=== PATIENT | male | born 1940 | race Caucasian/White ===

== ENCOUNTER 2017-09-08 17:19 | Inpatient (IN) ==
--- NOTE | 2017-09-08 17:39 | Emergency Department Note ---
Disposition Clinical Impression: Colitis, Pancytopenia Disposition: Admitted As Inpatient Condition: Good [facility]: [facility]Primary Care Provider[facility] - Forms: ED Satisfaction Letter, Work/School Release Nausea/Vomiting/Diarrhea HPI - General Chief complaint: ED Abdominal Pain Stated complaint: DIARRHEA/WEAKNESS Time Seen by Provider: 09/08/17 17:22 Source: patient Mode of arrival: EMS Limitations: no limitations Nursing Notes Reviewed: Yes Vital Signs Reviewed: Yes - History of Present Illness HPI Narrative: 76-year-old male history of myelodysplastic syndrome, prior C. difficile colitis who presents to the ER due to colitis and diarrhea. Patient reports he has had diarrhea for 3 days. He is going several times a day and describes his diarrhea as mucus. Reports this feels similar to when he had C. difficile back in May. Reports at that time he had been on antibiotics but denies any recent antibiotics or hospitalizations. He was seen in July at which time he was having a GI bleed and was sent to [place] for evaluation. He is chronically anemic secondary to myelodysplastic syndrome. He reports he has been nauseated with a few episodes of vomiting this morning. He was seen at the [facility] earlier today where they did a CT scan showing colitis from the hepatic flexure as well as severe splenomegaly. Patient was sent here for evaluation. Some shortness of breath as well as weakness. Pt Subjective Complaint: nausea, vomiting, diarrhea, abdominal pain Onset (ago): day(s) Description of Diarrhea: mucous Associated Abdominal Pain: Yes If pain, Location of pain: LLQ, RLQ Improves with: nothing Worsens with: nonthing Associated symptoms: Reports: nausea/vomiting - Related Data Allergies Allergy/AdvReac Type Severity Reaction Status Date / Time metformin AdvReac See Verified 07/14/17 11:04 Comments niacin AdvReac Fl[place] Verified 07/14/17 11:04 nitroglycerin AdvReac See Verified 07/14/17 11:04 Comments All systems ED: reviewed and negative except as stated. Constitutional: Denies: fever Cardiovascular: Denies: chest pain Respiratory: Reports: dyspnea Gastrointestinal: Reports: abdominal pain, nausea, vomiting, diarrhea Genitourinary: Denies: dysuria, hematuria Past Medical History - Past Medical History Attestation: Yes The following information was validated with the patient. Source: patient Medical history: Reports: CHF, diabetes, renal disease Psychiatric history: Reports: no psych history - Social History Smoking Status: Former smoker Smokeless Tobacco Status: No Alcohol use: Reports: none Drug use: Reports: none Physical Exam - General Limitations: no limitations General appearance: alert, in no apparent distress - Head Head exam: atraumatic, normocephalic - Eye Eye exam: Present: normal appearance - ENT ENT exam: normal exam - Neck Neck exam: Present: normal inspection, full ROM - Chest Chest inspection: Present: normal inspection, symmetric chest wall rise - Respiratory Respiratory exam: Present: normal lung sounds bilaterally - Cardiovascular Cardiovascular exam: Present: normal rhythm, tachycardia, normal heart sounds - Abdominal Exam Abdominal exam: Present: soft, tenderness (Mild lower abdominal tenderness). Absent: guarding, rigidity - Extremities Exam Extremities exam: Present: normal inspection, full ROM - Expanded Upper Extremity Exam Shoulder exam: Present: normal inspection, full ROM Arm exam: Present: normal inspection, full ROM Elbow exam: Present: normal inspection, full ROM Forearm/Wrist exam: Present: normal inspection, full ROM Hand exam: Present: normal inspection, full ROM - Expanded Lower Extremity Exam Hip/Pelvis exam: Present: normal inspection, full ROM Upper leg exam: Present: normal inspection, full ROM Knee exam: Present: normal inspection, full ROM Lower leg exam: Present: normal inspection, full ROM Ankle exam: Present: normal inspection, full ROM Foot/toe exam: Present: normal inspection, full ROM - Psychiatric Psychiatric exam: Present: normal affect - Skin Skin exam: Present: warm, dry, intact Course Course Narrative: Patient seen and examined. Vital signs reviewed. We will obtain repeat abdominal labs as well as C. difficile toxin and urinalysis. Labs from [place] reviewed showing pancytopenia with a WBC of 2.8, hemoglobin 7.8, platelets 34 as well as a BUN 52 and a creatinine of 2.34. - Reevaluation(s) Reevaluation #1: Discussed results of lab work with the patient and family. He again denies that he is having any GI bleeding and reports this is nothing like when he was here the previous time and sent to [place]. He is noted to be anemic at 6.8. He was about 7 at the [facility] likely delusional from receiving IV fluids there. He denies any bleeding from any source at this time. He is not on any antiplatelet or anticoagulation medications. Patient typed and screened and 1 unit of blood ordered for transfusion. We will also treat with Cipro and Flagyl as well as oral vancomycin. Vital Signs Pulse Rate 111 09/08/17 17:39 Respiratory Rate 18 09/08/17 17:39 Blood Pressure 127/65 09/08/17 17:39 O2 Sat by Pulse Oximetry 95 09/08/17 17:39 Temperature 98.6 F 09/08/17 18:30 Pulse Rate 111 09/08/17 18:30 Respiratory Rate 18 09/08/17 18:30 Blood Pressure 127/65 09/08/17 18:30 O2 Sat by Pulse Oximetry 95 09/08/17 18:30 Oxygen Delivery Oxygen Delivery Room Air Nausea/Vomiting/Diarrhea - MDM Narrative Medical decision making narrative: 76-year-old male presents to the ER due to diarrhea for 3 days. He has had numerous episodes of mucousy diarrhea at home. He has had C. difficile colitis once in the past in May treated inpatient. Denies any recent antibiotic use. He was seen at the [facility] where he had a CT scan showing colitis of the hepatic flexure as well as splenomegaly. He is noted to be pancytopenic here with a history of myelodysplastic syndrome. He has an acute kidney injury with a creatinine of 2.3 here. C. difficile toxin assay obtained. He is started empirically on oral vancomycin as well as Cipro and Flagyl and admitted to the hospitalist service.. - Lab Data Lab results reviewed: Yes I reviewed the patient's lab results. Result diagrams: 09/08/17 18:10 09/08/17 18:10 Lab Results 09/08/17 09/08/17 09/08/17 Range/Units 17:57 18:10 18:10 WBC 2.1 L (4.3-11.1) K/mcL RBC 2.08 L (4.19-5.50) M/mcL Hgb 6.8 L (12.9-16.9) g/dL Hct 23.4 L (37.5-50.1) % MCV 112.5 H (83.0-100.0) fL MCH 32.7 (28.0-33.3) pg MCHC 29.1 L (31.6-35.5) g/dL RDW 29.6 H (11.5-14.5) % Plt Count 30 L* (140-400) K/mcL Seg Neutrophils % 56.0 % Band Neutrophils % 4.0 (0-4) % Lymphocytes % 22.0 % Monocytes % 18.0 % Neutrophils # 1.3 L (1.6-8.9) K/mcL Lymphocytes # 0.5 L (0.6-4.6) K/mcL Monocytes # 0.4 (0.0-1.3) K/mcL Platelet Estimate Decreased L (Normal) Polychromasia 1+ A (Not Present) Poikilocytosis 2+ A (Not Present) Anisocytosis 2+ A (Not Present) PT 14.4 H (9.4-12.1) Seconds INR 1.3 Sodium (136-145) mEq/L Potassium (3.5-5.1) mEq/L Chloride (98-107) mEq/L Carbon Dioxide (23-29) mEq/L BUN (8-23) mg/dL Creatinine (0.70-1.30) mg/dL Est GFR ( Amer) (> 60) Est GFR (Non-Af Amer) (> 60) BUN/Creatinine Ratio (6-26) Glucose (70-105) mg/dL Calculated Osmolality (280-300) Calcium (8.6-10.3) mg/dL Total Bilirubin (0.3-1.0) mg/dL Direct Bilirubin (0.0-0.2) mg/dL Indirect Bilirubin (0.0-1.2) mg/dL AST (13-39) Units/L ALT (7-52) Units/L Alkaline Phosphatase (34-104) Units/L B-Natriuretic Peptide (Less than 100) pg/mL Serum Total Protein (6.4-8.9) g/dL Albumin (3.5-5.7) g/dL Globulin (2.4-3.5) g/dL Albumin/Globulin Ratio (1.1-2.2) Lipase (11-82) Units/L Stl C. diff Tox B Gene Negative (Negative) 09/08/17 09/08/17 Range/Units 18:10 18:10 WBC (4.3-11.1) K/mcL RBC (4.19-5.50) M/mcL Hgb (12.9-16.9) g/dL Hct (37.5-50.1) % MCV (83.0-100.0) fL MCH (28.0-33.3) pg MCHC (31.6-35.5) g/dL RDW (11.5-14.5) % Plt Count (140-400) K/mcL Seg Neutrophils % % Band Neutrophils % (0-4) % Lymphocytes % % Monocytes % % Neutrophils # (1.6-8.9) K/mcL Lymphocytes # (0.6-4.6) K/mcL Monocytes # (0.0-1.3) K/mcL Platelet Estimate (Normal) Polychromasia (Not Present) Poikilocytosis (Not Present) Anisocytosis (Not Present) PT (9.4-12.1) Seconds INR Sodium 136 (136-145) mEq/L Potassium 5.1 (3.5-5.1) mEq/L Chloride 108 H (98-107) mEq/L Carbon Dioxide 19 L (23-29) mEq/L BUN 57 H (8-23) mg/dL Creatinine 2.28 H (0.70-1.30) mg/dL Est GFR ( Amer) 34 L (> 60) Est GFR (Non-Af Amer) 28 L (> 60) BUN/Creatinine Ratio 25 (6-26) Glucose 196 H (70-105) mg/dL Calculated Osmolality 303 H (280-300) Calcium 8.2 L (8.6-10.3) mg/dL Total Bilirubin 2.0 H (0.3-1.0) mg/dL Direct Bilirubin 0.9 H (0.0-0.2) mg/dL Indirect Bilirubin 1.1 (0.0-1.2) mg/dL AST 20 (13-39) Units/L ALT 15 (7-52) Units/L Alkaline Phosphatase 362 H (34-104) Units/L B-Natriuretic Peptide 358 H (Less than 100) pg/mL Serum Total Protein 5.7 L (6.4-8.9) g/dL Albumin 2.7 L (3.5-5.7) g/dL Globulin 3.0 (2.4-3.5) g/dL Albumin/Globulin Ratio 0.9 L (1.1-2.2) Lipase 16 (11-82) Units/L Stl C. diff Tox B Gene (Negative) - Radiology Data Radiology results reviewed: Yes I reviewed the patient's radiology results. Randall - Randall Situation: Demographics, MOA Background: Presenting Complaint, Relevant PMH, Meds, & Allergies Assessment: Course and respsone to treatment, Exam Concerns, Patient/Family Expectation, Pertinant Lab Results Recommendation: Barrier(s) to disposition, Recommendation based on pending studies, treatments, or consults Randall Report Given to: Dr. Dulce Pereira Repor Time: 19:18
--- NOTE | 2017-09-08 17:49 | Emergency Department Note ---
START Narrative - START START: I examined this patient and my medical decision-making was reviewed with the Resident Physician. I agree with the documented findings, disposition and treatment plan as described except to the extent set forth below. 76-year-old male sent from the OR for concerns for infectious colitis and possible C. difficile colitis. Patient had a history of C. difficile in the past. He is complaining of some abdominal cramping. They did a CT abdomen and pelvis at the [facility] which showed colitis throughout the transverse colon and hepatic flexure region. Patient has been having intermittent bloody jelly- type stools. We will start him on Levaquin, Flagyl, oral vancomycin. We will admit the patient here at our facility.
[2017-09-08] MEDS ORDERED: 0.9 % Sodium Chloride 1,000 ML IVC ONE (18:09)
[2017-09-08 18:25] LABS: INR 1.3; Prothrombin Time 14.4 Seconds (9.4-12.1)
[2017-09-08] MEDS ORDERED: 0.9 % Sodium Chloride 1,000 ML IVC SCH (18:30)
[2017-09-08 18:35] LABS: Albumin 2.7 g/dL (3.5-5.7); Albumin/Globulin Ratio 0.9 (1.1-2.2); Bilirubin,Direct 0.9 mg/dL (0.0-0.2); Bilirubin,Indirect 1.1 mg/dL (0.0-1.2); Calcium 8.2 mg/dL (8.6-10.3); Potassium 5.1 mEq/L (3.5-5.1); Total Protein 5.7 g/dL (6.4-8.9)
[2017-09-08 18:38] LABS: Hematocrit 23.4 % (37.5-50.1); Hemoglobin 6.8 g/dL (12.9-16.9); Mean Corpuscular HGB Conc 29.1 g/dL (31.6-35.5); Mean Corpuscular Hemoglobin 32.7 pg (28.0-33.3); Mean Corpuscular Volume 112.5 fL (83.0-100.0); Red Blood Count 2.08 M/mcL (4.19-5.50); Red Cell Distribution Width 29.6 % (11.5-14.5)
[2017-09-08 18:39] LABS: Platelet Count 30 K/mcL (140-400)
[2017-09-08 18:41] LABS: Anisocytosis 2+ (Not Present); Lymphocytes # 0.5 K/mcL (0.6-4.6); Monocytes # 0.4 K/mcL (0.0-1.3); Neutrophils # 1.3 K/mcL (1.6-8.9); Platelet Estimate Decreased (Normal); Poikilocytosis 2+ (Not Present); Polychromasia 1+ (Not Present)
[2017-09-08] MEDS ORDERED: MetroNIDAZOLE 500 MG/100 ML 500 MG/100 ML BAG IVPB ONE (18:54)
[2017-09-08] MEDS ORDERED: Levofloxacin 750 MG/150 ML 750 MG/150 ML BAG IVPB ONE (18:54)
[2017-09-08] MEDS ORDERED: Vancomycin Oral Soln 250 MG/5 ML UDC PO ONE (19:14)
[2017-09-08] MEDS ORDERED: *HR* Morphine 2 MG/ML SYRINGE IVP PRN (19:43)
[2017-09-08] MEDS ORDERED: Ipratropium/Albuterol Neb 3 ML IH PRN (19:43)
[2017-09-08] MEDS ORDERED: *HR* Dextrose 50 % in Water (Syg) 50 ML SYRINGE IVP PRN (20:04)
[2017-09-08] MEDS ORDERED: Dextrose Gel 15 GM/37.5 ML TUBE PO PRN ×2 (20:04)
[2017-09-08] MEDS ORDERED: D5% in Water 1,000 ML IVC PRN (20:04)
[2017-09-08] MEDS ORDERED: Ondansetron 4 MG/2 ML VIAL IVP PRN (20:05)
[2017-09-08] MEDS ORDERED: Naloxone 0.4 MG/ML INJ IVP PRN (20:05)
--- NOTE | 2017-09-08 20:13 | Internal Med History&Physical ---
Date of Encounter: 09/08/17 Time of Encounter: 20:10 Assessment and Plan (1) Sepsis Current visit: Yes Status: Acute Sepsis secondary to acute colitis Continue ciprofloxacin and Flagyl Send panel Hold hydration as the patient is receiving 1 unit of blood, has history of diastolic CHF and currently has pedal edema Protonix for GI prophylaxis and sequential compression devices for DVT prophylaxis. The patient will be admitted as inpatient, expected to stay more than 2 midnights, DNR CC arrest DNI. Time spent on this admission 40 minutes Qualifiers: Sepsis type: sepsis due to unspecified organism Qualified Code(s): A41.9 - Sepsis, unspecified organism (2) Myelodysplastic syndrome Current visit: Yes Status: Acute Consider platelet transfusion (3) Chronic anemia Current visit: Yes Status: Acute Receive 1 unit of blood, monitor and consider further transfusions (4) Chronic kidney disease, stage IV (severe) Current visit: Yes Status: Acute (5) Diabetes Current visit: Yes Status: Acute Continue insulin Qualifiers: Diabetes mellitus type: type 2 Diabetes mellitus complication status: without complication Diabetes mellitus skilled nursing insulin use: with senior project accountant use Qualified Code(s): E11.9 - Type 2 diabetes mellitus without complications ; Z79.4 - jail (current) use of insulin; Z79.4 - jail (current) use of insulin; Z79.4 - division supervisor (current) use of insulin; Z79.4 - jail ( current) use of insulin (6) Colitis Current visit: Yes Status: Acute (7) Pancytopenia Current visit: Yes Status: Acute Internal Medicine - H&P: HPI Chief complaint: diarrhea and abdominal pain Admitted From: Emergency Dept History of present illness: Mr. James is a 76 year old male with a PMHx of C diff in the past, myelodysplastic syndrome, chronic kidney disease stage IV, GI bleed in July , pancytopenia, systolic CHF, diabetes type 2 insulin-dependent, MRSA. Patient came complaining of 3 days of mucus diarrhea, very watery. [place] the [place] initially and a CT scan showed acute colitis in the hepatic flexure, also splenomegaly. White blood cell count is 2.1 hemoglobin 6.8 with no signs of acute bleeding, platelets are 30 which she has a history of bicytopenia before, creatinine is 2.28 glucose 196, bilirubin total 2, alkaline phosphatase 362 BNP is 358 and a proBNP was 6324, patient has some bilateral lower extremity swelling. C. difficile test was negative here in the emergency room. He received oral vancomycin IV Flagyl and ciprofloxacin. Heart rate was 112, the patient was complaining of nausea and vomiting without any blood. Abdominal pain has improved slightly Past Med Surg Social Fam HX - Past Medical History Medical history: CHF (Diastolic CHF with an ejection fraction of 45-50%), diabetes (Insulin-dependent), renal disease (Chronic kidney disease of stage IV) , other (Cirrhosis, hypothyroidism, gout, prostate cancer, GI bleeding July , pancytopenia secondary to myelodysplastic syndrome, diabetes type 2 insulin- dependent, MRSA colonization, spinal stenosis, peripheral/diabetic neuropathy, hypertriglyceridemia, hyperlipidemia, diaphragmatic hernia, hypertension, gastric ulcers, PUD, esophagitis, GERD, osteoarthritis, tobacco use in the past) Psychiatric history: no psych history - Past Surgical History Surgical History: other (Left upper chest port, prostate seed, sciatic nerve for surgery) - Social History Smoking Status: Former smoker Smokeless Tobacco Status: No Alcohol use: none Drug use: none - Additional Family History Additional family history: Mother with diabetes Internal Medicine - H&P: Meds 3 Allergy/AdvReac Type Severity Reaction Status Date / Time metformin AdvReac See Verified 07/14/17 11:04 Comments niacin AdvReac Flushing Verified 07/14/17 11:04 nitroglycerin AdvReac See Verified 07/14/17 11:04 Comments All Systems PM: A 10-system review of systems was performed and is negative for pertinent findings except as documented above in the HPI. Review of systems: No chest pain, shortness of breath, other systems out of the 10 reviewed were negative. Extremely weak - Constitutional Vitals: Temp Pulse Resp BP Pulse Ox 98.6 F 111 18 124/64 95 09/08/17 18:30 09/08/17 18:30 09/08/17 20:01 09/08/17 20:01 09/08/17 18:30 General appearance: Present: A&O X 3 - Head Head exam: Present: atraumatic, normocephalic - Eye Eye exam: Present: PERRL, conjuntiva pink, sclera anicteric Pupils: Present: PERRL - Neck Neck exam general surgery: Present: supple, trachea midline. Absent: lymphadenopathy - Respiratory Respiratory exam: Present: CTAB. Absent: accessory muscle use, rales, rhonchi, wheezes - Cardiovascular Cardiovascular exam: Present: RRR, +S1, +S2, tachycardia. Absent: diastolic murmur, gallop, rubs, systolic murmur - GI/Abdominal GI/Abdominal exam: Present: normal bowel sounds, soft, no peritoneal signs. Absent: distended, tenderness - Extremities Exam Extremities exam: Present: pedal edema (+1 pitting edema in both lower extremities), warm, radial pulses palpable and symmetrical. Absent: calf tenderness, cyanotic - Neurological Exam Neurological exam: Present: CN II-XII intact, oriented X3, no focal deficits. Absent: pronater drift, facial droop, speech deficit - Skin Skin exam: Present: dry, intact Internal Med - H&P Results - Labs CBC & Chem 7: 09/08/17 18:10 09/08/17 18:10
[2017-09-08 21:14] LABS: Adenovirus F 40/41 PCR Not detected (Not detect); Astrovirus PCR Not detected (Not detect); C.difficile Toxin A/B by PCR Not detected (Not detect); Campylobacter by PCR Not detected (Not detect); Cryptosporidium by PCR Not detected (Not detect); Cyclospora cayetanensis PCR Not detected (Not detect); E. coli O157 by PCR Not detected (Not detect); Entamoeba histolytica PCR Not detected (Not detect); Enteroaggregative E.coli(EAEC) Not detected (Not detect); Enteropathogenic E.coli(EPEC) Not detected (Not detect); Enterotoxigenic E.coli (ETEC) Not detected (Not detect); Giardia lamblia PCR Not detected (Not detect); Norovirus GI/GII PCR ***DETECTED*** (Not detect); Plesiomonas shigelloides PCR Not detected (Not detect); Rotavirus A PCR Not detected (Not detect); Salmonella PCR Not detected (Not detect); Sapovirus PCR Not detected (Not detect); Shig/EnteroinvasiveE coli EIEC Not detected (Not detect); Shigalike tox-prod E coli STEC Not detected (Not detect); Vibrio PCR Not detected (Not detect); Vibrio cholerae PCR Not detected (Not detect); Yersinia enterocolitica PCR Not detected (Not detect)
[2017-09-08] MEDS: Pantoprazole 40 MG VIAL IVP SCH (22:11)
[2017-09-08] MEDS: *HR* Morphine 2 MG/ML SYRINGE IVP PRN (22:11)
[2017-09-08] MEDS: Gabapentin 100 MG CAPSULE PO SCH (22:11)
[2017-09-09] MEDS ORDERED: 0.9 % Sodium Chloride 250 ML ONE ×3 (00:45→22:03)
[2017-09-09] MEDS: Acetaminophen 325 MG TABLET PO PRN ×2 (01:37→20:55)
[2017-09-09 05:42] LABS: Basophils % 0.7 %; Eosinophils % 0.7 %; Hematocrit 22.5 % (37.5-50.1)
[2017-09-09 05:43] LABS: Hemoglobin 6.8 g/dL (12.9-16.9); Immature Granulocytes % 3.3 % (0-4); Lymphocytes # 0.4 K/mcL (0.6-4.6); Lymphocytes % 25.2 %; Mean Corpuscular HGB Conc 30.2 g/dL (31.6-35.5); Mean Corpuscular Hemoglobin 32.7 pg (28.0-33.3); Mean Corpuscular Volume 108.2 fL (83.0-100.0); Monocytes # 0.3 K/mcL (0.0-1.3); Monocytes % 19.2 %; Neutrophils # 0.8 K/mcL (1.6-8.9); Red Blood Count 2.08 M/mcL (4.19-5.50); Red Cell Distribution Width 28.2 % (11.5-14.5); Segmented Neutrophils % 50.9 %
[2017-09-09 05:45] LABS: Calcium 7.9 mg/dL (8.6-10.3); Potassium 4.9 mEq/L (3.5-5.1)
[2017-09-09 06:11] LABS: Platelet Count 22 K/mcL (140-400)
[2017-09-09 06:16] LABS: Anisocytosis 1+ (Not Present); Poikilocytosis 1+ (Not Present); Polychromasia 2+ (Not Present)
[2017-09-09 06:17] LABS: Platelet Estimate Decreased (Normal)
[2017-09-09] MEDS: Insulin LISPRO 300 UNITS/3 ML VIAL SQ SCH ×4 (08:24→21:01)
[2017-09-09] MEDS: Pantoprazole 40 MG VIAL IVP SCH (08:24)
[2017-09-09] MEDS: Gabapentin 100 MG CAPSULE PO SCH ×2 (08:24→20:55)
[2017-09-09] MEDS ORDERED: Isosorbide MONOnitrate (24 HR) 30 MG TAB.ER.24H PO SCH (09:00)
[2017-09-09 09:34] LABS: Hematocrit 23.7 % (37.5-50.1)
[2017-09-09 16:48] LABS: Hematocrit 21.2 % (37.5-50.1); Hemoglobin 6.5 g/dL (12.9-16.9)
--- NOTE | 2017-09-09 17:30 | Internal Med Progress Note ---
Date of Encounter: 09/09/17 Time of Encounter: 17:26 - Constitutional Vitals: Temp Pulse Resp BP Pulse Ox 97.5 F L 82 18 117/63 96 09/09/17 15:44 09/09/17 15:44 09/09/17 15:44 09/09/17 15:44 09/09/17 15:44 General appearance: Present: A&O X 3 Exam: - Head Head exam: Present: atraumatic, normocephalic - Eye Eye exam: Present: PERRL, conjuntiva pink, sclera anicteric Pupils: Present: PERRL - Neck Neck exam general surgery: Present: supple, trachea midline. Absent: lymphadenopathy - Respiratory Respiratory exam: Present: CTAB. Absent: accessory muscle use, rales, rhonchi, wheezes - Cardiovascular Cardiovascular exam: Present: RRR, +S1, +S2, tachycardia. Absent: diastolic murmur, gallop, rubs, systolic murmur - GI/Abdominal GI/Abdominal exam: Present: normal bowel sounds, soft, no peritoneal signs. Absent: distended, tenderness - Extremities Exam Extremities exam: Present: pedal edema (+1 pitting edema in both lower extremities), warm, radial pulses palpable and symmetrical. Absent: calf tenderness, cyanotic - Neurological Exam Neurological exam: Present: CN II-XII intact, oriented X3, no focal deficits. Absent: pronater drift, facial droop, speech deficit - Skin Skin exam: Present: dry, intact Internal Medicine: Result - Labs CBC & Chem 7: 09/09/17 15:00 09/09/17 05:19 Labs: Short CBC 09/09/17 09/09/17 09/09/17 Range/Units 05:19 09:13 15:00 WBC 1.5 L (4.3-11.1) K/mcL Hgb 6.8 L 7.0 L 6.5 L (12.9-16.9) g/dL Hct 22.5 L 23.7 L 21.2 L (37.5-50.1) % Plt Count 22 L* (140-400) K/mcL Neutrophils # 0.8 L (1.6-8.9) K/mcL BMP 09/09/17 05:19 Sodium 133 L Potassium 4.9 Chloride 107 Carbon Dioxide 20 L BUN 58 H Creatinine 2.39 H Glucose 142 H Calcium 7.9 L - ABG Interpretation ABG results: PT/INR, D-dimer PT 14.4 Seconds (9.4-12.1) H 09/08/17 18:10 Consult Discharge Plan - Plan [facility]errals: [facility] [Primary Care Provider] -
[2017-09-09] MEDS ORDERED: Furosemide 40 MG/4 ML VIAL IVP ONE (17:38)
[2017-09-09] MEDS: MetroNIDAZOLE 500 MG/100 ML 500 MG/100 ML BAG IVPB SCH (22:35)
[2017-09-10 03:14] LABS: Hemoglobin 8.1 g/dL (12.9-16.9)
[2017-09-10] MEDS: MetroNIDAZOLE 500 MG/100 ML 500 MG/100 ML BAG IVPB SCH ×3 (05:59→21:37)
[2017-09-10] MEDS: Gabapentin 100 MG CAPSULE PO SCH ×2 (09:11→21:37)
[2017-09-10] MEDS: Isosorbide MONOnitrate (24 HR) 30 MG TAB.ER.24H PO SCH (09:11)
[2017-09-10] MEDS: Pantoprazole 40 MG VIAL IVP SCH ×2 (09:12→09:13)
[2017-09-10] MEDS: Insulin LISPRO 300 UNITS/3 ML VIAL SQ SCH ×4 (09:13→21:11)
[2017-09-10 18:18] LABS: Eosinophils % 0.3 %
[2017-09-10 18:20] LABS: Basophils % 0.5 %; Hematocrit 28.6 % (37.5-50.1); Hemoglobin 8.8 g/dL (12.9-16.9); Immature Granulocytes % 2.3 % (0-4); Immature Platelets 9.3 % (1.1-6.1); Lymphocytes # 0.6 K/mcL (0.6-4.6); Lymphocytes % 13.9 %; Mean Corpuscular HGB Conc 30.8 g/dL (31.6-35.5); Mean Corpuscular Hemoglobin 31.4 pg (28.0-33.3); Mean Corpuscular Volume 102.1 fL (83.0-100.0); Mean Platelet Volume 10.8 fL (9.4-12.4); Monocytes # 0.5 K/mcL (0.0-1.3); Monocytes % 12.6 %; Neutrophils # 2.8 K/mcL (1.6-8.9); Segmented Neutrophils % 70.4 %
[2017-09-10 18:24] LABS: Platelet Count 22 K/mcL (140-400)
[2017-09-10 18:49] LABS: Anisocytosis 3+ (Not Present)
[2017-09-10 18:54] LABS: Hypochromasia Present (Not Present); Polychromasia 1+ (Not Present)
[2017-09-10 18:55] LABS: Basophilic Stippling 1+ (Not Present); Platelet Estimate Marked Decrease (Normal); Poikilocytosis 1+ (Not Present); Tear Drop Cells 1+ (Not Present)
--- NOTE | 2017-09-10 19:24 | Internal Med Progress Note ---
Date of Encounter: 09/10/17 Time of Encounter: 19:22 (Patient seen earlier today) - Assessment and plan (1) Sepsis Current Visit: Yes Status: Acute Assessment and plan: Positive sepsis criteria associated with colitis. C.diff PCR negative but PCR for rotovirus positive. Qualifiers: Sepsis type: sepsis due to unspecified organism Qualified Code(s): A41.9 - Sepsis, unspecified organism (2) Colitis Current Visit: Yes Status: Acute Assessment and plan: CT-Abd[facility]elvis from [facility] reportedly showed colitis at hepatic flexure and transverse colon. Continue empiric Cipro and Flagyl. GI consult to be ordered (3) Myelodysplastic syndrome Current Visit: Yes Status: Acute Assessment and plan: Neupogen and Procrit restarted. Given 2 units of PRBCs overnight. continue to monitor Neurophil count. (4) Diabetes Current Visit: Yes Status: Acute Assessment and plan: Continue current mgt. Qualifiers: Diabetes mellitus type: type 2 Diabetes mellitus complication status: without complication Diabetes mellitus fci insulin use: with rat exterminator use Qualified Code(s): E11.9 - Type 2 diabetes mellitus without complications ; Z79.4 - director long term care (current) use of insulin; Z79.4 - director long term care (current) use of insulin; Z79.4 - care home (current) use of insulin; Z79.4 - care home ( current) use of insulin - Subjective Interval history: Worsening anemia s/p transfusion of 2 Units PRBC overnight. Abdominal pain and generalized weakness. Lower extremity edema worseing. - Constitutional Vitals: Temp Pulse Resp BP Pulse Ox 97.7 F 83 14 119/53 98 09/10/17 19:10 09/10/17 19:10 09/10/17 19:10 09/10/17 19:10 09/10/17 19:10 General appearance: Present: A&O X 3 - Head Head exam: Present: atraumatic, normocephalic - Eye Eye exam: Present: EOMI, PERRL - Neck Neck exam general surgery: Present: supple, trachea midline - Respiratory Respiratory exam: Present: CTAB - Cardiovascular Additional comments: RRR w/o M,R or G - GI/Abdominal Additional comments: Soft without distention but mildl generalized tenderness. BS all 4 quads. No RBT - Skin Additional comments: Warm and dry without rashes Internal Medicine: Result - Labs CBC & Chem 7: 09/10/17 18:00 09/09/17 05:19 Labs: Short CBC 09/10/17 09/10/17 Range/Units 02:59 18:00 WBC 4.0 L D (4.3-11.1) K/mcL Hgb 8.1 L D 8.8 L (12.9-16.9) g/dL Hct 26.0 L 28.6 L (37.5-50.1) % Plt Count 22 L* (140-400) K/mcL Neutrophils # 2.8 (1.6-8.9) K/mcL - ABG Interpretation ABG results: PT/INR, D-dimer PT 14.4 Seconds (9.4-12.1) H 09/08/17 18:10 Consult Discharge Plan - Plan [facility]errals: [facility] [Primary Care Provider] -
[2017-09-10] MEDS: Acetaminophen 325 MG TABLET PO PRN (19:26)
[2017-09-11] MEDS: MetroNIDAZOLE 500 MG/100 ML 500 MG/100 ML BAG IVPB SCH ×3 (05:57→20:09)
[2017-09-11] MEDS: Insulin LISPRO 300 UNITS/3 ML VIAL SQ SCH ×4 (08:45→20:10)
[2017-09-11] MEDS: Isosorbide MONOnitrate (24 HR) 30 MG TAB.ER.24H PO SCH (09:01)
[2017-09-11] MEDS: Gabapentin 100 MG CAPSULE PO SCH ×2 (09:02→20:10)
[2017-09-11 16:50] LABS: Hemoglobin 8.5 g/dL (12.9-16.9); Mean Corpuscular Hemoglobin 31.7 pg (28.0-33.3); Red Blood Count 2.68 M/mcL (4.19-5.50)
[2017-09-11 16:52] LABS: Hematocrit 27.6 % (37.5-50.1); Immature Platelets 12.1 % (1.1-6.1); Mean Corpuscular HGB Conc 30.8 g/dL (31.6-35.5); Nucleated Red Blood Cells 2.8 /100 WBC (0); Red Cell Distribution Width 27.3 % (11.5-14.5)
[2017-09-11 17:01] LABS: Platelet Count 21 K/mcL (140-400)
[2017-09-11 17:18] LABS: Anisocytosis 3+ (Not Present); Lymphocytes # 0.5 K/mcL (0.6-4.6); Monocytes # 0.4 K/mcL (0.0-1.3); Polychromasia 1+ (Not Present)
[2017-09-11 17:19] LABS: Platelet Estimate Marked Decrease (Normal); Toxic Granulation Present (Not Present)
--- NOTE | 2017-09-11 19:44 | Internal Med Progress Note ---
Date of Encounter: 09/11/17 Time of Encounter: 19:41 (Seen in late afternoon) - Assessment and plan (1) Sepsis Current Visit: Yes Status: Resolved Qualifiers: Sepsis type: sepsis due to unspecified organism Qualified Code(s): A41.9 - Sepsis, unspecified organism (2) Colitis Current Visit: Yes Status: Acute Assessment and plan: GI consult to be ordered in am. With his severe thrombocytopenia he wouldnt be a good candidate for a colonoscopy. Continue Cipro and Flagyl. If he becomes neutropenic expand abx coverage (3) Myelodysplastic syndrome Current Visit: Yes Status: Acute Assessment and plan: Neupogen and Procrit restarted. Given 2 units of PRBCs overnight. continue to monitor Neurophil count. (4) Diabetes Current Visit: Yes Status: Acute Qualifiers: Diabetes mellitus type: type 2 Diabetes mellitus complication status: without complication Diabetes mellitus halfway insulin use: with parts counterman use Qualified Code(s): E11.9 - Type 2 diabetes mellitus without complications ; Z79.4 - terminal manager (current) use of insulin; Z79.4 - senior care (current) use of insulin; Z79.4 - senior care (current) use of insulin; Z79.4 - terminal manager ( current) use of insulin - Subjective Interval history: Leukopenia improved and no longer neutropenic after starting Neupogen. Anemai also improved after Transfusion 2 nights ago. He still c/o weakness. He reamians afebrile. His thrombocytopenia is slightly worse but no bleeding. His abdominal pain is essentially resolved. - Constitutional Vitals: Temp Pulse Resp BP Pulse Ox 97.5 F L 85 14 132/64 98 09/11/17 19:38 09/11/17 19:38 09/11/17 19:38 09/11/17 19:38 09/11/17 19:38 General appearance: Present: A&O X 3 - Head Head exam: Present: atraumatic, normal inspection, normocephalic - Eye Eye exam: Present: EOMI, PERRL, conjuntiva pink, sclera anicteric. Absent: conjunctival injection, scleral icterus Pupils: Present: PERRL - Neck Neck exam general surgery: Present: supple, trachea midline. Absent: lymphadenopathy - Respiratory Respiratory exam: Present: CTAB. Absent: accessory muscle use, rales, rhonchi, wheezes - Cardiovascular Cardiovascular exam: Present: RRR, +S1, +S2. Absent: diastolic murmur, gallop, rubs, systolic murmur - GI/Abdominal GI/Abdominal exam: Present: normal bowel sounds, soft, no peritoneal signs. Absent: distended, guarding, tenderness - Extremities Exam Extremities exam: Present: warm, radial pulses palpable and symmetrical. Absent : calf tenderness, cyanotic, pedal edema - Neurological Exam Neurological exam: Present: CN II-XII intact, oriented X3, no focal deficits. Absent: pronater drift, facial droop, speech deficit - Skin Skin exam: Present: dry, intact Internal Medicine: Result - Labs CBC & Chem 7: 09/11/17 16:33 09/09/17 05:19 Labs: Short CBC 09/11/17 Range/Units 16:33 WBC 6.4 D (4.3-11.1) K/mcL Hgb 8.5 L (12.9-16.9) g/dL Hct 27.6 L (37.5-50.1) % Plt Count 21 L* (140-400) K/mcL Neutrophils # 5.0 (1.6-8.9) K/mcL - ABG Interpretation ABG results: PT/INR, D-dimer PT 14.4 Seconds (9.4-12.1) H 09/08/17 18:10 Consult Discharge Plan - Plan [facility]errals: [facility] [Primary Care Provider] -
[2017-09-11] MEDS ORDERED: *HR* LORazepam 2 MG/ML VIAL IVP PRN (19:45)
[2017-09-11] MEDS: Acetaminophen 325 MG TABLET PO PRN (20:17)
[2017-09-12] MEDS: MetroNIDAZOLE 500 MG/100 ML 500 MG/100 ML BAG IVPB SCH ×3 (06:17→21:40)
[2017-09-12] MEDS: Insulin LISPRO 300 UNITS/3 ML VIAL SQ SCH ×4 (09:12→21:38)
[2017-09-12] MEDS: Gabapentin 100 MG CAPSULE PO SCH ×2 (09:14→21:37)
[2017-09-12] MEDS: HydrOXYzine SYP 10 MG/5 ML UDC PO SCH ×2 (09:14→21:37)
[2017-09-12] MEDS: Isosorbide MONOnitrate (24 HR) 30 MG TAB.ER.24H PO SCH (09:14)
[2017-09-12 09:46] LABS: Hematocrit 28.8 % (37.5-50.1); Hemoglobin 8.7 g/dL (12.9-16.9); Mean Corpuscular HGB Conc 30.2 g/dL (31.6-35.5)
[2017-09-12 09:47] LABS: Immature Platelets 9.5 % (1.1-6.1); Mean Corpuscular Hemoglobin 31.4 pg (28.0-33.3); Monocytes # 0.4 K/mcL (0.0-1.3); Nucleated Red Blood Cells 4.7 /100 WBC (0); Red Blood Count 2.77 M/mcL (4.19-5.50); Red Cell Distribution Width 27.6 % (11.5-14.5)
[2017-09-12 10:01] LABS: Platelet Count 24 K/mcL (140-400)
[2017-09-12 10:04] LABS: Calcium 7.9 mg/dL (8.6-10.3); Magnesium 1.6 mg/dL (1.6-2.6); Potassium 4.2 mEq/L (3.5-5.1)
[2017-09-12 10:22] LABS: Eosinophils # 0.1 K/mcL (0.0-0.6); Lymphocytes # 0.7 K/mcL (0.6-4.6); Neutrophils # 3.1 K/mcL (1.6-8.9); Platelet Estimate Decreased (Normal); Polychromasia 2+ (Not Present)
[2017-09-12] MEDS: Acetaminophen 325 MG TABLET PO PRN (16:42)
--- NOTE | 2017-09-12 20:50 | Internal Med Progress Note ---
Date of Encounter: 09/12/17 Time of Encounter: 20:47 (Seen earlier this afternoon) - Assessment and plan (1) Sepsis Current Visit: Yes Status: Resolved Assessment and plan: Positive sepsis criteria associated with colitis. C.diff PCR negative but PCR for rotovirus positive. I spoke with GI and he feels his colitis is likely ischemic colitis and current therapy should be continued. Continue Cipro plus Flagyl. Continue fluid and electrolyte replacemant as needed given ongoing diarrhea. Consider cholestyramine. Continue contact precautions. Qualifiers: Sepsis type: sepsis due to unspecified organism Qualified Code(s): A41.9 - Sepsis, unspecified organism (2) Colitis Current Visit: Yes Status: Acute (3) Myelodysplastic syndrome Current Visit: Yes Status: Acute Assessment and plan: Neupogen and Procrit restarted. Given 2 units of PRBCs initially. Continue to monitor Neurophil count. If he develops neuropenic fever or decline in PMNs consider ID consult and escalations of empiric ABx coverage. If platelets drop further or any signs of bleeding consult Heme and consider platelet transfusion. (4) Diabetes Current Visit: Yes Status: Acute Qualifiers: Diabetes mellitus type: type 2 Diabetes mellitus complication status: without complication Diabetes mellitus predatory animal exterminator insulin use: with halfway use Qualified Code(s): E11.9 - Type 2 diabetes mellitus without complications ; Z79.4 - intermediate (current) use of insulin; Z79.4 - termite control service representative (current) use of insulin; Z79.4 - termite control service representative (current) use of insulin; Z79.4 - intermediate ( current) use of insulin - Subjective Interval history: Still c/o generalized weakness and having multiple bouts of nonbloody diarrhea per day. His WBC had improved yesterday but started trending downward again. No fever and PMNs improved. - Constitutional Vitals: Temp Pulse Resp BP Pulse Ox 97.2 F L 86 15 121/60 94 09/12/17 17:00 09/12/17 17:00 09/12/17 17:00 09/12/17 17:00 09/12/17 17:00 General appearance: Present: A&O X 3 - Head Head exam: Present: atraumatic, normocephalic - Eye Eye exam: Present: EOMI, PERRL, conjuntiva pink, sclera anicteric Pupils: Present: PERRL - Neck Neck exam general surgery: Present: supple, trachea midline. Absent: lymphadenopathy - Respiratory Respiratory exam: Present: CTAB. Absent: accessory muscle use, rales, rhonchi, wheezes - Cardiovascular Cardiovascular exam: Present: RRR, +S1, +S2. Absent: diastolic murmur, gallop, rubs, systolic murmur - GI/Abdominal GI/Abdominal exam: Present: normal bowel sounds, soft, no peritoneal signs. Absent: distended, firm, guarding, tenderness - Extremities Exam Extremities exam: Present: warm, radial pulses palpable and symmetrical. Absent : calf tenderness, cyanotic, pedal edema - Neurological Exam Neurological exam: Present: CN II-XII intact, oriented X3, no focal deficits. Absent: pronater drift, facial droop, speech deficit - Skin Skin exam: Present: dry, intact Internal Medicine: Result - Labs CBC & Chem 7: 09/12/17 09:10 09/12/17 09:10 Labs: Short CBC 09/12/17 Range/Units 09:10 WBC 4.3 (4.3-11.1) K/mcL Hgb 8.7 L (12.9-16.9) g/dL Hct 28.8 L (37.5-50.1) % Plt Count 24 L* (140-400) K/mcL Neutrophils # 3.1 (1.6-8.9) K/mcL BMP 09/12/17 09:10 Sodium 136 Potassium 4.2 Chloride 114 H Carbon Dioxide 16 L BUN 56 H Creatinine 2.48 H Glucose 201 H Calcium 7.9 L - ABG Interpretation ABG results: PT/INR, D-dimer PT 14.4 Seconds (9.4-12.1) H 09/08/17 18:10 Consult Discharge Plan - Plan Referrals: [facility] [Outside]
[2017-09-13] MEDS: MetroNIDAZOLE 500 MG/100 ML 500 MG/100 ML BAG IVPB SCH ×3 (06:06→22:07)
[2017-09-13] MEDS ORDERED: Cholestyramine 4 GM POWD.PACK PO SCH (07:30)
[2017-09-13] MEDS: Insulin LISPRO 300 UNITS/3 ML VIAL SQ SCH ×4 (09:25→22:08)
[2017-09-13] MEDS: HydrOXYzine SYP 10 MG/5 ML UDC PO SCH ×2 (09:26→22:05)
[2017-09-13] MEDS: Isosorbide MONOnitrate (24 HR) 30 MG TAB.ER.24H PO SCH (09:26)
[2017-09-13] MEDS: Gabapentin 100 MG CAPSULE PO SCH ×2 (09:26→22:06)
[2017-09-13] MEDS: Cholestyramine 4 GM POWD.PACK PO SCH ×2 (11:09→22:07)
--- NOTE | 2017-09-13 14:16 | Internal Med Progress Note ---
Date of Encounter: 09/13/17 Time of Encounter: 14:16 - Assessment and plan (1) Sepsis Current Visit: Yes Status: Resolved Assessment and plan: Positive sepsis criteria associated with colitis. C.diff PCR negative but PCR for rotovirus positive. I spoke with GI and he feels his colitis is likely ischemic colitis and current therapy should be continued. Continue Cipro plus Flagyl. Continue fluid and electrolyte replacemant as needed given ongoing diarrhea. Cholestyramine started . Continue contact precautions. Qualifiers: Sepsis type: sepsis due to unspecified organism Qualified Code(s): A41.9 - Sepsis, unspecified organism (2) Colitis Current Visit: Yes Status: Acute Assessment and plan: GI consult to be ordered in am. With his severe thrombocytopenia he wouldnt be a good candidate for a colonoscopy. Continue Cipro and Flagyl. If he becomes neutropenic expand abx coverage (3) Myelodysplastic syndrome Current Visit: Yes Status: Acute (4) Diabetes Current Visit: Yes Status: Acute Qualifiers: Diabetes mellitus type: type 2 Diabetes mellitus complication status: without complication Diabetes mellitus intermediate card tender insulin use: with intermediate card tender use Qualified Code(s): E11.9 - Type 2 diabetes mellitus without complications ; Z79.4 - termite control service representative (current) use of insulin; Z79.4 - termite control service representative (current) use of insulin; Z79.4 - termite control service representative (current) use of insulin; Z79.4 - termite control service representative ( current) use of insulin - Subjective Interval history: Still c/o generalized weakness and having multiple bouts of nonbloody diarrhea per day but frequency decreased today. Overall he feels marginally better. No new complaints. - Constitutional Vitals: Temp Pulse Resp BP Pulse Ox 97.7 F 82 20 120/64 99 09/13/17 11:11 09/13/17 11:11 09/13/17 11:11 09/13/17 11:11 09/13/17 11:11 General appearance: Present: cooperative, A&O X 3, no acute distress, answers questions appropriately - Head Head exam: Present: atraumatic, normocephalic - Eye Eye exam: Present: EOMI, PERRL, conjuntiva pink, sclera anicteric Pupils: Present: PERRL - Neck Neck exam general surgery: Present: supple, trachea midline. Absent: lymphadenopathy - Respiratory Respiratory exam: Present: CTAB. Absent: accessory muscle use, rales, rhonchi, wheezes - Cardiovascular Cardiovascular exam: Present: RRR, +S1, +S2. Absent: diastolic murmur, gallop, rubs, systolic murmur - GI/Abdominal GI/Abdominal exam: Present: hyperactive bowel sounds, normal bowel sounds, soft , no peritoneal signs. Absent: distended, guarding, rebound, rigid, tenderness - Extremities Exam Extremities exam: Present: warm, radial pulses palpable and symmetrical. Absent : calf tenderness, cyanotic, pedal edema - Neurological Exam Neurological exam: Present: CN II-XII intact, oriented X3, no focal deficits. Absent: pronater drift, facial droop, speech deficit - Skin Skin exam: Present: dry, intact Internal Medicine: Result - Labs CBC & Chem 7: 09/12/17 09:10 09/12/17 09:10 - ABG Interpretation ABG results: PT/INR, D-dimer PT 14.4 Seconds (9.4-12.1) H 09/08/17 18:10 Consult Discharge Plan - Plan Referrals: [facility] [Outside]
[2017-09-13] MEDS ORDERED: Furosemide 20 MG TABLET PO PRN (14:18)
[2017-09-13] MEDS: Acetaminophen 325 MG TABLET PO PRN (16:13)
[2017-09-13] MEDS: Insulin DETEMIR 100 UNIT/ML X5UNITS SQ SCH (22:06)
[2017-09-14] MEDS: MetroNIDAZOLE 500 MG/100 ML 500 MG/100 ML BAG IVPB SCH ×3 (06:47→21:46)
[2017-09-14 08:25] LABS: Hemoglobin 9.2 g/dL (12.9-16.9)
[2017-09-14 08:27] LABS: Hematocrit 30.3 % (37.5-50.1); Immature Platelets 7.3 % (1.1-6.1); Mean Corpuscular HGB Conc 30.4 g/dL (31.6-35.5); Mean Corpuscular Hemoglobin 31.8 pg (28.0-33.3); Mean Corpuscular Volume 104.8 fL (83.0-100.0); Nucleated Red Blood Cells 9.5 /100 WBC (0); Red Blood Count 2.89 M/mcL (4.19-5.50); Red Cell Distribution Width 28.3 % (11.5-14.5)
[2017-09-14] MEDS: HydrOXYzine SYP 10 MG/5 ML UDC PO SCH ×2 (08:47→21:46)
[2017-09-14] MEDS: Gabapentin 100 MG CAPSULE PO SCH ×2 (08:47→21:47)
[2017-09-14] MEDS: Isosorbide MONOnitrate (24 HR) 30 MG TAB.ER.24H PO SCH (08:47)
[2017-09-14] MEDS: Insulin LISPRO 300 UNITS/3 ML VIAL SQ SCH ×4 (08:50→22:07)
[2017-09-14 08:51] LABS: Calcium 8.3 mg/dL (8.6-10.3); Potassium 4.6 mEq/L (3.5-5.1)
[2017-09-14 09:01] LABS: Platelet Count 23 K/mcL (140-400)
[2017-09-14 09:23] LABS: Monocytes # 0.3 K/mcL (0.0-1.3)
[2017-09-14 09:25] LABS: Lymphocytes # 0.6 K/mcL (0.6-4.6); Neutrophils # 1.3 K/mcL (1.6-8.9)
[2017-09-14 09:26] LABS: Platelet Estimate Marked Decrease (Normal)
[2017-09-14] MEDS: Cholestyramine 4 GM POWD.PACK PO SCH ×2 (12:54→19:45)
--- NOTE | 2017-09-14 16:04 | Internal Med Progress Note ---
Date of Encounter: 09/14/17 Time of Encounter: 16:03 - Assessment and plan (1) Sepsis Current Visit: Yes Status: Resolved Qualifiers: Sepsis type: sepsis due to unspecified organism Qualified Code(s): A41.9 - Sepsis, unspecified organism (2) Colitis Current Visit: Yes Status: Acute (3) Myelodysplastic syndrome Current Visit: Yes Status: Acute (4) Diabetes Current Visit: Yes Status: Acute Qualifiers: Diabetes mellitus type: type 2 Diabetes mellitus complication status: without complication Diabetes mellitus superintendent marine oil terminal insulin use: with shelter use Qualified Code(s): E11.9 - Type 2 diabetes mellitus without complications ; Z79.4 - [facility] (current) use of insulin; Z79.4 - [facility] (current) use of insulin; Z79.4 - [facility] (current) use of insulin; Z79.4 - [facility] ( current) use of insulin - Subjective Interval history: Still c/o generalized weakness but no diarrhea since yesterday evening - Constitutional Vitals: Temp Pulse Resp BP Pulse Ox 98.3 F 84 16 115/64 98 09/14/17 05:56 09/14/17 05:56 09/14/17 05:56 09/14/17 05:56 09/14/17 05:56 General appearance: Present: cooperative, A&O X 3, no acute distress, answers questions appropriately Internal Medicine: Result - Labs CBC & Chem 7: 09/14/17 08:02 09/14/17 08:02 Labs: Short CBC 09/14/17 Range/Units 08:02 WBC 2.2 L (4.3-11.1) K/mcL Hgb 9.2 L (12.9-16.9) g/dL Hct 30.3 L (37.5-50.1) % Plt Count 23 L* (140-400) K/mcL Neutrophils # 1.3 L (1.6-8.9) K/mcL BMP 09/14/17 08:02 Sodium 138 Potassium 4.6 Chloride 117 H Carbon Dioxide 17 L BUN 47 H Creatinine 2.20 H Glucose 155 H Calcium 8.3 L - ABG Interpretation ABG results: PT/INR, D-dimer PT 14.4 Seconds (9.4-12.1) H 09/08/17 18:10 Consult Discharge Plan - Plan Referrals: [facility] [Outside]
[2017-09-14] MEDS: Acetaminophen 325 MG TABLET PO PRN (17:47)
[2017-09-14] MEDS: Insulin DETEMIR 100 UNIT/ML X5UNITS SQ SCH (22:00)
[2017-09-15] MEDS: *HR* Morphine 2 MG/ML SYRINGE IVP PRN (01:31)
[2017-09-15] MEDS: MetroNIDAZOLE 500 MG/100 ML 500 MG/100 ML BAG IVPB SCH ×3 (05:33→20:54)
[2017-09-15] MEDS: HydrOXYzine SYP 10 MG/5 ML UDC PO SCH ×2 (08:11→20:54)
[2017-09-15] MEDS: Gabapentin 100 MG CAPSULE PO SCH ×2 (08:11→20:54)
[2017-09-15] MEDS: Isosorbide MONOnitrate (24 HR) 30 MG TAB.ER.24H PO SCH (08:11)
[2017-09-15] MEDS: Insulin LISPRO 300 UNITS/3 ML VIAL SQ SCH ×4 (08:11→20:55)
[2017-09-15] MEDS: Cholestyramine 4 GM POWD.PACK PO SCH ×2 (12:29→17:13)
[2017-09-15 17:14] LABS: Hemoglobin 8.9 g/dL (12.9-16.9); Mean Corpuscular Hemoglobin 31.6 pg (28.0-33.3); Red Blood Count 2.82 M/mcL (4.19-5.50)
[2017-09-15 17:15] LABS: Basophils % 1.8 %; Eosinophils % 0.6 %; Hematocrit 29.7 % (37.5-50.1); Immature Granulocytes % 8.8 % (0-4); Lymphocytes # 0.7 K/mcL (0.6-4.6); Lymphocytes % 39.2 %; Mean Corpuscular Volume 105.3 fL (83.0-100.0); Mean Platelet Volume 12.6 fL (9.4-12.4); Monocytes # 0.2 K/mcL (0.0-1.3); Monocytes % 12.3 %; Neutrophils # 0.6 K/mcL (1.6-8.9); Nucleated Red Blood Cells 9.9 /100 WBC (0); Red Cell Distribution Width 27.9 % (11.5-14.5); Segmented Neutrophils % 37.3 %
[2017-09-15 17:21] LABS: Platelet Count 22 K/mcL (140-400)
[2017-09-15 17:38] LABS: Albumin 2.9 g/dL (3.5-5.7); Albumin/Globulin Ratio 1.1 (1.1-2.2); Calcium 8.1 mg/dL (8.6-10.3); Globulin 2.7 g/dL (2.4-3.5); Potassium 4.8 mEq/L (3.5-5.1); Total Protein 5.6 g/dL (6.4-8.9)
[2017-09-15 18:12] LABS: Platelet Estimate Marked Decrease (Normal)
[2017-09-15] MEDS: Acetaminophen 325 MG TABLET PO PRN (18:34)
--- NOTE | 2017-09-15 18:39 | Internal Med Progress Note ---
Date of Encounter: 09/15/17 Time of Encounter: 18:37 (Seen earlier today) - Assessment and plan (1) Sepsis Current Visit: Yes Status: Resolved Assessment and plan: Positive sepsis criteria associated with colitis. C.diff PCR negative but PCR for rotovirus positive. I spoke with GI and he feels his colitis is likely ischemic colitis and current therapy should be continued. Continue Cipro plus Flagyl for 10-14 days. Continue fluid and electrolyte replacemant as needed given ongoing diarrhea. Cholestyramine started . Continue contact precautions. Qualifiers: Sepsis type: sepsis due to unspecified organism Qualified Code(s): A41.9 - Sepsis, unspecified organism (2) Colitis Current Visit: Yes Status: Acute Assessment and plan: GI consult to be ordered in am. With his severe thrombocytopenia he wouldnt be a good candidate for a colonoscopy. Continue Cipro and Flagyl. If he becomes neutropenic expand abx coverage. His platelets are stable at 20-23K with no bleeding. His PMNs are > 1000. (3) Myelodysplastic syndrome Current Visit: Yes Status: Acute Assessment and plan: Neupogen and Procrit restarted. Given 2 units of PRBCs initially. Continue to monitor Neurophil count. Both platelet and PMNs have been low but stable (4) Diabetes Current Visit: Yes Status: Acute Qualifiers: Diabetes mellitus type: type 2 Diabetes mellitus complication status: without complication Diabetes mellitus alf insulin use: with alf use Qualified Code(s): E11.9 - Type 2 diabetes mellitus without complications ; Z79.4 - termite technician (current) use of insulin; Z79.4 - [facility] (current) use of insulin; Z79.4 - [facility] (current) use of insulin; Z79.4 - [facility] ( current) use of insulin - Subjective Interval history: He feels much better today and hasn't had diarrhea for over 36 hrs. - Constitutional Vitals: Temp Pulse Resp BP Pulse Ox 97.7 F 80 15 115/64 100 09/15/17 07:05 09/15/17 07:05 09/15/17 07:05 09/15/17 07:05 09/15/17 07:05 General appearance: Present: cooperative, A&O X 3, no acute distress, answers questions appropriately - Neck Neck exam general surgery: Present: supple, trachea midline. Absent: lymphadenopathy - Respiratory Respiratory exam: Present: CTAB. Absent: accessory muscle use, rales, rhonchi, wheezes Internal Medicine: Result - Labs CBC & Chem 7: 09/15/17 16:49 09/15/17 16:49 Labs: Short CBC 09/15/17 Range/Units 16:49 WBC 1.7 L (4.3-11.1) K/mcL Hgb 8.9 L (12.9-16.9) g/dL Hct 29.7 L (37.5-50.1) % Plt Count 22 L* (140-400) K/mcL Neutrophils # 0.6 L (1.6-8.9) K/mcL BMP 09/15/17 16:49 Sodium 135 L Potassium 4.8 Chloride 115 H Carbon Dioxide 14 L BUN 47 H Creatinine 2.31 H Glucose 208 H Calcium 8.1 L Liver Function 09/15/17 Range/Units 16:49 Total Bilirubin 1.0 (0.3-1.0) mg/dL AST 25 (13-39) Units/L ALT 15 (7-52) Units/L Alkaline Phosphatase 303 H (34-104) Units/L Albumin 2.9 L (3.5-5.7) g/dL - ABG Interpretation ABG results: PT/INR, D-dimer PT 14.4 Seconds (9.4-12.1) H 09/08/17 18:10 Consult Discharge Plan - Plan Referrals: [facility] [Outside]
[2017-09-15] MEDS: Insulin DETEMIR 100 UNIT/ML X5UNITS SQ SCH (20:54)
[2017-09-16] MEDS: MetroNIDAZOLE 500 MG/100 ML 500 MG/100 ML BAG IVPB SCH ×3 (05:28→20:00)
[2017-09-16] MEDS: HydrOXYzine SYP 10 MG/5 ML UDC PO SCH ×2 (09:38→19:59)
[2017-09-16] MEDS: Gabapentin 100 MG CAPSULE PO SCH ×2 (09:38→19:58)
[2017-09-16] MEDS: Isosorbide MONOnitrate (24 HR) 30 MG TAB.ER.24H PO SCH (09:39)
[2017-09-16] MEDS: Loratadine 10 MG TABLET PO SCH (09:40)
[2017-09-16] MEDS: Insulin LISPRO 300 UNITS/3 ML VIAL SQ SCH ×3 (09:45→17:54)
[2017-09-16] MEDS: Cholestyramine 4 GM POWD.PACK PO SCH ×2 (12:27→20:02)
--- NOTE | 2017-09-16 16:55 | Internal Med Progress Note ---
Date of Encounter: 09/16/17 Time of Encounter: 16:53 - Assessment and plan (1) Sepsis Current Visit: Yes Status: Resolved Assessment and plan: Positive sepsis criteria associated with colitis. C.diff PCR negative but PCR for rotovirus positive. I spoke with GI and he feels his colitis is likely ischemic colitis and current therapy should be continued. He will likely need a colonoscopy at point in the future, but because of his thrombocytopenia this will need to wait. Continue Cipro plus Flagyl for 10-14 days. Today is day #7. Lasix was restarted and IVFs d/c's. Today his dose of lasix was increased to 6o mg daily. Cholestyramine can likely be d/c'd soon. Continue contact precautions. Qualifiers: Sepsis type: sepsis due to unspecified organism Qualified Code(s): A41.9 - Sepsis, unspecified organism (2) Colitis Current Visit: Yes Status: Acute Assessment and plan: Continue Cipro and Flagyl 10-14 days. colonoscopy as outpatient when platelets increased. (3) Myelodysplastic syndrome Current Visit: Yes Status: Acute Assessment and plan: Neupogen and Procrit restarted. [facility] He was given 2 units of PRBCs initially. Continue to monitor Neurophil count. Neutropenic precautions ordered but no fever. He will continue to f/u with heme.Onc in [place]. (4) Diabetes Current Visit: Yes Status: Acute Qualifiers: Diabetes mellitus type: type 2 Diabetes mellitus complication status: without complication Diabetes mellitus terminal operations manager insulin use: with terminal operations manager use Qualified Code(s): E11.9 - Type 2 diabetes mellitus without complications ; Z79.4 - longterm (current) use of insulin; Z79.4 - intermediate designer (current) use of insulin; Z79.4 - longterm (current) use of insulin; Z79.4 - intermediate designer ( current) use of insulin - Subjective Interval history: Still no diarrhea for 48 hrs. His strength is returning to baseline. His has LE edema. - Constitutional Vitals: Temp Pulse Resp BP Pulse Ox 98.2 F 85 15 141/68 99 09/16/17 16:37 09/16/17 16:37 09/16/17 16:37 09/16/17 16:37 09/16/17 16:37 General appearance: Present: cooperative, A&O X 3, no acute distress, answers questions appropriately - Head Head exam: Present: atraumatic, normal inspection, normocephalic - Eye Eye exam: Present: EOMI, PERRL - ENT ENT exam: Present: mucous membranes dry, normal exam, normal oropharynx - Neck Neck exam general surgery: Present: supple, trachea midline. Absent: tenderness , nuchal rigidity, thyromegaly - Respiratory Respiratory exam: Present: CTAB. Absent: accessory muscle use, chest wall tenderness, rhonchi, stridor - Cardiovascular Cardiovascular exam: Present: RRR, +S1, +S2. Absent: JVD - Expanded Psychiatric Exam Focused psych exam: Absent: paranoid, pressured speech, psychomotor agitation, restlessness - Skin Skin exam: Present: dry, normal color, warm. Absent: petechiae, rash Internal Medicine: Result - Labs CBC & Chem 7: 09/15/17 16:49 09/15/17 16:49 Labs: Short CBC 09/15/17 Range/Units 16:49 WBC 1.7 L (4.3-11.1) K/mcL Hgb 8.9 L (12.9-16.9) g/dL Hct 29.7 L (37.5-50.1) % Plt Count 22 L* (140-400) K/mcL Neutrophils # 0.6 L (1.6-8.9) K/mcL BMP 09/15/17 16:49 Sodium 135 L Potassium 4.8 Chloride 115 H Carbon Dioxide 14 L BUN 47 H Creatinine 2.31 H Glucose 208 H Calcium 8.1 L Liver Function 09/15/17 Range/Units 16:49 Total Bilirubin 1.0 (0.3-1.0) mg/dL AST 25 (13-39) Units/L ALT 15 (7-52) Units/L Alkaline Phosphatase 303 H (34-104) Units/L Albumin 2.9 L (3.5-5.7) g/dL - ABG Interpretation ABG results: PT/INR, D-dimer PT 14.4 Seconds (9.4-12.1) H 09/08/17 18:10 Consult Discharge Plan - Plan Referrals: [facility] [Outside]
[2017-09-16] MEDS: Furosemide 40 MG TABLET PO SCH (17:53)
[2017-09-16] MEDS: Acetaminophen 325 MG TABLET PO PRN (19:13)
[2017-09-16] MEDS: *HR* Morphine 2 MG/ML SYRINGE IVP PRN (19:57)
[2017-09-16] MEDS: Insulin DETEMIR 100 UNIT/ML X5UNITS SQ SCH (19:58)
[2017-09-17] MEDS: Insulin LISPRO 300 UNITS/3 ML VIAL SQ SCH ×3 (01:42→11:49)
[2017-09-17] MEDS ORDERED: *HR* HYDROcodone/Acet 5/325 mg TABLET PO PRN (05:21)
[2017-09-17] MEDS: MetroNIDAZOLE 500 MG/100 ML 500 MG/100 ML BAG IVPB SCH ×2 (05:51→14:04)
[2017-09-17] MEDS: Furosemide 40 MG TABLET PO SCH (05:52)
[2017-09-17 06:50] LABS: Basophils % 1.1 %; Eosinophils % 0.6 %; Hematocrit 28.2 % (37.5-50.1); Hemoglobin 8.5 g/dL (12.9-16.9); Immature Granulocytes % 16.2 % (0-4); Immature Platelets 7.3 % (1.1-6.1); Lymphocytes # 0.6 K/mcL (0.6-4.6); Lymphocytes % 30.7 %; Mean Corpuscular HGB Conc 30.1 g/dL (31.6-35.5); Mean Platelet Volume 13.1 fL (9.4-12.4); Monocytes # 0.2 K/mcL (0.0-1.3); Monocytes % 13.4 %; Neutrophils # 0.7 K/mcL (1.6-8.9); Nucleated Red Blood Cells 5.6 /100 WBC (0); Red Blood Count 2.66 M/mcL (4.19-5.50); Red Cell Distribution Width 27.9 % (11.5-14.5)
[2017-09-17 06:51] LABS: Potassium 5.1 mEq/L (3.5-5.1)
[2017-09-17 07:07] LABS: Platelet Count 17 K/mcL (140-400)
[2017-09-17 08:19] LABS: Platelet Estimate Decreased (Normal)
[2017-09-17] MEDS: Isosorbide MONOnitrate (24 HR) 30 MG TAB.ER.24H PO SCH (08:28)
[2017-09-17] MEDS: Gabapentin 100 MG CAPSULE PO SCH (08:28)
[2017-09-17] MEDS: Loratadine 10 MG TABLET PO SCH (08:29)
[2017-09-17] MEDS: HydrOXYzine SYP 10 MG/5 ML UDC PO SCH (08:30)
[2017-09-17 11:39] VITALS: BP 112/64
[2017-09-17] MEDS: Cholestyramine 4 GM POWD.PACK PO SCH (11:46)
--- NOTE | 2017-09-17 14:24 | Discharge Summary ---
Date of Encounter: 09/17/17 Time of Encounter: 11:00 - Discharge Diagnosis (1) Colitis Priority: Primary Status: Acute (2) Myelodysplastic syndrome Priority: Secondary Status: Acute - Discharge Medications Prescriptions: Ciprofloxacin HCl [Cipro] 250 mg PO BID #8 tab metroNIDAZOLE [Flagyl] 500 mg PO TID #12 tablet Home Medications: Atorvastatin Calcium [Lipitor] 10 mg PO DAILY 09/09/17 [History] Cholecalciferol (D-3) [Vitamin D] 1,000 unit PO DAILY 09/09/17 [History] Filgrastim [Neupogen] 480 mcg SQ TU 09/09/17 [History] Furosemide [Lasix] 40 mg PO BID 09/09/17 [History] Gabapentin [Neurontin] 200 mg PO BID 09/09/17 [History] Hydroxyzine HCl 20 mg PO BID 09/09/17 [History] Insulin NPH, HUMAN [HumuLIN N] 46 unit SQ QAM 09/09/17 [History] Insulin NPH, HUMAN [HumuLIN N] 50 units SQ QPM 09/09/17 [History] Isosorbide MONOnitrate (24 HR) [Imdur] 15 mg PO DAILY 09/09/17 [History] Levothyroxine Sodium [Levoxyl] 100 mcg PO DAILY 09/09/17 [History] Omeprazole 20 mg PO BID 09/09/17 [History] Propranolol [Inderal] 20 mg PO BID 09/09/17 [History] Darbepoetin [Aranesp] 500 mcg SQ QWEEK 09/10/17 [History] Calcitriol [Rocaltrol] 0.25 mcg PO MOWEFR 09/12/17 [History] Sodium Bicarbonate 325 mg PO BID 09/12/17 [History] Ciprofloxacin HCl [Cipro] 250 mg PO BID #8 tab 09/17/17 [Rx] metroNIDAZOLE [Flagyl] 500 mg PO TID #12 tablet 09/17/17 [Rx] Allergies/Adverse Reactions: 3 Allergy/AdvReac Type Severity Reaction Status Date / Time lorazepam AdvReac Hallucinati Verified 09/12/17 08:38 ng metformin AdvReac See Verified 07/14/17 11:04 Comments niacin AdvReac [place] Verified 07/14/17 11:04 nitroglycerin AdvReac See Verified 07/14/17 11:04 Comments Date of admission: 09/08/17 20:06 Primary care physician: [place]CP [place] Consults: 09/09/17 10:49 Consult to Earth Boring Machine Operator [CONS] Routine Reason for SW Consult: Discharge planning 09/09/17 10:50 Consult to Physical Therapy [CONS] Routine Comment: Evaluate, develop and implement POC Reason for Consult: as per social media strategist 09/09/17 10:51 Consult to Occupational Therapy [CONS] Routine Comment: Evaluate, develop and implement POC Reason for Consult: as per social media strategist - Patient Status Disposition: Home, Self-Care Condition: Good - Discharge Instructions Follow Up With: [facility] [Outside] - 09/25/17 12:30 pm Hospital course: Patient is a 76-year-old male with past medical history significant for C. 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 Patient reported a three-day history of watery-mucus diarrhea. He went to the [place] initially and a CT scan showed acute colitis in the hepatic flexure, also splenomegaly. White blood cell count is 2.1 hemoglobin 6.8 with no signs of acute bleeding, platelets are 30 which he has a history of pancytopenia. C. difficile test was negative here in the emergency room. He received oral vancomycin IV Flagyl and ciprofloxacin. During patients hospital stay he was found to be rotavirus positive PCR but C. difficile negative. Patients symptoms resolved after treatment of colitis with IV Cipro and IV Flagyl. Patient will be discharged to continue Cipro/Flagyl for 4 additional days to complete a 14 day course. Patient will follow up with primary care provider. - Time Spent with Patient Total time spent providing and/or coordinating discharge services: Less than 30 minutes - Constitutional Vitals: Temp Pulse Resp BP Pulse Ox 98.0 F 85 16 112/64 98 09/17/17 11:38 09/17/17 11:38 09/17/17 11:38 09/17/17 11:38 09/17/17 11:38 General appearance: Present: cooperative, A&O X 3, no acute distress, answers questions appropriately - Respiratory Respiratory exam: Present: CTAB. Absent: accessory muscle use, rales, rhonchi, wheezes
[2017-09-17] MEDS ORDERED: Furosemide 40 MG TABLET PO SCH (17:00)
== END 2017-09-17 15:34 | disposition home or self-care (01) | DRG 872 ==
LOC: EMEROO 17:19 → 3ANU 17:19 → SUATTDRO 20:06 → 3ANU 20:10
PROVIDERS: ADMIT Internal Medicine; ATTEND Hospitalist

== ENCOUNTER 2017-11-06 11:06 | Inpatient (IN) ==
--- NOTE | 2017-11-06 11:46 | Emergency Department Note ---
Disposition Clinical Impression: Blood loss anemia, Myelodysplasia (myelodysplastic syndrome) GI bleed Qualifiers: GI bleed type/associated pathology: unspecified gastrointestinal hemorrhage type Qualified Code(s): K92.2 - Gastrointestinal hemorrhage, unspecified Disposition: Admitted As Inpatient Condition: Fair Instructions: Gastrointestinal Bleeding (ED) [facility] Care Provider[facility] - Forms: ED Satisfaction Letter Time of Disposition: 14:28 Weakness HPI - General Chief complaint: ED Weakness Stated complaint: NVD Time Seen by Provider: 11/06/17 11:11 Source: patient Mode of arrival: EMS Nursing Notes Reviewed: Yes Vital Signs Reviewed: Yes - History of Present Illness HPI Narrative: 76-year-old male since ED from the [facility] for evaluation of low hemoglobin. He has a history of myelodysplastic disorder and requires frequent transfusions. He was seen at the [facility] today because of worsening generalized fatigue and exertional dyspnea. They reported a low hemoglobin and sent him here for evaluation. Patient alsohad dark stool for the past 4-5 days. Complains of exertional dyspnea but no chest pain. No abdominal pain. Complains of nausea without vomiting. Denies any recent use of any NSAIDs or anticoagulants. Recent medication change was he was switched from furosemide to torsemide per his ID physician. Denies fevers, chills or rigors. No long distance travel. Pt Subjective Complaint: generalized weakness/fatigue Onset (ago): day(s) Duration: constant Location: generalized Migration: none Pain Severity: none Pain Scale: 2 Improves with: rest Worsens with: exertion Associated symptoms: Reports: dark stools, nausea/vomiting, shortness of breath. Denies: chest pain, easy bruising, fever/chills, headaches - Related Data Home Medications Medication Instructions Recorded Confirmed Atorvastatin Calcium [Lipitor] 10 mg PO DAILY 09/09/17 11/06/17 Cholecalciferol (D-3) [Vitamin D] 1,000 unit PO DAILY 09/09/17 11/06/17 Filgrastim [Neupogen] 480 mcg SQ TU 09/09/17 11/06/17 Furosemide [Lasix] 40 mg PO BID 09/09/17 11/06/17 Gabapentin [Neurontin] 200 mg PO BID 09/09/17 11/06/17 Hydroxyzine HCl 20 mg PO BID 09/09/17 11/06/17 Insulin NPH, HUMAN [HumuLIN N] 46 unit SQ QAM 09/09/17 11/06/17 Insulin NPH, HUMAN [HumuLIN N] 50 units SQ QPM 09/09/17 11/06/17 Isosorbide MONOnitrate (24 HR) 15 mg PO DAILY 09/09/17 11/06/17 [Imdur] Omeprazole 20 mg PO BID 09/09/17 11/06/17 Propranolol [Inderal] 20 mg PO BID 09/09/17 11/06/17 Darbepoetin [Aranesp] 500 mcg SQ QWEEK 09/10/17 11/06/17 Levothyroxine Sodium [Levoxyl] 125 mcg PO DAILY 11/06/17 11/06/17 Multivit-Min/FA/Lycopen/Lutein [A 1 tab PO DAILY 11/06/17 11/06/17 Thru Z Select Multivit Tab] Oxycodone HCl/Acetaminophen 1 tab PO Q6H PRN 11/06/17 11/06/17 [Percocet 5-325 mg Tablet] metOLazone [Zaroxolyn] 5 mg PO DAILY 11/06/17 11/06/17 Allergies Allergy/AdvReac Type Severity Reaction Status Date / Time lorazepam AdvReac Hallucinati Verified 09/12/17 08:38 ng metformin AdvReac See Verified 07/14/17 11:04 Comments niacin AdvReac Flushing Verified 07/14/17 11:04 nitroglycerin AdvReac See Verified 07/14/17 11:04 Comments All systems ED: reviewed and negative except as stated. Constitutional: Reports: weakness. Denies: fever, chills Cardiovascular: Reports: dyspnea on exertion. Denies: chest pain, orthopnea Respiratory: Reports: dyspnea Gastrointestinal: Reports: nausea. Denies: abdominal pain, vomiting Genitourinary: Denies: urgency, dysuria Musculoskeletal: Denies: back pain, neck pain Integumentary: Denies: rash Neurological: Denies: headache, weakness Past Medical History - Past Medical History Attestation: Yes The following information was validated with the patient. Medical history: Reports: CHF, diabetes, liver disease, renal disease, other Surgical history: Reports: other Psychiatric history: Reports: no psych history - Social History Smoking Status: Former smoker Smokeless Tobacco Status: No Alcohol use: Reports: none Drug use: Reports: none Physical Exam - General Limitations: no limitations General appearance: alert - Head Head exam: atraumatic, normocephalic - Eye Eye exam: Present: normal appearance - ENT ENT exam: normal exam, normal oropharynx - Neck Neck exam: Present: normal inspection - Chest Chest inspection: Present: normal inspection - Respiratory Respiratory exam: Present: other (Breath sounds are diminished in the right base ). Absent: normal lung sounds bilaterally - Cardiovascular Cardiovascular exam: Present: regular rate - Abdominal Exam Abdominal exam: Present: soft, Non-Tender - Extremities Exam Extremities exam: Present: normal inspection. Absent: tenderness - Expanded Lower Extremity Exam Ankle exam: Absent: swelling Foot/toe exam: Present: normal inspection. Absent: tenderness Neurovascular/Tendon exam: Present: normal capillary refill. Absent: pulse deficit - Back Exam Back exam: Present: normal inspection. Absent: tenderness, CVA tenderness (R), CVA tenderness (L) - Neurological Exam Neurological exam: Present: alert, oriented X3 - Psychiatric Psychiatric exam: Present: normal affect, normal mood - Skin Skin exam: Present: warm, dry Course - Reevaluation(s) Reevaluation #1: Patient with mild ecchymoses or presents with a hemoglobin of 5.9 and what appears be an active upper GI bleeding with a platelet count 21,000. We will get transfused 2 units of blood and a pack of platelets. There will be some delays because he has antibodies (likely secondary to multiple previous transfusions) and the products are coming from [employer]. Discussed with hospitalist service to admit The high probability of a clinically significant, sudden or life threatening deterioration of the [renal and cardiopulmonary] system(s) required my full and direct attention, intervention and personal management. The aggregate critical care time was [32] minutes. This time is in addition to time spent performing reported procedures but includes the following: []x Data Review and interpretation [x] Patient assessment and monitoring of vital signs [x] Documentation [x] Medication orders and management Time: 14:27 Reevaluation #2: D/W Dr. Mckinney and he will see in consult Time: 14:51 Vital Signs Temperature 98.1 F 11/06/17 11:14 Pulse Rate 96 11/06/17 11:14 Respiratory Rate 18 11/06/17 11:14 Blood Pressure 118/53 11/06/17 11:14 O2 Sat by Pulse Oximetry 100 11/06/17 11:14 Temperature 97.8 F 11/06/17 14:15 Pulse Rate 90 11/06/17 14:15 Respiratory Rate 15 11/06/17 14:15 Blood Pressure 102/57 11/06/17 14:06 O2 Sat by Pulse Oximetry 98 11/06/17 14:15 Oxygen Delivery Oxygen Delivery Room Air Weakness - Lab Data Result diagrams: 11/06/17 11:32 11/06/17 11:32 Lab Results 11/06/17 11/06/17 11/06/17 Range/Units 11:27 11:32 11:32 WBC 13.6 H (4.3-11.1) K/mcL RBC 1.73 L (4.19-5.50) M/mcL Hgb 5.9 L* (12.9-16.9) g/dL Hct 20.3 L (37.5-50.1) % MCV 117.3 H (83.0-100.0) fL MCH 34.1 H (28.0-33.3) pg MCHC 29.1 L (31.6-35.5) g/dL RDW 28.3 H (11.5-14.5) % Plt Count 21 L* (140-400) K/mcL MPV TNP Immature Gran % Test Not Performed Seg Neutrophils % 86.0 % Band Neutrophils % 2.0 (0-4) % Lymphocytes % 8.0 % Monocytes % 4.0 % Eosinophils % Test Not Performed Basophils % Test Not Performed Neutrophils # 12.0 H (1.6-8.9) K/mcL Lymphocytes # 1.1 (0.6-4.6) K/mcL Monocytes # 0.5 (0.0-1.3) K/mcL Eosinophils # Test Not Performed Basophils # Test Not Performed Nucleated RBCs/100 WBC 0.9 H (0) /100 WBC Dohle Bodies Present A (Not Present) Platelet Estimate Marked Decrease L (Normal) Immature Plt Fraction 14.8 H (1.1-6.1) % Polychromasia 1+ A (Not Present) Basophilic Stippling 1+ A (Not Present) Anisocytosis 3+ A (Not Present) PT 14.0 H (9.4-12.1) Seconds INR 1.3 APTT 30.9 (26.0-36.0) Seconds Sodium (136-145) mEq/L Potassium (3.5-5.1) mEq/L Chloride (98-107) mEq/L Carbon Dioxide (23-29) mEq/L BUN (8-23) mg/dL Creatinine (0.70-1.30) mg/dL Est GFR ( Amer) (> 60) Est GFR (Non-Af Amer) (> 60) BUN/Creatinine Ratio (6-26) Glucose (70-105) mg/dL Calculated Osmolality (280-300) Calcium (8.6-10.3) mg/dL Blood Type O POSITIVE Antibody Screen NEGATIVE Crossmatch See Detail 11/06/17 Range/Units 11:32 WBC (4.3-11.1) K/mcL RBC (4.19-5.50) M/mcL Hgb (12.9-16.9) g/dL Hct (37.5-50.1) % MCV (83.0-100.0) fL MCH (28.0-33.3) pg MCHC (31.6-35.5) g/dL RDW (11.5-14.5) % Plt Count (140-400) K/mcL MPV Immature Gran % Seg Neutrophils % % Band Neutrophils % (0-4) % Lymphocytes % % Monocytes % % Eosinophils % Basophils % Neutrophils # (1.6-8.9) K/mcL Lymphocytes # (0.6-4.6) K/mcL Monocytes # (0.0-1.3) K/mcL Eosinophils # Basophils # Nucleated RBCs/100 WBC (0) /100 WBC Dohle Bodies (Not Present) Platelet Estimate (Normal) Immature Plt Fraction (1.1-6.1) % Polychromasia (Not Present) Basophilic Stippling (Not Present) Anisocytosis (Not Present) PT (9.4-12.1) Seconds INR APTT (26.0-36.0) Seconds Sodium 134 L (136-145) mEq/L Potassium 3.7 (3.5-5.1) mEq/L Chloride 100 (98-107) mEq/L Carbon Dioxide 21 L (23-29) mEq/L BUN 118 H (8-23) mg/dL Creatinine 3.72 H (0.70-1.30) mg/dL Est GFR ( Amer) 19 L (> 60) Est GFR (Non-Af Amer) 16 L (> 60) BUN/Creatinine Ratio 32 H (6-26) Glucose 271 H (70-105) mg/dL Calculated Osmolality 325 H (280-300) Calcium 7.0 L (8.6-10.3) mg/dL Blood Type Antibody Screen Crossmatch
[2017-11-06 11:50] LABS: Nucleated Red Blood Cells 0.9 /100 WBC (0)
[2017-11-06 11:52] LABS: Hematocrit 20.3 % (37.5-50.1); Immature Platelets 14.8 % (1.1-6.1); Mean Corpuscular HGB Conc 29.1 g/dL (31.6-35.5); Mean Corpuscular Hemoglobin 34.1 pg (28.0-33.3); Mean Corpuscular Volume 117.3 fL (83.0-100.0); Red Blood Count 1.73 M/mcL (4.19-5.50); Red Cell Distribution Width 28.3 % (11.5-14.5)
[2017-11-06 12:00] LABS: INR 1.3
[2017-11-06 12:03] LABS: Activated Partial Thrombo Time 30.9 Seconds (26.0-36.0)
[2017-11-06] MEDS ORDERED: Pantoprazole 40 MG VIAL IVP ONE (12:03)
[2017-11-06 12:10] LABS: Potassium 3.7 mEq/L (3.5-5.1)
[2017-11-06 12:44] LABS: Hemoglobin 5.9 g/dL (12.9-16.9)
[2017-11-06 13:45] LABS: Dohle Bodies Present (Not Present); Lymphocytes # 1.1 K/mcL (0.6-4.6); Monocytes # 0.5 K/mcL (0.0-1.3); Platelet Estimate Marked Decrease (Normal)
[2017-11-06 13:47] LABS: Basophilic Stippling 1+ (Not Present)
[2017-11-06] MEDS ORDERED: 0.9 % Sodium Chloride 250 ML ONE ×2 (13:47→16:05)
[2017-11-06 13:48] LABS: Anisocytosis 3+ (Not Present); Polychromasia 1+ (Not Present)
[2017-11-06] MEDS ORDERED: 0.9 % Sodium Chloride 500 ML IVC ONE (14:12)
[2017-11-06] MEDS ORDERED: Ondansetron 4 MG/2 ML VIAL IVP PRN (14:33)
[2017-11-06] MEDS ORDERED: *HR* OxyCODONE Immed Rel 5 MG TABLET PO PRN (14:33)
[2017-11-06] MEDS ORDERED: Naloxone 0.4 MG/ML INJ IVP PRN (14:33)
[2017-11-06] MEDS ORDERED: D5% in Water 1,000 ML IVC PRN (14:33)
[2017-11-06] MEDS ORDERED: Dextrose Gel 15 GM/37.5 ML TUBE PO PRN ×2 (14:33)
[2017-11-06] MEDS ORDERED: *HR* Dextrose 50 % in Water (Syg) 50 ML SYRINGE IVP PRN (14:33)
[2017-11-06] MEDS ORDERED: Calcium Chloride 1,000 MG in 0.9 % Sodium Chloride 100 ML IVPB ONE (14:41)
--- NOTE | 2017-11-06 14:47 | Internal Med History&Physical ---
Date of Encounter: 11/06/17 Time of Encounter: 14:44 Assessment and Plan (1) Blood loss anemia Current visit: Yes Status: Acute Acute blood lows anemia secondary to possible upper GI bleed exacerbated by thrombocytopenia, has history of chronic anemia due to myelodysplastic syndrome Transfuse 3 units of red blood cells and 3 units of platelets Start IV fluids, NPO, Protonix IV twice a day Monitor CBC, GI consult Protonix for GI prophylaxis and sequential compression devices for DVT prophylaxis. The patient will be admitted as inpatient, expected to stay more than 2 midnights. Wishes to be a DNR CC arrest DNI. Time spent on this admission 40 minutes (2) GI bleed Current visit: Yes Status: Acute Qualifiers: GI bleed type/associated pathology: unspecified gastrointestinal hemorrhage type Qualified Code(s): K92.2 - Gastrointestinal hemorrhage, unspecified (3) Myelodysplastic syndrome Current visit: Yes Status: Acute (4) Chronic kidney disease, stage IV (severe) Current visit: No Status: Acute Acute on chronic renal failure in the setting of chronic kidney disease is stage IV Continue IV fluids (5) Diabetes Current visit: No Status: Acute Insulin sliding scale Qualifiers: Diabetes mellitus type: type 2 Diabetes mellitus complication status: without complication Diabetes mellitus termite inspector insulin use: with intermediate use Qualified Code(s): E11.9 - Type 2 diabetes mellitus without complications ; Z79.4 - intermodal truck driver (current) use of insulin; Z79.4 - intermodal truck driver (current) use of insulin; Z79.4 - intermodal truck driver (current) use of insulin; Z79.4 - care home ( current) use of insulin (6) Pancytopenia Current visit: No Status: Acute (7) Diastolic CHF Current visit: Yes Status: Acute Hold Lasix, hold propanolol, hold metolazone Fall precautions Qualifiers: Heart failure chronicity: chronic Qualified Code(s): I50.32 - Chronic diastolic (congestive) heart failure (8) Hypoglycemia Current visit: Yes Status: Acute Give IV calcium and recheck in the morning Internal Medicine - H&P: HPI Chief complaint: Severe weakness Admitted From: Emergency Dept History of present illness: Mr. James is a 76 year old male with a PMHx of C diff in the past, myelodysplastic syndrome, chronic kidney disease stage IV, GI bleed in July , pancytopenia, systolic CHF, diabetes type 2 insulin-dependent, MRSA. Patient came complaining of severe weakness for the past week, has been having dark stools for the past 7 days worse in the past 3. Hemoglobin is 5.9 and dropped from a prior level of 8.5. Has chronic thrombocytopenia and his platelets are 21 today. What cell count is 13.6. He was discharged last month from this hospital which he was diagnosed with acute colitis. The patient has been extremely weak, not able to stand up since yesterday, has not seen his physicians at the [facility]. BUNs elevated at 118 his creatinine has increased up to 3.72 from a baseline of 2.21. Calcium is also down at the level of 7. Glucose is 271, blood pressure is 91/49 but responding to fluids, the patient's heart rate is 91 but he takes metoprolol. Chest x-ray is unremarkable. Denies any fevers or other complaints. No NSAIDs, INR is 1.3 Past Med Surg Social Fam HX - Past Medical History Medical history: CHF, diabetes, liver disease, renal disease, other (Diastolic CHF with an ejection fraction of 45-50%), diabetes (Insulin-dependent), renal disease (Chronic kidney disease of stage IV), other (Cirrhosis, hypothyroidism, gout, prostate cancer, GI bleeding July, pancytopenia secondary to myelodysplastic syndrome, diabetes type 2 insulin-dependent, MRSA colonization, spinal stenosis, peripheral/diabetic neuropathy, hypertriglyceridemia, hyperlipidemia, diaphragmatic hernia, hypertension, gastric ulcers, PUD, esophagitis, GERD, osteoarthritis, tobacco use in the past, recent colitis)) Psychiatric history: no psych history - Past Surgical History Surgical History: other (Left upper chest port, prostate seed, sciatic nerve for surgery) - Social History Smoking Status: Former smoker Smokeless Tobacco Status: No Alcohol use: none Drug use: none - Additional Family History Additional family history: Mother with diabetes Internal Medicine - H&P: Meds Atorvastatin Calcium [Lipitor] 10 mg PO DAILY 09/09/17 [History] Cholecalciferol (D-3) [Vitamin D] 1,000 unit PO DAILY 09/09/17 [History] Filgrastim [Neupogen] 480 mcg SQ TU 09/09/17 [History] Furosemide [Lasix] 40 mg PO BID 09/09/17 [History] Gabapentin [Neurontin] 200 mg PO BID 09/09/17 [History] Hydroxyzine HCl 20 mg PO BID 09/09/17 [History] Insulin NPH, HUMAN [HumuLIN N] 46 unit SQ QAM 09/09/17 [History] Insulin NPH, HUMAN [HumuLIN N] 50 units SQ QPM 09/09/17 [History] Isosorbide MONOnitrate (24 HR) [Imdur] 15 mg PO DAILY 09/09/17 [History] Omeprazole 20 mg PO BID 09/09/17 [History] Propranolol [Inderal] 20 mg PO BID 09/09/17 [History] Darbepoetin [Aranesp] 500 mcg SQ QWEEK 09/10/17 [History] Levothyroxine Sodium [Levoxyl] 125 mcg PO DAILY 11/06/17 [History] Multivit-Min/FA/Lycopen/Lutein [A Thru Z Select Multivit Tab] 1 tab PO DAILY 03/19 [History] Oxycodone HCl/Acetaminophen [Percocet 5-325 mg Tablet] 1 tab PO Q6H PRN [History] metOLazone [Zaroxolyn] 5 mg PO DAILY 11/06/17 [History] 3 Allergy/AdvReac Type Severity Reaction Status Date / Time lorazepam AdvReac Hallucinati Verified 09/12/17 08:38 ng metformin AdvReac See Verified 07/14/17 11:04 Comments niacin AdvReac Flushing Verified 07/14/17 11:04 nitroglycerin AdvReac See Verified 07/14/17 11:04 Comments All Systems PM: A 10-system review of systems was performed and is negative for pertinent findings except as documented above in the HPI. Review of systems: No chest pain or shortness of breath, other systems out of the 10 reviewed were negative - Constitutional Vitals: Temp Pulse Resp BP Pulse Ox 97.8 F 90 15 102/57 98 11/06/17 14:15 11/06/17 14:15 11/06/17 14:15 11/06/17 14:06 11/06/17 14:15 General appearance: Present: A&O X 3 Exam: Left upper chest port, pale - Head Head exam: Present: atraumatic, normocephalic - Eye Eye exam: Present: PERRL, conjuntiva pink, sclera anicteric Pupils: Present: PERRL - Neck Neck exam general surgery: Present: supple, trachea midline. Absent: lymphadenopathy - Respiratory Respiratory exam: Present: CTAB. Absent: accessory muscle use, rales, rhonchi, wheezes - Cardiovascular Cardiovascular exam: Present: RRR, +S1, +S2. Absent: diastolic murmur, gallop, rubs, systolic murmur - GI/Abdominal GI/Abdominal exam: Present: normal bowel sounds, soft, no peritoneal signs. Absent: distended, tenderness - Extremities Exam Extremities exam: Present: warm, radial pulses palpable and symmetrical. Absent : calf tenderness, cyanotic, pedal edema - Neurological Exam Neurological exam: Present: CN II-XII intact, oriented X3, no focal deficits. Absent: pronater drift, facial droop, speech deficit - Skin Skin exam: Present: dry, intact Internal Med - H&P Results - Labs CBC & Chem 7: 11/06/17 11:32 11/06/17 11:32 Labs: Short CBC 11/06/17 Range/Units 11:32 WBC 13.6 H (4.3-11.1) K/mcL Hgb 5.9 L* (12.9-16.9) g/dL Hct 20.3 L (37.5-50.1) % Plt Count 21 L* (140-400) K/mcL Neutrophils # 12.0 H (1.6-8.9) K/mcL BMP 11/06/17 11:32 Sodium 134 L Potassium 3.7 Chloride 100 Carbon Dioxide 21 L BUN 118 H Creatinine 3.72 H Glucose 271 H Calcium 7.0 L - Impressions ITS Impressions Chest X-Ray 11/06/17 11:32 IMPRESSION: No acute process. D/ / 11/06/2017 12:22:09 Huy Canales MD / [facility] Interpreting Provider: Huy Canales MD
[2017-11-06] MEDS: Acetaminophen 325 MG TABLET PO PRN (15:58)
[2017-11-06] MEDS: Gabapentin 100 MG CAPSULE PO SCH (19:44)
[2017-11-06] MEDS: Insulin LISPRO 300 UNITS/3 ML VIAL SQ SCH (20:07)
[2017-11-06] MEDS: 0.9 % Sodium Chloride 1,000 ML IVC SCH (20:24)
[2017-11-06] MEDS: Pantoprazole 40 MG VIAL IVP SCH (20:25)
[2017-11-07] MEDS: Insulin LISPRO 300 UNITS/3 ML VIAL SQ SCH ×5 (01:47→23:15)
[2017-11-07 04:59] LABS: Hemoglobin 6.8 g/dL (12.9-16.9); Red Cell Distribution Width 29.2 % (11.5-14.5)
[2017-11-07 05:01] LABS: Hematocrit 22.1 % (37.5-50.1); Immature Platelets 10.3 % (1.1-6.1); Mean Corpuscular HGB Conc 30.8 g/dL (31.6-35.5); Mean Corpuscular Hemoglobin 33.7 pg (28.0-33.3); Mean Corpuscular Volume 109.4 fL (83.0-100.0); Red Blood Count 2.02 M/mcL (4.19-5.50)
[2017-11-07 05:12] LABS: Platelet Count 22 K/mcL (140-400)
[2017-11-07 05:19] LABS: Calcium 7.8 mg/dL (8.6-10.3); Potassium 3.5 mEq/L (3.5-5.1)
[2017-11-07] MEDS: Pantoprazole 40 MG VIAL IVP SCH ×2 (07:05→17:28)
[2017-11-07 08:23] LABS: Platelet Count 21 K/mcL (140-400)
[2017-11-07] MEDS ORDERED: *HR* OxyCODONE Oral Soln 5 MG/5 ML UD.LIQ PO PRN (09:47)
--- NOTE | 2017-11-07 09:57 | Internal Med Progress Note ---
<Jeronimo Salcido - Last Filed: 11/07/17 15:36> Date of Encounter: 11/07/17 Time of Encounter: 09:57 - Assessment and plan (1) Blood loss anemia Current Visit: Yes Status: Acute Assessment and plan: -Acute blood lows anemia secondary to possible upper GI bleed exacerbated by thrombocytopenia, has history of chronic anemia due to myelodysplastic syndrome -Transfuse 3 units of red blood cells and 3 units of platelets -Order to transfuse 3 units packed red blood cells and 3 units of platelets -Start IV fluids, NPO, Protonix IV twice a day -Monitor CBC, GI consult -Protonix for GI prophylaxis and sequential compression devices for DVT prophylaxis -NPO after midnight (2) GI bleed Current Visit: Yes Status: Acute Assessment and plan: GI consulted; will scope tomorrow. Qualifiers: GI bleed type/associated pathology: unspecified gastrointestinal hemorrhage type Qualified Code(s): K92.2 - Gastrointestinal hemorrhage, unspecified (3) Chronic kidney disease, stage IV (severe) Current Visit: No Status: Acute Assessment and plan: -Acute on chronic renal failure in the setting of chronic kidney disease is stage IV -Continue IV fluids (4) Diabetes Current Visit: No Status: Acute Assessment and plan: -Insulin sliding scale Qualifiers: Diabetes mellitus type: type 2 Diabetes mellitus complication status: without complication Diabetes mellitus continuous churn buttermaker insulin use: with continuous churn buttermaker use Qualified Code(s): E11.9 - Type 2 diabetes mellitus without complications ; Z79.4 - jail (current) use of insulin; Z79.4 - jail (current) use of insulin; Z79.4 - terminal manager (current) use of insulin; Z79.4 - jail ( current) use of insulin (5) Pancytopenia Current Visit: No Status: Acute (6) Diastolic CHF Current Visit: Yes Status: Acute Assessment and plan: -Hold Lasix, hold propanolol, hold metolazone -Fall precautions -Heart failure chronicity: chronic Qualifiers: Heart failure chronicity: chronic Qualified Code(s): I50.32 - Chronic diastolic (congestive) heart failure (7) Myelodysplastic syndrome Current Visit: Yes Status: Acute - Subjective Interval history: Mr. James is a 76 year old male with a PMHx of C diff in the past, myelodysplastic syndrome, chronic kidney disease stage IV, GI bleed in July , pancytopenia, systolic CHF, diabetes type 2 insulin-dependent, MRSA. Patient presented with severe weakness for the past week. Dark colored stools x 7 days. Hemoglobin was 5.9; dropped from prior level of 8.5. Has chronic thrombocytopenia; platelets were 21. He was discharged last month from this hospital which he was diagnosed with acute colitis. Was extremely weak, not able to stand up. 2 units of pRBCs were ordered as well as 1 unit platelets. Patient seen and examined at [facility] this morning. Patient admits to a significant amount of weakness. Admits to passing some blood in his BM this morning. Denies fever, chills, or abdominal pain. No further complaints at this time. - Constitutional Vitals: Temp Pulse Resp BP Pulse Ox 97.9 F 94 20 125/67 98 11/07/17 07:28 11/07/17 07:28 11/07/17 07:28 11/07/17 07:28 11/07/17 07:28 General appearance: Present: A&O X 3 - Head Head exam: Present: atraumatic, normocephalic - Eye Eye exam: Present: PERRL, conjuntiva pink, sclera anicteric Pupils: Present: PERRL - Neck Neck exam general surgery: Present: supple, trachea midline. Absent: lymphadenopathy - Respiratory Respiratory exam: Present: CTAB. Absent: accessory muscle use, rales, rhonchi, wheezes - Cardiovascular Cardiovascular exam: Present: RRR, +S1, +S2. Absent: diastolic murmur, gallop, rubs, systolic murmur - GI/Abdominal GI/Abdominal exam: Present: normal bowel sounds, soft, no peritoneal signs. Absent: distended, tenderness - Extremities Exam Extremities exam: Present: warm, radial pulses palpable and symmetrical. Absent : calf tenderness, cyanotic, pedal edema - Neurological Exam Neurological exam: Present: CN II-XII intact, oriented X3, no focal deficits. Absent: pronater drift, facial droop, speech deficit - Skin Skin exam: Present: dry, intact Internal Medicine: Result - Labs CBC & Chem 7: 11/07/17 04:40 11/07/17 04:00 Labs: Short CBC 11/07/17 Range/Units 04:40 WBC 6.7 D (4.3-11.1) K/mcL Hgb 6.8 L (12.9-16.9) g/dL Hct 22.1 L (37.5-50.1) % Plt Count 22 L* (140-400) K/mcL BMP 11/07/17 04:00 Sodium 136 Potassium 3.5 Chloride 104 Carbon Dioxide 23 BUN 113 H Creatinine 3.46 H Glucose 170 H Calcium 7.8 L - ABG Interpretation ABG results: PT/INR, D-dimer PT 14.0 Seconds (9.4-12.1) H 11/06/17 11:32 - VTE Documentation of Mechanical Device: Intermittent pneumatic compression device Consult Discharge Plan - Plan [facility]errals: [facility]Primary Care Provider[facility] - 11/12/17 2:30 pm Laverne Mckinney MD [Partnered Physician] - (SENT WEB REQUEST ON 11-07-16 @ [id number]) <Tom Aguirre - Last Filed: 11/07/17 18:55> Date of Encounter: 11/07/17 - Constitutional Vitals: Temp Pulse Resp BP Pulse Ox 98.7 F 94 14 115/60 99 11/07/17 17:00 11/07/17 17:00 11/07/17 17:00 11/07/17 17:00 11/07/17 17:00 Internal Medicine: Result - Labs CBC & Chem 7: 11/07/17 04:40 11/07/17 04:00 Labs: Short CBC 11/07/17 Range/Units 04:40 WBC 6.7 D (4.3-11.1) K/mcL Hgb 6.8 L (12.9-16.9) g/dL Hct 22.1 L (37.5-50.1) % Plt Count 22 L* (140-400) K/mcL BMP 11/07/17 04:00 Sodium 136 Potassium 3.5 Chloride 104 Carbon Dioxide 23 BUN 113 H Creatinine 3.46 H Glucose 170 H Calcium 7.8 L - ABG Interpretation ABG results: PT/INR, D-dimer PT 14.0 Seconds (9.4-12.1) H 11/06/17 11:32 - Attending Attestation I examined this patient and my medical decision-making was reviewed with the Resident Physician. I agree with the documented findings, disposition and treatment plan as described except to the extent set forth below.
[2017-11-07] MEDS: Isosorbide MONOnitrate (24 HR) 30 MG TAB.ER.24H PO SCH (11:19)
[2017-11-07] MEDS: Gabapentin 100 MG CAPSULE PO SCH ×2 (11:19→20:25)
[2017-11-07] MEDS: 0.9 % Sodium Chloride 1,000 ML IVC SCH (11:24)
--- NOTE | 2017-11-07 11:57 | Gastroenterology Consult Note ---
Addendum entered and electronically signed by Minh Hsu CNP 11/07/17 15 :53: Recommend consulting Hematology for assistance in managing refractory thrombocytopenia. Original Note: <Minh Hsu - Last Filed: 11/07/17 11:54> Date of Encounter: 11/07/17 Time of Encounter: 10:35 - Assessment and plan (1) Blood loss anemia Current Visit: Yes Status: Acute Assessment and plan: Hgb 5.9 on admission and 6.8 this AM. PRBC have been ordered, awaiting match from [place]. Continue to monitor CBC. Recommend supportive care. Will hold on EGD at this time d/t thrombocytopenia, as procedure would be too high risk at this time. Continue PPI. (2) Thrombocytopenia Current Visit: Yes Status: Acute Assessment and plan: Likely refractory. (3) Myelodysplastic syndrome Current Visit: Yes Status: Acute - Time Spent With Patient Total time spent is greater than 50% in coordination of care (as documented) at patient's floor/unit and/or counseling patient: GI History of Present Illness - Data of Consult Patient: new to practice Consult date: 11/07/17 Requesting Physician: Tom Aguirre - Consult Narrative Reason for consult: upper GI bleed History of present illness: Mr. James is a 76 year old male with PMHx of MDS, CKD stage IV, gastric ulcers , PUD, GERD, GI bleedin July who presented with c/o weakness and dark stools for the past week. He states the dark stool has worsened in the past 3 days. He denies fever, chills, chest pain, abdominal pain, nausea, vomiting, hematochezia. Hgb on admission was 5.9 and this AM Hgb 6.8. He has chronic thrombocytopenia and platelets are 22 today. PRBC and platelets have been ordered, but will be delayed because he has antibodies (likely secondary to multiple previous transfusions). Procedures: No record NSAIDs: None Anticoagulation: None Past Med Surg Social Fam HX - Past Medical History Medical history: CHF, diabetes, liver disease, renal disease, other Psychiatric history: no psych history - Past Surgical History Surgical History: other - Social History Smoking Status: Former smoker Smokeless Tobacco Status: No Alcohol use: none Drug use: none - Gastrointestinal Gastrointestinal: Present: as per HPI - Constitutional Constitutional: as per HPI - EENT Eyes: as per HPI Ears: Present: as per HPI Nose, mouth and throat: Present: as per HPI - Cardiovascular Cardiovascular ROS: Present: as per HPI - Respiratory Respiratory IM: Present: as per HPI - Genitourinary Genitourinary: Absent: change in color, Urinary frequency - Neurological ROS Neurological GI: Present: as per HPI - Hematologic/Lymphatic Hematologic/Lymphatic pediatric: Present: as per HPI - Musculoskeletal Musculoskeletal ROS GI: Present: as per HPI - Integumentary Integumentary GI: Present: as per HPI - Psychiatric ROS Psychiatric GI: Present: as per HPI - Endocrine Endocrine IM: Present: as per HPI - Constitutional Vitals: Temp Pulse Resp BP Pulse Ox 98.4 F 94 16 119/61 99 11/07/17 11:29 11/07/17 11:29 11/07/17 11:29 11/07/17 11:29 11/07/17 11:29 General appearance: Present: cooperative, A&O X 3, no acute distress, answers questions appropriately - Head Head exam: Present: atraumatic, normocephalic - Eye Eye exam: Present: normal appearance, sclera anicteric - ENT ENT exam: Present: mucous membranes dry - Neck Neck exam general surgery: Present: normal inspection, trachea midline - Respiratory Respiratory exam: Present: CTAB - Cardiovascular Cardiovascular exam: Present: RRR, +S1, +S2 - GI/Abdominal GI/Abdominal exam: Present: soft, no peritoneal signs. Absent: distended, firm , guarding, tenderness - Rectal Rectal exam: Present: deferred - Extremities Exam Extremities exam: Present: warm - Neurological Exam Neurological exam: Present: no focal deficits - Psychiatric Psychiatric exam: Present: normal affect, normal mood - Skin Skin exam: Present: dry, intact, normal color, warm Results - Labs CBC & Chem 7: 11/07/17 04:40 11/07/17 04:00 Labs: Last Result Calcium 7.8 mg/dL (8.6-10.3) L 11/07/17 04:00 Entire Visit Hgb 6.8 g/dL (12.9-16.9) L 11/07/17 04:40 Hct 22.1 % (37.5-50.1) L 11/07/17 04:40 PT 14.0 Seconds (9.4-12.1) H 11/06/17 11:32 - ABG ABG results: PT/INR, D-dimer PT 14.0 Seconds (9.4-12.1) H 11/06/17 11:32 Consult Discharge Plan - Plan [facility]errals: [facility]Primary Care Provider[facility] - 11/12/17 2:30 pm Laverne Mckinney MD [Partnered Physician] - (SENT WEB REQUEST ON 11-07-16 @ [id number]) <Laverne Mckinney - Last Filed: 11/07/17 17:49> Date of Encounter: 11/07/17 Time of Encounter: 17:30 - Time Spent With Patient Total time spent is greater than 50% in coordination of care (as documented) at patient's floor/unit and/or counseling patient: GI History of Present Illness - Data of Consult Requesting Physician: Tom Aguirre - Consult Narrative History of present illness: Mr. James is a 76 year old male - Constitutional Vitals: Temp Pulse Resp BP Pulse Ox 98.7 F 94 14 115/60 99 11/07/17 17:00 11/07/17 17:00 11/07/17 17:00 11/07/17 17:00 11/07/17 17:00 Results - Labs CBC & Chem 7: 11/07/17 04:40 11/07/17 04:00 Labs: Last Result Calcium 7.8 mg/dL (8.6-10.3) L 11/07/17 04:00 Entire Visit Hgb 6.8 g/dL (12.9-16.9) L 11/07/17 04:40 Hct 22.1 % (37.5-50.1) L 11/07/17 04:40 PT 14.0 Seconds (9.4-12.1) H 11/06/17 11:32 - ABG ABG results: PT/INR, D-dimer PT 14.0 Seconds (9.4-12.1) H 11/06/17 11:32 - Attending Attestation I have personally performed a face to face evaluation on this patient. I have reviewed and agree with the care plan. History and Exam by me shows: Patient with severe myelodysplastic syndrome with severe thrombocytopenia now with black stool. Recommendation: Transfusion of blood and platelet as needed will consider EGD once platelets are close to 50.
[2017-11-07] MEDS ORDERED: 0.9 % Sodium Chloride 1,000 ML IVC SCH (13:44)
[2017-11-07] MEDS ORDERED: 0.9 % Sodium Chloride 250 ML ONE (16:13)
[2017-11-08] MEDS: Insulin LISPRO 300 UNITS/3 ML VIAL SQ SCH ×4 (05:26→23:50)
[2017-11-08] MEDS: Pantoprazole 40 MG VIAL IVP SCH ×2 (06:07→18:28)
[2017-11-08 07:36] LABS: Mean Corpuscular Hemoglobin 32.3 pg (28.0-33.3); Red Blood Count 2.6 M/mcL (4.19-5.50)
[2017-11-08 07:38] LABS: Hematocrit 27.3 % (37.5-50.1); Hemoglobin 8.4 g/dL (12.9-16.9); Immature Platelets 8.5 % (1.1-6.1); Mean Corpuscular HGB Conc 30.8 g/dL (31.6-35.5); Mean Platelet Volume 13.3 fL (9.4-12.4); Red Cell Distribution Width 26.7 % (11.5-14.5)
[2017-11-08 07:44] LABS: Calcium 7.6 mg/dL (8.6-10.3); Potassium 3.4 mEq/L (3.5-5.1)
--- NOTE | 2017-11-08 08:37 | Internal Med Progress Note ---
<OmariJeronimo - Last Filed: 11/08/17 17:35> Date of Encounter: 11/08/17 Time of Encounter: 08:35 - Assessment and plan (1) Blood loss anemia Current Visit: Yes Status: Acute Assessment and plan: -Acute blood lows anemia secondary to possible upper GI bleed exacerbated by thrombocytopenia, has history of chronic anemia due to myelodysplastic syndrome -IV fluids, NPO, Protonix IV twice a day -Monitor CBC, GI consult -Since platelets are less than 40,000, GI will not scope at this time -May take in tomorrow for EGD for exploration tomorrow; risks were relayed to patient -NPO after midnight. Patient will make decision after midnight (2) GI bleed Current Visit: Yes Status: Acute Assessment and plan: received platelets today Qualifiers: GI bleed type/associated pathology: unspecified gastrointestinal hemorrhage type Qualified Code(s): K92.2 - Gastrointestinal hemorrhage, unspecified (3) Chronic kidney disease, stage IV (severe) Current Visit: No Status: Acute Assessment and plan: -Acute on chronic renal failure in the setting of chronic kidney disease is stage IV -Continue IV fluids (4) Diabetes Current Visit: No Status: Acute Assessment and plan: -Insulin sliding scale Qualifiers: Diabetes mellitus type: type 2 Diabetes mellitus parts counterman insulin use: with nursing home use Diabetes mellitus complication status: without complication Qualified Code(s): E11.9 - Type 2 diabetes mellitus without complications; Z79.4 - manager intermediate (current) use of insulin; Z79.4 - manager intermediate ( current) use of insulin; Z79.4 - manager intermediate (current) use of insulin; Z79.4 - manager intermediate (current) use of insulin (5) Diastolic CHF Current Visit: Yes Status: Acute Assessment and plan: -Hold Lasix, hold propanolol, hold metolazone -Fall precautions -Heart failure chronicity: chronic Qualifiers: Heart failure chronicity: chronic Qualified Code(s): I50.32 - Chronic diastolic (congestive) heart failure (6) Pancytopenia Current Visit: No Status: Acute (7) Myelodysplastic syndrome Current Visit: Yes Status: Acute - Subjective Interval history: Patient was seen and examined at bedside this morning. - Constitutional Vitals: Temp Pulse Resp BP Pulse Ox 98.4 F 91 15 124/64 97 11/08/17 07:55 11/08/17 07:55 11/08/17 07:55 11/08/17 07:55 11/08/17 07:55 General appearance: Present: A&O X 3 - Head Head exam: Present: atraumatic, normocephalic - Eye Eye exam: Present: PERRL, conjuntiva pink, sclera anicteric Pupils: Present: PERRL - Neck Neck exam general surgery: Present: supple, trachea midline. Absent: lymphadenopathy - Respiratory Respiratory exam: Present: CTAB. Absent: accessory muscle use, rales, rhonchi, wheezes - Cardiovascular Cardiovascular exam: Present: RRR, +S1, +S2. Absent: diastolic murmur, gallop, rubs, systolic murmur - GI/Abdominal GI/Abdominal exam: Present: normal bowel sounds, soft, no peritoneal signs. Absent: distended, tenderness - Extremities Exam Extremities exam: Present: warm, radial pulses palpable and symmetrical. Absent : calf tenderness, cyanotic, pedal edema - Neurological Exam Neurological exam: Present: CN II-XII intact, oriented X3, no focal deficits. Absent: pronater drift, facial droop, speech deficit - Skin Skin exam: Present: dry, intact Internal Medicine: Result - Labs CBC & Chem 7: 11/08/17 15:00 11/08/17 07:00 Labs: Short CBC 11/08/17 Range/Units 07:00 WBC 5.0 (4.3-11.1) K/mcL Hgb 8.4 L D (12.9-16.9) g/dL Hct 27.3 L (37.5-50.1) % Plt Count 23 L* (140-400) K/mcL BMP 11/08/17 07:00 Sodium 136 Potassium 3.4 L Chloride 104 Carbon Dioxide 22 L BUN 89 H Creatinine 2.69 H Glucose 180 H Calcium 7.6 L - ABG Interpretation ABG results: PT/INR, D-dimer PT 14.0 Seconds (9.4-12.1) H 11/06/17 11:32 - VTE Documentation of Mechanical Device: Intermittent pneumatic compression device Consult Discharge Plan - Plan [facility]errals: [facility]Primary Care Provider] - 11/12/17 2:30 pm Laverne Mckinney MD [Partnered Physician] - (SENT WEB REQUEST ON 11-07-16 @ [phone]) <Tom Aguirre - Last Filed: 11/08/17 18:48> Date of Encounter: 11/08/17 - Constitutional Vitals: Temp Pulse Resp BP Pulse Ox 97.5 F L 99 18 142/73 100 11/08/17 16:29 11/08/17 16:29 11/08/17 16:29 11/08/17 16:29 11/08/17 16:29 Internal Medicine: Result - Labs CBC & Chem 7: 11/08/17 15:00 11/08/17 07:00 Labs: Short CBC 11/08/17 11/08/17 Range/Units 07:00 15:00 WBC 5.0 5.1 (4.3-11.1) K/mcL Hgb 8.4 L D 8.5 L (12.9-16.9) g/dL Hct 27.3 L 27.3 L (37.5-50.1) % Plt Count 23 L* 27 L* (140-400) K/mcL BMP 11/08/17 07:00 Sodium 136 Potassium 3.4 L Chloride 104 Carbon Dioxide 22 L BUN 89 H Creatinine 2.69 H Glucose 180 H Calcium 7.6 L - ABG Interpretation ABG results: PT/INR, D-dimer PT 14.0 Seconds (9.4-12.1) H 11/06/17 11:32 - Attending Attestation I examined this patient and my medical decision-making was reviewed with the Resident Physician. I agree with the documented findings, disposition and treatment plan as described except to the extent set forth below.
--- NOTE | 2017-11-08 09:15 | Anesthesia Evaluation PreOp ---
Date of Encounter: 11/08/17 Time of Encounter: 09:12 - Past History Planned Operation: EGD Cardiac History: CHF (EF per H&P 45-50%), HTN, Hyperlipidemia CIRCULATION ANALYST History: Other (Diabetic Peripheral Neuropathy) Other Medical History: Hepatic (Cirrhosis), Renal (Stage IV CRD), Diabetes Type II (Isulin Dependent), Thyroid (Hypothyroid), Other (Pancytopenia, Mylodysplastic Syndrome, Gout, Gastric Ulcers, PUD, Prostate CA) Anesthesia History: Past Anesthesia (Left Chest Port, Prostate seed,) Alcohol Use: none Drug use: none Medications and Allergies Atorvastatin Calcium [Lipitor] 10 mg PO DAILY 09/09/17 [History] Cholecalciferol (D-3) [Vitamin D] 1,000 unit PO DAILY 09/09/17 [History] Filgrastim [Neupogen] 480 mcg SQ TU 09/09/17 [History] Furosemide [Lasix] 40 mg PO BID 09/09/17 [History] Gabapentin [Neurontin] 200 mg PO BID 09/09/17 [History] Hydroxyzine HCl 20 mg PO BID 09/09/17 [History] Insulin NPH, HUMAN [HumuLIN N] 46 unit SQ QAM 09/09/17 [History] Insulin NPH, HUMAN [HumuLIN N] 50 units SQ QPM 09/09/17 [History] Isosorbide MONOnitrate (24 HR) [Imdur] 15 mg PO DAILY 09/09/17 [History] Omeprazole 20 mg PO BID 09/09/17 [History] Propranolol [Inderal] 20 mg PO BID 09/09/17 [History] Darbepoetin [Aranesp] 500 mcg SQ QWEEK 09/10/17 [History] Levothyroxine Sodium [Levoxyl] 125 mcg PO DAILY 11/06/17 [History] Multivit-Min/FA/Lycopen/Lutein [A Thru Z Select Multivit Tab] 1 tab PO DAILY 03/19 [History] Oxycodone HCl/Acetaminophen [Percocet 5-325 mg Tablet] 1 tab PO Q6H PRN [History] metOLazone [Zaroxolyn] 5 mg PO DAILY 11/06/17 [History] 3 Allergy/AdvReac Type Severity Reaction Status Date / Time lorazepam AdvReac Hallucinati Verified 09/12/17 08:38 ng metformin AdvReac See Verified 07/14/17 11:04 Comments niacin AdvReac Flushing Verified 07/14/17 11:04 nitroglycerin AdvReac See Verified 07/14/17 11:04 Comments - Meds/Allergy Pre-op Review Medications Reviewed: Yes Allergies Reviewed: Yes Beta Blockers on Current Med List: No Anesthesia Results - Labs 11/08/17 07:00 11/08/17 07:00
[2017-11-08] MEDS ORDERED: 0.9 % Sodium Chloride 250 ML ONE (10:43)
[2017-11-08] MEDS: Isosorbide MONOnitrate (24 HR) 30 MG TAB.ER.24H PO SCH (10:53)
[2017-11-08] MEDS: *HR* HYDROcodone/Acet 5/325 mg TABLET PO PRN (11:18)
[2017-11-08] MEDS: OXYCODONE Oral CONC 10 MG/0.5 ML ORAL.SYG SL PRN ×2 (13:45→21:01)
[2017-11-08 15:23] LABS: Hemoglobin 8.5 g/dL (12.9-16.9)
[2017-11-08] MEDS ORDERED: Furosemide 20 MG/2 ML VIAL IVP ONE (15:23)
[2017-11-08 15:24] LABS: Hematocrit 27.3 % (37.5-50.1); Immature Platelets 7.5 % (1.1-6.1); Mean Corpuscular HGB Conc 31.1 g/dL (31.6-35.5); Mean Corpuscular Hemoglobin 32.6 pg (28.0-33.3); Mean Corpuscular Volume 104.6 fL (83.0-100.0); Mean Platelet Volume 12.9 fL (9.4-12.4); Red Blood Count 2.61 M/mcL (4.19-5.50); Red Cell Distribution Width 26.5 % (11.5-14.5)
[2017-11-08] MEDS ORDERED: *HR* LORazepam 2 MG/ML VIAL IVP ONE (18:27)
[2017-11-08] MEDS: Gabapentin 100 MG CAPSULE PO SCH (20:58)
[2017-11-09] MEDS: Insulin LISPRO 300 UNITS/3 ML VIAL SQ SCH ×4 (06:22→21:02)
[2017-11-09] MEDS: Pantoprazole 40 MG VIAL IVP SCH ×2 (06:23→17:26)
--- NOTE | 2017-11-09 07:28 | Internal Med Progress Note ---
Date of Encounter: 11/09/17 Time of Encounter: 07:26 - Assessment and plan (1) Blood loss anemia Current Visit: Yes Status: Acute Assessment and plan: We will check a CBC today, looking at both hemoglobin and platelet count. It should be noted that again was given a multiple platelet packs, he has not responded at all. His prognosis is extremely poor, in fact yesterday and mentioned no treatment at this time viscerally an option for him with hospice care. (2) GI bleed Current Visit: Yes Status: Acute Assessment and plan: Thought to be upper, the family is well aware that this may be a normal upper endoscopy at that case then we will most likely be done. Qualifiers: GI bleed type/associated pathology: unspecified gastrointestinal hemorrhage type Qualified Code(s): K92.2 - Gastrointestinal hemorrhage, unspecified (3) Myelodysplastic syndrome Current Visit: Yes Status: Chronic (4) Thrombocytopenia Current Visit: Yes Status: Chronic (5) Chronic kidney disease, stage IV (severe) Current Visit: No Status: Chronic (6) Diabetes Current Visit: No Status: Chronic Qualifiers: Diabetes mellitus type: type 2 Diabetes mellitus correction insulin use: with drying tumbler operator use Diabetes mellitus complication status: without complication Qualified Code(s): E11.9 - Type 2 diabetes mellitus without complications; Z79.4 - assisted (current) use of insulin; Z79.4 - assisted ( current) use of insulin; Z79.4 - senior packaging engineer (current) use of insulin; Z79.4 - assisted (current) use of insulin - Subjective Interval history: He is awake and alert, able to sit up without difficulty. Admits no further bleeding. No abdominal pain. He has had a very uneventful night. Both he and his with the daughter about decided to pursue upper endoscopy as spent some time in discussing the risks and benefits of that today as I did yesterday. Risks to include , he has signed consent. - Constitutional Vitals: Temp Pulse Resp BP Pulse Ox 98.5 F 97 16 126/62 96 11/09/17 04:15 11/09/17 04:15 11/09/17 04:15 11/09/17 04:15 11/09/17 04:15 General appearance: Present: A&O X 3, pleasant, no acute distress, answers questions appropriately - Neck Neck exam general surgery: Present: supple, trachea midline - Respiratory Respiratory exam: Present: CTAB. Absent: rhonchi, wheezes, tachypnea - Cardiovascular Cardiovascular exam: Present: RRR, +S1, +S2. Absent: JVD, tachycardia - GI/Abdominal GI/Abdominal exam: Present: normal bowel sounds, soft, no peritoneal signs. Absent: splenomegaly, tenderness - Extremities Exam Extremities exam: Present: warm. Absent: pedal edema Internal Medicine: Result - Labs CBC & Chem 7: 11/08/17 15:00 11/08/17 07:00 Labs: Short CBC 11/08/17 11/08/17 Range/Units 07:00 15:00 WBC 5.0 5.1 (4.3-11.1) K/mcL Hgb 8.4 L D 8.5 L (12.9-16.9) g/dL Hct 27.3 L 27.3 L (37.5-50.1) % Plt Count 23 L* 27 L* (140-400) K/mcL BMP 11/08/17 07:00 Sodium 136 Potassium 3.4 L Chloride 104 Carbon Dioxide 22 L BUN 89 H Creatinine 2.69 H Glucose 180 H Calcium 7.6 L - ABG Interpretation ABG results: PT/INR, D-dimer PT 14.0 Seconds (9.4-12.1) H 11/06/17 11:32 - VTE Documentation of Mechanical Device: Intermittent pneumatic compression device Consult Discharge Plan - Plan Referrals: [facility] [Primary Care Provider] - 11/12/17 2:30 pm Laverne Mckinney MD [Partnered Physician] - (SENT WEB REQUEST ON 11-07-16 @ [id number])
[2017-11-09 09:43] LABS: Hemoglobin 8.1 g/dL (12.9-16.9); Monocytes # 0.5 K/mcL (0.0-1.3); Red Cell Distribution Width 26.5 % (11.5-14.5)
[2017-11-09 09:45] LABS: Hematocrit 26.1 % (37.5-50.1); Immature Platelets 8.9 % (1.1-6.1); Mean Corpuscular Hemoglobin 32.8 pg (28.0-33.3); Mean Corpuscular Volume 105.7 fL (83.0-100.0); Nucleated Red Blood Cells 5.7 /100 WBC (0); Red Blood Count 2.47 M/mcL (4.19-5.50)
[2017-11-09 09:58] LABS: Neutrophils # 1.9 K/mcL (1.6-8.9)
[2017-11-09 10:00] LABS: Platelet Count 21 K/mcL (140-400)
[2017-11-09 10:28] LABS: Anisocytosis 2+ (Not Present); Macrocytosis Present (Not Present)
[2017-11-09 10:29] LABS: Ovalocytes 1+ (Not Present); Platelet Estimate Marked Decrease (Normal); Polychromasia 1+ (Not Present); Spherocytes 1+ (Not Present); Stomatocytes 1+ (Not Present)
[2017-11-09] MEDS ORDERED: *HR* Midazolam HCl 5 MG/5 ML VIAL IVP ONE ×2 (11:26→11:46)
[2017-11-09] MEDS ORDERED: *HR* FentaNYL (PF) 100 MCG/2 ML VIAL ONE (11:26)
[2017-11-09] MEDS ORDERED: 0.9 % Sodium Chloride 1,000 ML IVC SCH (11:45)
[2017-11-09] MEDS ORDERED: Simethicone 40 MG/0.6 ML MLS IR ONE (11:46)
[2017-11-09] MEDS ORDERED: Tetracaine/Benzocaine/Butamben 200MG/SPRAY (100SPY/BOT) MM ONE (11:46)
[2017-11-09] MEDS ORDERED: *HR* FentaNYL (PF) 100 MCG/2 ML VIAL IVP ONE (11:46)
--- NOTE | 2017-11-09 11:48 | Pre-Sedation Evaluation ---
Pre-sedation evaluation - Pre-sedation checklist Date of procedure: 11/09/17 Procedure: EGD Recent Vitals: Last Vital Signs Temp 98 F 11/09/17 11:34 Pulse 96 11/09/17 11:34 Resp 16 11/09/17 11:34 BP 127/69 11/09/17 11:34 Pulse Ox 94 11/09/17 11:34 H&P (including ROS) documented in medical record: Yes Previous reaction to sedatives/anesthetics: No Dietary Status: NPO after Midnight Airway Assessment: Patient can open mouth completely, TMJ function normal Dentition: No loose teeth or bridges Possible difficult airway: No ASA Classification *see protocol: CLASS III-Severe systemic disease
[2017-11-09] MEDS: Isosorbide MONOnitrate (24 HR) 30 MG TAB.ER.24H PO SCH (14:36)
[2017-11-09 19:28] LABS: Basophils % 1.3 %; Eosinophils % 0.3 %; Mean Corpuscular Hemoglobin 32.3 pg (28.0-33.3); Red Blood Count 2.48 M/mcL (4.19-5.50); Segmented Neutrophils % 58.8 %
[2017-11-09 19:29] LABS: Hematocrit 26.4 % (37.5-50.1); Immature Granulocytes % 5.5 % (0-4); Immature Platelets 8.9 % (1.1-6.1); Lymphocytes # 0.6 K/mcL (0.6-4.6); Lymphocytes % 19.3 %; Mean Corpuscular HGB Conc 30.3 g/dL (31.6-35.5); Mean Corpuscular Volume 106.5 fL (83.0-100.0); Mean Platelet Volume 11.2 fL (9.4-12.4); Monocytes # 0.5 K/mcL (0.0-1.3); Monocytes % 14.8 %; Neutrophils # 1.8 K/mcL (1.6-8.9); Nucleated Red Blood Cells 4.5 /100 WBC (0); Red Cell Distribution Width 26.3 % (11.5-14.5)
[2017-11-09] MEDS ORDERED: PEG/Electrolytes/Ascorbic Acid 1 EACH POWD.PACK PO ONE (19:32)
[2017-11-09] MEDS: Gabapentin 100 MG CAPSULE PO SCH (19:50)
[2017-11-09] MEDS: *HR* HYDROcodone/Acet 5/325 mg TABLET PO PRN (19:50)
[2017-11-09 19:54] LABS: Platelet Count 23 K/mcL (140-400)
[2017-11-09 19:55] LABS: Anisocytosis 1+ (Not Present); Macrocytosis Present (Not Present); Platelet Estimate Marked Decrease (Normal); Toxic Granulation Present (Not Present)
[2017-11-09] MEDS: OXYCODONE Oral CONC 10 MG/0.5 ML ORAL.SYG SL PRN (22:57)
[2017-11-10 00:01] LABS: Eosinophils % 0.3 %; Hematocrit 26.4 % (37.5-50.1); Hemoglobin 8.1 g/dL (12.9-16.9); Mean Corpuscular HGB Conc 30.7 g/dL (31.6-35.5); Red Cell Distribution Width 26.4 % (11.5-14.5)
[2017-11-10 00:03] LABS: Immature Granulocytes % 7.3 % (0-4); Immature Platelets 8.9 % (1.1-6.1); Lymphocytes % 19.6 %; Mean Corpuscular Hemoglobin 32.8 pg (28.0-33.3); Mean Corpuscular Volume 106.9 fL (83.0-100.0); Monocytes # 0.5 K/mcL (0.0-1.3); Monocytes % 13.1 %; Nucleated Red Blood Cells 5.5 /100 WBC (0); Red Blood Count 2.47 M/mcL (4.19-5.50); Segmented Neutrophils % 58.7 %
[2017-11-10 00:15] LABS: Lymphocytes # 0.7 K/mcL (0.6-4.6); Neutrophils # 2.2 K/mcL (1.6-8.9)
[2017-11-10 00:16] LABS: Platelet Count 23 K/mcL (140-400)
[2017-11-10 00:33] LABS: Anisocytosis 1+ (Not Present); Platelet Estimate Decreased (Normal); Poikilocytosis 1+ (Not Present)
[2017-11-10 04:32] LABS: Eosinophils % 0.3 %; Hemoglobin 7.5 g/dL (12.9-16.9); Immature Granulocytes % 7.2 % (0-4); Lymphocytes # 0.8 K/mcL (0.6-4.6); Lymphocytes % 24.8 %; Mean Corpuscular HGB Conc 31.3 g/dL (31.6-35.5); Mean Corpuscular Hemoglobin 33.3 pg (28.0-33.3); Mean Corpuscular Volume 106.7 fL (83.0-100.0); Mean Platelet Volume 11.3 fL (9.4-12.4); Monocytes # 0.5 K/mcL (0.0-1.3); Neutrophils # 1.6 K/mcL (1.6-8.9); Nucleated Red Blood Cells 4.9 /100 WBC (0); Red Blood Count 2.25 M/mcL (4.19-5.50); Red Cell Distribution Width 26.2 % (11.5-14.5); Segmented Neutrophils % 50.7 %
[2017-11-10 04:37] LABS: Platelet Count 17 K/mcL (140-400)
[2017-11-10 04:54] LABS: Anisocytosis 1+ (Not Present); Poikilocytosis 1+ (Not Present); Polychromasia 1+ (Not Present)
[2017-11-10 04:55] LABS: Platelet Estimate Decreased (Normal); Toxic Granulation Present (Not Present)
[2017-11-10] MEDS: Pantoprazole 40 MG VIAL IVP SCH ×2 (05:59→17:30)
--- NOTE | 2017-11-10 07:30 | Internal Med Progress Note ---
Date of Encounter: 11/10/17 Time of Encounter: 07:27 - Assessment and plan (1) Blood loss anemia Current Visit: Yes Status: Acute Assessment and plan: This has worsened again due to either colonic bleeding or occult small bowel bleeding. We will pursue colonoscopy this morning, we will also make sure he gets a platelet transfusion and 2 units of blood. If we find nothing today, he could be discharged potentially within the next 24 hours. (2) GI bleed Current Visit: Yes Status: Acute Assessment and plan: He did have some stomach AVMs yesterday that I cauterized, I suspect there are either further AVMs, and/or touch bleeding and/or diverticular bleeding going on as well. Qualifiers: GI bleed type/associated pathology: unspecified gastrointestinal hemorrhage type Qualified Code(s): K92.2 - Gastrointestinal hemorrhage, unspecified (3) Myelodysplastic syndrome Current Visit: Yes Status: Chronic (4) Thrombocytopenia Current Visit: Yes Status: Chronic (5) Chronic kidney disease, stage IV (severe) Current Visit: No Status: Chronic (6) Diabetes Current Visit: No Status: Chronic Qualifiers: Diabetes mellitus type: type 2 Diabetes mellitus termite inspector insulin use: with termite inspector use Diabetes mellitus complication status: without complication Qualified Code(s): E11.9 - Type 2 diabetes mellitus without complications; Z79.4 - longterm (current) use of insulin; Z79.4 - longterm ( current) use of insulin; Z79.4 - terminal superintendent (current) use of insulin; Z79.4 - terminal superintendent (current) use of insulin (7) Angiodysplasia of stomach Current Visit: Yes Status: Acute Assessment and plan: Status post cautery - Subjective Interval history: He is awake and alert, able to sit up without difficulty. She had some more bright red rectal bleeding last p.m. around 7:00. With minimal tachycardia. His hemoglobin is dropped down to 7.5 and a splenic count is about 17,000. He admits overall feeling quite well, other than some mild left lower quadrant pain. I discussed yesterday's EGD findings, and after further discussion with both he and the have decided to pursue colonoscopy this morning. Again risks and benefits being discussed to include and major bleeding. - Constitutional Vitals: Temp Pulse Resp BP Pulse Ox 98.3 F 102 18 116/63 97 11/10/17 05:27 11/10/17 05:27 11/10/17 05:27 11/10/17 05:27 11/10/17 05:27 General appearance: Present: A&O X 3, pleasant, no acute distress, answers questions appropriately - Eye Eye exam: Present: conjuntiva pink, sclera anicteric - Respiratory Respiratory exam: Present: CTAB. Absent: tachypnea - GI/Abdominal GI/Abdominal exam: Present: normal bowel sounds, soft, no peritoneal signs. Absent: tenderness - Extremities Exam Extremities exam: Present: normal inspection, warm. Absent: tenderness Internal Medicine: Result - Labs CBC & Chem 7: 11/10/17 04:00 11/08/17 07:00 Labs: Short CBC 11/09/17 11/09/17 11/10/17 Range/Units 08:05 19:03 00:00 WBC 3.4 L 3.1 L 3.8 L (4.3-11.1) K/mcL Hgb 8.1 L 8.0 L 8.1 L (12.9-16.9) g/dL Hct 26.1 L 26.4 L 26.4 L (37.5-50.1) % Plt Count 21 L* 23 L* 23 L* (140-400) K/mcL Neutrophils # 1.9 1.8 2.2 (1.6-8.9) K/mcL 11/10/17 Range/Units 04:00 WBC 3.1 L (4.3-11.1) K/mcL Hgb 7.5 L (12.9-16.9) g/dL Hct 24.0 L (37.5-50.1) % Plt Count 17 L* (140-400) K/mcL Neutrophils # 1.6 (1.6-8.9) K/mcL - ABG Interpretation ABG results: PT/INR, D-dimer PT 14.0 Seconds (9.4-12.1) H 11/06/17 11:32 - VTE Documentation of Mechanical Device: Intermittent pneumatic compression device Consult Discharge Plan - Plan [facility]errals: [facility] [Primary Care Provider] - 11/12/17 2:30 pm Laverne Mckinney MD [Partnered Physician] - (SENT WEB REQUEST ON 11-07-16 @ [phone])
[2017-11-10] MEDS: 0.9 % Sodium Chloride 1,000 ML IVC SCH (07:48)
[2017-11-10] MEDS: Isosorbide MONOnitrate (24 HR) 30 MG TAB.ER.24H PO SCH (08:09)
[2017-11-10] MEDS: Insulin LISPRO 300 UNITS/3 ML VIAL SQ SCH ×4 (08:27→20:40)
[2017-11-10] MEDS ORDERED: *HR* Midazolam HCl 5 MG/5 ML VIAL IVP ONE ×2 (08:43→10:31)
[2017-11-10] MEDS ORDERED: *HR* FentaNYL (PF) 100 MCG/2 ML VIAL ONE (08:44)
[2017-11-10] MEDS ORDERED: 0.9 % Sodium Chloride 500 ML ONE (08:44)
[2017-11-10] MEDS ORDERED: 0.9 % Sodium Chloride 1,000 ML IVC SCH (10:30)
[2017-11-10] MEDS ORDERED: *HR* FentaNYL (PF) 100 MCG/2 ML VIAL IVP ONE (10:31)
[2017-11-10] MEDS ORDERED: Simethicone 40 MG/0.6 ML MLS IR ONE (10:31)
--- NOTE | 2017-11-10 10:32 | Pre-Sedation Evaluation ---
Pre-sedation evaluation - Pre-sedation checklist Date of procedure: 11/10/17 Procedure: colonoscopy Recent Vitals: Last Vital Signs Temp 98.2 F 11/10/17 10:25 Pulse 99 11/10/17 10:25 Resp 16 11/10/17 10:25 BP 123/67 11/10/17 10:25 Pulse Ox 95 11/10/17 10:25 H&P (including ROS) documented in medical record: Yes Previous reaction to sedatives/anesthetics: No Dietary Status: NPO after Midnight Airway Assessment: Patient can open mouth completely, TMJ function normal Dentition: No loose teeth or bridges Possible difficult airway: No ASA Classification *see protocol: CLASS III-Severe systemic disease
--- NOTE | 2017-11-10 14:39 | Event Note ---
Date of Encounter: 11/10/17 Time of Encounter: 11:00 Colonoscopy was incomplete to the proximal Sigmoid Colon: 1. Touch bleeding throughout 2. May have distal Colitis.. biopsies pending; Stool for C. Diff sent. He has had this last year.
[2017-11-10] MEDS: *HR* HYDROcodone/Acet 5/325 mg TABLET PO PRN (20:33)
[2017-11-10] MEDS: Gabapentin 100 MG CAPSULE PO SCH (20:33)
[2017-11-10] MEDS: OXYCODONE Oral CONC 10 MG/0.5 ML ORAL.SYG SL PRN (21:58)
[2017-11-11 03:53] LABS: Eosinophils % 0.8 %; Hemoglobin 8.7 g/dL (12.9-16.9)
[2017-11-11 03:55] LABS: Basophils % 0.8 %; Immature Granulocytes % 9.2 % (0-4); Immature Platelets 7.2 % (1.1-6.1); Lymphocytes # 0.6 K/mcL (0.6-4.6); Lymphocytes % 25.1 %; Mean Corpuscular HGB Conc 31.1 g/dL (31.6-35.5); Mean Corpuscular Hemoglobin 31.8 pg (28.0-33.3); Mean Corpuscular Volume 102.2 fL (83.0-100.0); Monocytes # 0.4 K/mcL (0.0-1.3); Monocytes % 14.3 %; Neutrophils # 1.3 K/mcL (1.6-8.9); Nucleated Red Blood Cells 6.4 /100 WBC (0); Red Blood Count 2.74 M/mcL (4.19-5.50); Red Cell Distribution Width 25.8 % (11.5-14.5); Segmented Neutrophils % 49.8 %
[2017-11-11 04:09] LABS: Platelet Count 21 K/mcL (140-400)
[2017-11-11 04:12] LABS: Calcium 8.1 mg/dL (8.6-10.3)
[2017-11-11 04:35] LABS: Platelet Estimate Marked Decrease (Normal)
[2017-11-11 04:36] LABS: Anisocytosis 1+ (Not Present)
[2017-11-11] MEDS: Pantoprazole 40 MG VIAL IVP SCH ×2 (05:53→17:22)
[2017-11-11] MEDS: Isosorbide MONOnitrate (24 HR) 30 MG TAB.ER.24H PO SCH (07:51)
[2017-11-11] MEDS: *HR* HYDROcodone/Acet 5/325 mg TABLET PO PRN ×2 (07:51→17:35)
[2017-11-11] MEDS: Insulin LISPRO 300 UNITS/3 ML VIAL SQ SCH ×4 (07:53→21:02)
--- NOTE | 2017-11-11 08:48 | Internal Med Progress Note ---
<Mike Zamora - Last Filed: 11/11/17 08:43> Date of Encounter: 11/11/17 Time of Encounter: 08:43 - Assessment and plan (1) Blood loss anemia Current Visit: Yes Status: Acute Assessment and plan: Secondary to GI bleed in setting of MDS, thrombocytopenia Underwent EGD and colonoscopy over the weekend. EGD showed multiple AVMs which were cauterized. Colonoscopy showed sigmoid erosions and inflammation. Biopsies taken and are pending. Has received a total of 6 packed red blood cells and 4 units of platelets. hgb is a 0.7 this morning. Patient continues to have bloody bowel movements. plan: Continue monitoring hemoglobin. Await colonoscopy biopsies, C. difficile PCR. (2) GI bleed Current Visit: Yes Status: Acute Assessment and plan: As noted the patient had EGD and colonoscopy with weekend. During colonoscopy visualization was not able to be obtained past ascending colon. She can continue to have bloody bowel movements Patient will need repeat colonoscopy for visualization of the entire colon. GI was consulted initially on admission and held off on any procedures due to thrombocytopenia and recommended hematology oncology consult. Consult hematology oncology for refractory thrombocytopenia. Qualifiers: GI bleed type/associated pathology: unspecified gastrointestinal hemorrhage type Qualified Code(s): K92.2 - Gastrointestinal hemorrhage, unspecified (3) Thrombocytopenia Current Visit: Yes Status: Chronic Assessment and plan: Plan as above. (4) Myelodysplastic syndrome Current Visit: Yes Status: Chronic Assessment and plan: Patient has a history of MDS and receives transfusions every 2 weeks at the OR. Reports his baseline platelets are around 21. He receives Neupogen for neutropenia as well. ANC 1300. Platelets 21,000 Plan: Consultation hematology oncology for further recommendations on refractory thrombocytopenia. (5) Chronic kidney disease, stage IV (severe) Current Visit: Yes Status: Chronic Assessment and plan: Serum creatinine back to baseline. Total urine output 900 mL yesterday. Continue to monitor. (6) Diabetes Current Visit: Yes Status: Chronic Assessment and plan: Continue diabetic diet. Continue insulin regimen and sliding scale. Qualifiers: Diabetes mellitus type: type 2 Diabetes mellitus terminal gauger insulin use: with mcc use Diabetes mellitus complication status: without complication Qualified Code(s): E11.9 - Type 2 diabetes mellitus without complications; Z79.4 - terminal gauger (current) use of insulin; Z79.4 - terminal gauger ( current) use of insulin; Z79.4 - FPC (current) use of insulin; Z79.4 - terminal gauger (current) use of insulin - Subjective Interval history: Patient reports overnight he had no issues. He reports having mild left lower quadrant pain. This has been there since admission. He continues to have bloody bowel movements. Patient denies chest pain, shortness of breath, lower extremity swelling, worsening pain. Over the weekend patient had EGD which showed grade a esophagitis and antral ectasias which were treated with APC. Also colonoscopy completed yesterday showed congested mucosa in the sigmoid colon which was biopsied, multiple sigmoid erosions. Biopsies were taken and are pending. - Constitutional Vitals: Temp Pulse Resp BP Pulse Ox 98.5 F 97 18 125/72 96 11/11/17 07:22 11/11/17 07:22 11/11/17 07:22 11/11/17 07:22 11/11/17 07:22 General appearance: Present: A&O X 3, pleasant, no acute distress, answers questions appropriately - Other Additional findings: General: Pleasant without distress Heart: Regular rate and rhythm with no murmur Lungs: Clear to auscultation bilaterally Abdomen: Soft mild distention, mild tenderness to left lower quadrant with palpation. Positive bowel sounds. Skin: warm and dry. The left chest port Extremities: Absent pedal edema, Vascular: Pedal and radial pulses 2 out of 4 Internal Medicine: Result - Labs CBC & Chem 7: 11/11/17 03:35 11/11/17 03:35 Labs: Short CBC 11/11/17 Range/Units 03:35 WBC 2.5 L (4.3-11.1) K/mcL Hgb 8.7 L (12.9-16.9) g/dL Hct 28.0 L (37.5-50.1) % Plt Count 21 L* (140-400) K/mcL Neutrophils # 1.3 L (1.6-8.9) K/mcL BMP 11/11/17 03:35 Sodium 136 Potassium 4.0 Chloride 106 Carbon Dioxide 23 BUN 60 H Creatinine 2.32 H Glucose 170 H Calcium 8.1 L - ABG Interpretation ABG results: PT/INR, D-dimer PT 14.0 Seconds (9.4-12.1) H 11/06/17 11:32 - VTE Documentation of Mechanical Device: Intermittent pneumatic compression device Consult Discharge Plan - Plan [facility]errals: [facility] Care Provider[facility] - 11/12/17 2:30 pm Laverne Mckinney MD [Partnered Physician] - (SENT WEB REQUEST ON 11-07-16 @ [phone]) <Miah Zuluaga H - Last Filed: 11/11/17 10:06> Date of Encounter: 11/11/17 - Assessment and plan (1) Blood loss anemia Current Visit: Yes Status: Acute (2) GI bleed Current Visit: Yes Status: Acute Qualifiers: GI bleed type/associated pathology: unspecified gastrointestinal hemorrhage type Qualified Code(s): K92.2 - Gastrointestinal hemorrhage, unspecified (3) Myelodysplastic syndrome Current Visit: Yes Status: Chronic (4) Chronic kidney disease, stage IV (severe) Current Visit: Yes Status: Chronic (5) Diabetes Current Visit: Yes Status: Chronic Qualifiers: Diabetes mellitus type: type 2 Diabetes mellitus mcc insulin use: with terminal gauger use Diabetes mellitus complication status: without complication Qualified Code(s): E11.9 - Type 2 diabetes mellitus without complications; Z79.4 - FPC (current) use of insulin; Z79.4 - FPC ( current) use of insulin; Z79.4 - FPC (current) use of insulin; Z79.4 - FPC (current) use of insulin (6) Pancytopenia Current Visit: No Status: Acute (7) Diastolic CHF Current Visit: Yes Status: Acute Qualifiers: Heart failure chronicity: chronic Qualified Code(s): I50.32 - Chronic diastolic (congestive) heart failure (8) Hypoglycemia Current Visit: Yes Status: Acute - Constitutional Vitals: Temp Pulse Resp BP Pulse Ox 98.5 F 97 18 125/72 96 11/11/17 07:22 11/11/17 07:22 11/11/17 07:22 11/11/17 07:22 11/11/17 07:22 Internal Medicine: Result - Labs CBC & Chem 7: 11/11/17 03:35 11/11/17 03:35 Labs: Short CBC 11/11/17 Range/Units 03:35 WBC 2.5 L (4.3-11.1) K/mcL Hgb 8.7 L (12.9-16.9) g/dL Hct 28.0 L (37.5-50.1) % Plt Count 21 L* (140-400) K/mcL Neutrophils # 1.3 L (1.6-8.9) K/mcL BMP 11/11/17 03:35 Sodium 136 Potassium 4.0 Chloride 106 Carbon Dioxide 23 BUN 60 H Creatinine 2.32 H Glucose 170 H Calcium 8.1 L - ABG Interpretation ABG results: PT/INR, D-dimer PT 14.0 Seconds (9.4-12.1) H 11/06/17 11:32 - Attending Attestation Colonoscopy shows possible colitis, could not be completed Start ciprofloxacin and Flagyl IV until GI panel report is back GI consulted, recommendations appreciated to consider new colonoscopy I examined this patient and my medical decision-making was reviewed with the Resident Physician. I agree with the documented findings, disposition and treatment plan as described except to the extent set forth below.
--- NOTE | 2017-11-11 10:36 | Oncology Inp Consult Note ---
<GurjitsahilgabyRhona - Last Filed: 11/11/17 16:50> Date of Encounter: 11/11/17 - Data of Consult Requesting Physician: Tom Aguirre Primary Care Provider: [facility] - Consult Narrative History of present illness: I examined this patient and my medical decision-making was reviewed with the Advanced Practice Nurse, Amanda Khan. I agree with the documented findings, disposition and treatment plan as described except to the extent set forth below. Medications and Allergies Atorvastatin Calcium [Lipitor] 10 mg PO DAILY 09/09/17 [History] Cholecalciferol (D-3) [Vitamin D] 1,000 unit PO DAILY 09/09/17 [History] Filgrastim [Neupogen] 480 mcg SQ TU 09/09/17 [History] Furosemide [Lasix] 40 mg PO BID 09/09/17 [History] Gabapentin [Neurontin] 200 mg PO BID 09/09/17 [History] Hydroxyzine HCl 20 mg PO BID 09/09/17 [History] Insulin NPH, HUMAN [HumuLIN N] 46 unit SQ QAM 09/09/17 [History] Insulin NPH, HUMAN [HumuLIN N] 50 units SQ QPM 09/09/17 [History] Isosorbide MONOnitrate (24 HR) [Imdur] 15 mg PO DAILY 09/09/17 [History] Omeprazole 20 mg PO BID 09/09/17 [History] Propranolol [Inderal] 20 mg PO BID 09/09/17 [History] Darbepoetin [Aranesp] 500 mcg SQ QWEEK 09/10/17 [History] Levothyroxine Sodium [Levoxyl] 125 mcg PO DAILY 11/06/17 [History] Multivit-Min/FA/Lycopen/Lutein [A Thru Z Select Multivit Tab] 1 tab PO DAILY 03/19 [History] Oxycodone HCl/Acetaminophen [Percocet 5-325 mg Tablet] 1 tab PO Q6H PRN [History] metOLazone [Zaroxolyn] 5 mg PO DAILY 11/06/17 [History] 3 Allergy/AdvReac Type Severity Reaction Status Date / Time lorazepam AdvReac Hallucinati Verified 09/12/17 08:38 ng metformin AdvReac See Verified 07/14/17 11:04 Comments niacin AdvReac Flushing Verified 07/14/17 11:04 nitroglycerin AdvReac See Verified 07/14/17 11:04 Comments Oncology - Exam - Constitutional Vitals: Temp Pulse Resp BP Pulse Ox 98.2 F 97 16 135/69 99 11/11/17 16:16 11/11/17 16:16 11/11/17 16:16 11/11/17 16:16 11/11/17 16:16 Oncology - Results Labs: Short CBC 11/11/17 11/11/17 Range/Units 03:35 11:56 WBC 2.5 L 2.7 L (4.3-11.1) K/mcL Hgb 8.7 L 8.1 L (12.9-16.9) g/dL Hct 28.0 L 27.0 L (37.5-50.1) % Plt Count 21 L* 22 L* (140-400) K/mcL Neutrophils # 1.3 L 1.2 L (1.6-8.9) K/mcL BMP 11/11/17 03:35 Sodium 136 Potassium 4.0 Chloride 106 Carbon Dioxide 23 BUN 60 H Creatinine 2.32 H Glucose 170 H Calcium 8.1 L Consult Discharge Plan - Plan [facility]errals: [facility]Primary Care Provider] - 11/12/17 2:30 pm Laverne Mckinney MD [Partnered Physician] - (SENT WEB REQUEST ON 11-07-16 @ [phone]) <Amanda Khan L - Last Filed: 11/12/17 09:14> Date of Encounter: 11/11/17 Time of Encounter: 10:36 Assessment and Plan (1) Myelofibrosis Status: Acute Assessment and plan: [facility]wait[facility] to verify information as per HPI which was obtained by patients . 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 It appears that he has had such severe fibrotic changes that he is not responding to platelets despite multiple transfusions. BMB in February 2016 had confirmed MDS, he transitioned to myelofibrosis as evidenced by BMB in July 2017. Awaiting path report confirmation records from [facility] He has been treated supportively during this time with Neupogen Qweek every Saturday and Aranesp Qweek every Saturday, along with frequent blood count monitoring and transfusions PRN (for hgb <7 and platelets <10). CT abdomen/pelvis in 07/2017 did show massive splenomegaly with significant portal venous dilatation, and nonspecific mild duodenal and ascending colonic wall thickening which could relate to edema or mild inflammation and moderate sigmoid colonic diverticulosis with mild wall thickening which likely relates to chronic inflammation. His GI bleed may be secondary to colitis and thrombocytopenia. Esophageal AVMs may be secondary to portal venous hypertension secondary to massive splenomegaly , his propranolol is on hold due to hypotension He has underwent EGD and Colonoscopy this admission, colonoscopy is planned to be repeated tomorrow with Dr. Mckinney as colonoscopy on 11/10 was unable to pass into descending colon due to tortouosity. He continues to have an active GI bleed, I witnessed dark melena like stool with a jelly like consistency in his BSC in room. He has had 6 units of PRBC and 4 of the ordered 7 units of platelets since his admission. Hgb 8.1, platelets 22, WBC 2.7 and ANC 1.2 Plan: Discussed case with attending team, recommendations made for patient to receive FFP today which may offer some needed clotting factors, recommendation also made for consideration of desmopressin as a one time dose prior to his colonoscopy if bleeding during procedure remains a concern. He understands colonoscopy is a high risk procedure and wishes to discuss procedure further with Dr. Mckinney. Treatment is palliative and supportive in nature, according to patients she understand this is the plan and that patient was never planned for curative intent treatment. Continue supportive treatment with transfusion for hgb <7 or platelet <10. Monitor H&H closely He is planned to receive Neupogen on Saturday and Aranesp on Saturday. 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 James is a 76 year old male with oncologic history significant for myelofibrosis. I am working to obtain records from the [place] where this patient currently receives his primary treatment. He is a member of the [facility] team, Cabrera Castillo is his primary oncology [employer]. According to patients he began having issues with pancytopenia in 2014 which was found during a preop assessment. He underwent bone marrow biopsy in February of 2016 and diagnosed with MDS. He has been treated supportively since that time. He underwent recent bone marrow biopsy in July of 2017 which apparently had shown transformation to Myelofibrosis. Since this time he has blood work on a regular basis along with PRN PRBC/platelet transfusion for hgb <7 and platelets <10. He also receives Neupogen weekly QTuesday and Aranesp weekly QWednesday. Mr. James presented to the ER on 11/06/17 with complaints of severe weakness for the past week and melena x7 days, worsening over the past 3 days prior to presentation. He was found to have a hgb of 5.9, platelets at 21 during his admission. He had a recent hospitalization for acute colitis. During admission his BUN was elevated at 118 his creatinine has increased up to 3.72 from a baseline of 2.21. He does have CKD Stage IV. He underwent EGD on 11/09 which found gastritis and AVMs treated with APC. He underwent colonoscopy on 11/10 which was not able to be advanced past the descending colon due to tortuousity, he did have evidence of congested mucosa in the sigmoid colon which was biopsied, multiple erosions in the sigmoid colon with touch bleeding. He had a recent GI bleed with same presentation in July 2017 when he was transferred to [place]. At this time according to , he was treated supportively and it was decided that scoping was of too much risk, as discussed above a repeat bone marrow biopsy was performed at this time which found Myelofibrosis. Again the above information was obtained from patients who appears to be a great historian and keeps good record of his care. I have faxed request to [place] for most recent oncology records Past Med Surg Social Fam HX - Past Medical History Medical history: CHF, diabetes, liver disease, renal disease, other Psychiatric history: no psych history - Past Surgical History Surgical History: other - Social History Smoking Status: Former smoker Smokeless Tobacco Status: No Alcohol use: none Drug use: none Constitutional: Present: anorexia, fatigue, weakness. Absent: frequent falls, weight loss Eyes: Absent: change in vision Nose, mouth and throat: Absent: dysphagia, mouth lesions Cardiovascular: Absent: chest pain, irregular heart rhythm, palpitations Respiratory: Present: dyspnea on exertion. Absent: cough Gastrointestinal: Present: as per HPI, abdominal pain, hematochezia, melena. Absent: hematemesis Additional comments: denies dysuria or hematuria Musculoskeletal: Absent: numbness, tingling Integumentary: Absent: wounds Neurological: Present: dizziness. Absent: focal weakness, headache(s) Hematologic/Lymphatic: Present: as per HPI Oncology - Exam - Constitutional Vitals: Temp Pulse Resp BP Pulse Ox 98.5 F 97 18 125/72 96 11/11/17 07:22 11/11/17 07:22 11/11/17 07:22 11/11/17 07:22 11/11/17 07:22 General appearance: cooperative, no acute distress, no febrile Exam: chronically ill appearing - Head Head exam: Present: atraumatic - ENT ENT exam: Present: mucous membranes moist - Respiratory Respiratory exam: Present: CTAB. Absent: respiratory distress - Cardiovascular Cardiovascular exam: Present: RRR, +S1, +S2 - GI/Abdominal GI/Abdominal exam: Present: normal bowel sounds, soft, tenderness Additional comments: RLQ tenderness/pain - Rectal Rectal exam: Present: bloody stool Additional comments: dark red, jelly consistency stool observed in BSC - Extremities Exam Extremities exam: Present: normal inspection. Absent: calf tenderness - Neurological Exam Neurological exam: Present: alert, oriented X3, no focal deficits, strengths equal and symetr throughout - Psychiatric Psychiatric exam: Present: normal affect, normal mood - Skin Skin exam: Present: pallor, warm Oncology - Results Labs: Short CBC 11/11/17 Range/Units 03:35 WBC 2.5 L (4.3-11.1) K/mcL Hgb 8.7 L (12.9-16.9) g/dL Hct 28.0 L (37.5-50.1) % Plt Count 21 L* (140-400) K/mcL Neutrophils # 1.3 L (1.6-8.9) K/mcL BMP 11/11/17 03:35 Sodium 136 Potassium 4.0 Chloride 106 Carbon Dioxide 23 BUN 60 H Creatinine 2.32 H Glucose 170 H Calcium 8.1 L
[2017-11-11] MEDS ORDERED: MetroNIDAZOLE 500 MG/100 ML 500 MG/100 ML BAG IVPB SCH (11:00)
--- NOTE | 2017-11-11 12:00 | Gastroenterology Progress Note ---
<Rosita Napier - Last Filed: 11/11/17 11:58> Date of Encounter: 11/11/17 Time of Encounter: 10:30 - Assessment and plan (1) Blood loss anemia Current Visit: Yes Status: Acute Assessment and plan: Pt has continued bloody stools and drop in hemoglobin. He is states post egd/ colonoscopy per Dr Aguirre. He was advised that he needs repeat scopes to treat bleeding. He is very reluctant to have repeat scopes and wants to speak with Dr Mckinney first. - Time Spent With Patient Total time spent is greater than 50% in coordination of care (as documented) at patient's floor/unit and/or counseling patient: - Subjective Interval history: 76 year old male who is status post EGD which showed grade a esophagitis and antral ectasias which were treated with APC. Also colonoscopy completed yesterday showed congested mucosa in the sigmoid colon which was biopsied, multiple sigmoid erosions bothe per Dr Aguirre. He reports maroon stools and bright red bleeding with wiping. He has pain in the left lower quadrant. Hgb dropped to 7.5 yesterday and is 8.7 today. He has received 6 units prbs and 4 pack platelets, since admission. - Constitutional Vitals: Temp Pulse Resp BP Pulse Ox 97.9 F 95 16 118/66 98 11/11/17 11:15 11/11/17 11:15 11/11/17 11:15 11/11/17 11:15 11/11/17 11:15 General appearance: Present: cooperative, A&O X 3, no acute distress, answers questions appropriately Exam: CONSTITUTIONAL:~alert, no acute distress.~HEAD:~normocephalic.~EYES:~no jaundice.~NECK:~no obvious swelling.~HEART:~regular rate and rhythm, no murmurs. ~LUNGS:~bilateral fair air entry.~ABDOMEN:~distended, soft, tender left lower quadrant, no masses pulpable, no organomegaly.~RECTAL EXAM:~Deferred.~ EXTREMITIES:~no clubbing, cyanosis, 1+ BLE edema.~SKIN:~no stigmata of chronic liver disease, pallor noted.~NEUROLOGIC:~no obvious focal defect.~~~~ Results - Labs CBC & Chem 7: 11/11/17 03:35 11/11/17 03:35 Labs: Last Result Calcium 8.1 mg/dL (8.6-10.3) L 11/11/17 03:35 Entire Visit Hgb 8.7 g/dL (12.9-16.9) L 11/11/17 03:35 Hct 28.0 % (37.5-50.1) L 11/11/17 03:35 PT 14.0 Seconds (9.4-12.1) H 11/06/17 11:32 - ABG ABG results: PT/INR, D-dimer PT 14.0 Seconds (9.4-12.1) H 11/06/17 11:32 - VTE Documentation of Mechanical Device: Intermittent pneumatic compression device Consult Discharge Plan - Plan [facility]errals: [facility] [Primary Care Provider] - Laverne Mckinney MD [Partnered Physician] - (SENT WEB REQUEST ON 11-07-16 @ [phone]) <Laverne Mckinney - Last Filed: 11/13/17 09:16> Date of Encounter: 11/11/17 Time of Encounter: 13:35 - Time Spent With Patient Total time spent is greater than 50% in coordination of care (as documented) at patient's floor/unit and/or counseling patient: - Constitutional Vitals: Temp Pulse Resp BP Pulse Ox 98.4 F 102 16 127/70 95 11/13/17 08:27 11/13/17 08:27 11/13/17 08:27 11/13/17 08:27 11/13/17 08:27 Results - Labs CBC & Chem 7: 11/13/17 04:43 11/13/17 04:43 Labs: Last Result Calcium 8.2 mg/dL (8.6-10.3) L 11/13/17 04:43 Iron 52 mcg/dL (65-175) L 11/11/17 11:56 % Saturation 23 % (20-55) 11/11/17 11:56 Transferrin 161 mg/dL (203-362) L 11/11/17 11:56 Ferritin > 1350 ng/ml (20-250) H 11/11/17 11:56 Vitamin B12 838 pg/mL (250-1100) 11/11/17 11:56 Folate 7.0 ng/mL (3.0-16.0) 11/11/17 11:56 Entire Visit Hgb 8.2 g/dL (12.9-16.9) L 11/13/17 04:43 Hct 26.6 % (37.5-50.1) L 11/13/17 04:43 PT 14.3 Seconds (9.4-12.1) H 11/11/17 17:18 Ferritin > 1350 ng/ml (20-250) H 11/11/17 11:56 Folate 7.0 ng/mL (3.0-16.0) 11/11/17 11:56 - ABG ABG results: PT/INR, D-dimer PT 14.3 Seconds (9.4-12.1) H 11/11/17 17:18 - Attending Attestation I have personally performed a face to face evaluation on this patient. I have reviewed and agree with the care plan. History and Exam by me shows:
[2017-11-11 12:36] LABS: Hemoglobin 8.1 g/dL (12.9-16.9); Immature Platelets 6.9 % (1.1-6.1); Mean Corpuscular Hemoglobin 31.3 pg (28.0-33.3); Mean Corpuscular Volume 104.2 fL (83.0-100.0); Mean Platelet Volume 10.5 fL (9.4-12.4); Nucleated Red Blood Cells 5.6 /100 WBC (0); Red Blood Count 2.59 M/mcL (4.19-5.50); Red Cell Distribution Width 25.9 % (11.5-14.5)
[2017-11-11 12:40] LABS: Platelet Count 22 K/mcL (140-400)
[2017-11-11 13:12] LABS: % Iron Saturation 23 % (20-55); Ferritin > 1350 ng/ml (20-250); Iron 52 mcg/dL (65-175); Transferrin 161 mg/dL (203-362)
[2017-11-11 13:17] LABS: Anisocytosis 2+ (Not Present); Eosinophils # 0.1 K/mcL (0.0-0.6); Lymphocytes # 1.1 K/mcL (0.6-4.6); Monocytes # 0.2 K/mcL (0.0-1.3); Neutrophils # 1.2 K/mcL (1.6-8.9); Platelet Estimate Marked Decrease (Normal)
[2017-11-11 14:03] LABS: Adenovirus F 40/41 PCR Not detected (Not detect); Astrovirus PCR Not detected (Not detect); C.difficile Toxin A/B by PCR See reflex test (Not detect); Campylobacter by PCR Not detected (Not detect); Cryptosporidium by PCR Not detected (Not detect); Cyclospora cayetanensis PCR Not detected (Not detect); E. coli O157 by PCR Not detected (Not detect); Entamoeba histolytica PCR Not detected (Not detect); Enteroaggregative E.coli(EAEC) Not detected (Not detect); Enteropathogenic E.coli(EPEC) Not detected (Not detect); Enterotoxigenic E.coli (ETEC) Not detected (Not detect); Giardia lamblia PCR Not detected (Not detect); Norovirus GI/GII PCR Not detected (Not detect); Plesiomonas shigelloides PCR Not detected (Not detect); Rotavirus A PCR Not detected (Not detect); Salmonella PCR Not detected (Not detect); Sapovirus PCR Not detected (Not detect); Shig/EnteroinvasiveE coli EIEC Not detected (Not detect); Shigalike tox-prod E coli STEC Not detected (Not detect); Vibrio PCR Not detected (Not detect); Vibrio cholerae PCR Not detected (Not detect); Yersinia enterocolitica PCR Not detected (Not detect)
[2017-11-11] MEDS: Vancomycin Oral Soln 250 MG/5 ML UDC PO SCH ×2 (17:27→21:31)
[2017-11-11 17:46] LABS: INR 1.3; Prothrombin Time 14.3 Seconds (9.4-12.1)
[2017-11-11 17:48] LABS: Activated Partial Thrombo Time 32.9 Seconds (26.0-36.0)
[2017-11-11] MEDS ORDERED: Furosemide 40 MG/4 ML VIAL IVP ONE (19:00)
[2017-11-11] MEDS: Gabapentin 100 MG CAPSULE PO SCH (21:31)
[2017-11-11] MEDS: OXYCODONE Oral CONC 10 MG/0.5 ML ORAL.SYG SL PRN (21:32)
[2017-11-11 22:17] LABS: Hemoglobin 8.1 g/dL (12.9-16.9)
[2017-11-11 22:19] LABS: Hematocrit 26.7 % (37.5-50.1); Immature Platelets 6.1 % (1.1-6.1); Lymphocytes # 0.5 K/mcL (0.6-4.6); Mean Corpuscular HGB Conc 30.3 g/dL (31.6-35.5); Mean Corpuscular Hemoglobin 31.8 pg (28.0-33.3); Mean Corpuscular Volume 104.7 fL (83.0-100.0); Mean Platelet Volume 10.3 fL (9.4-12.4); Monocytes # 0.4 K/mcL (0.0-1.3); Nucleated Red Blood Cells 5.4 /100 WBC (0); Red Blood Count 2.55 M/mcL (4.19-5.50); Red Cell Distribution Width 25.7 % (11.5-14.5)
[2017-11-11 22:26] LABS: Platelet Count 26 K/mcL (140-400)
[2017-11-11 22:57] LABS: Neutrophils # 1.9 K/mcL (1.6-8.9)
[2017-11-11 22:58] LABS: Anisocytosis 2+ (Not Present); Platelet Estimate Marked Decrease (Normal); Polychromasia 1+ (Not Present)
[2017-11-12 04:59] LABS: Eosinophils % 0.6 %
[2017-11-12 05:00] LABS: Basophils % 1.2 %; Hematocrit 21.7 % (37.5-50.1); Hemoglobin 6.5 g/dL (12.9-16.9); Immature Granulocytes % 10.1 % (0-4); Lymphocytes # 0.4 K/mcL (0.6-4.6); Lymphocytes % 25.4 %; Mean Corpuscular Hemoglobin 31.6 pg (28.0-33.3); Mean Corpuscular Volume 105.3 fL (83.0-100.0); Mean Platelet Volume 11.6 fL (9.4-12.4); Monocytes # 0.3 K/mcL (0.0-1.3); Monocytes % 15.4 %; Neutrophils # 0.8 K/mcL (1.6-8.9); Nucleated Red Blood Cells 7.7 /100 WBC (0); Red Blood Count 2.06 M/mcL (4.19-5.50); Red Cell Distribution Width 25.7 % (11.5-14.5); Segmented Neutrophils % 47.3 %
[2017-11-12 05:18] LABS: Calcium 8.2 mg/dL (8.6-10.3); Potassium 3.9 mEq/L (3.5-5.1)
[2017-11-12 05:21] LABS: Platelet Count 23 K/mcL (140-400)
[2017-11-12 05:43] LABS: Anisocytosis 2+ (Not Present); Macrocytosis Present (Not Present)
[2017-11-12] MEDS: Pantoprazole 40 MG VIAL IVP SCH ×2 (05:43→17:41)
[2017-11-12 05:44] LABS: Platelet Estimate Marked Decrease (Normal)
--- NOTE | 2017-11-12 08:08 | Internal Med Progress Note ---
<Mike Zamora - Last Filed: 11/12/17 08:05> Date of Encounter: 11/12/17 Time of Encounter: 08:05 - Assessment and plan (1) Blood loss anemia Current Visit: Yes Status: Acute Assessment and plan: Secondary to GI bleed in setting of MDS, thrombocytopenia Overnight patient's hemoglobin dropped from 8.1 to 6.5 Will be given 2 units of packed red blood cells. Continues to have bloody bowel movements. We will discuss with GI as patient is okay with repeat colonoscopy. Repeat H&H after red blood cell transfusion. (2) GI bleed Current Visit: Yes Status: Acute Assessment and plan: Patient continues to have bloody bowel movements. Continue pantoprazole 40 mg IV twice a day. Awaiting GI recommendations for colonoscopy. Qualifiers: GI bleed type/associated pathology: unspecified gastrointestinal hemorrhage type Qualified Code(s): K92.2 - Gastrointestinal hemorrhage, unspecified (3) Myelofibrosis Current Visit: Yes Status: Acute Assessment and plan: Patient has a history of myelofibrosis and receives transfusions every 2 weeks at the [facility]. Reports his baseline platelets are around 21. will receive his weekly Neupogen today. Appreciate oncology recommendations. (4) Thrombocytopenia Current Visit: Yes Status: Chronic Assessment and plan: Secondary myelofibrosis. Receive 2 units of platelets yesterday. Platelets stable at 23. Continue to monitor. (5) Chronic kidney disease, stage IV (severe) Current Visit: Yes Status: Chronic Assessment and plan: Serum creatinine back to baseline. Continue to monitor. (6) Diabetes Current Visit: Yes Status: Chronic Assessment and plan: Continue diabetic diet. Continue insulin regimen and sliding scale. Qualifiers: Diabetes mellitus type: type 2 Diabetes mellitus termination clerk insulin use: with [facility] use Diabetes mellitus complication status: without complication Qualified Code(s): E11.9 - Type 2 diabetes mellitus without complications; Z79.4 - long term care phlebotomist (current) use of insulin; Z79.4 - long term care phlebotomist ( current) use of insulin; Z79.4 - long term care phlebotomist (current) use of insulin; Z79.4 - long term care phlebotomist (current) use of insulin (7) Clostridium difficile colitis Current Visit: Yes Status: Acute Assessment and plan: Stool panel positive for C. difficile. Patient started on vancomycin by mouth. Continue C. difficile precautions. - Subjective Interval history: Patient ability bowel movement last night at 11 PM and this morning as well. His hemoglobin dropped by 1.5 g and was 6.5 this morning. He denies any headache, dizziness, shortness of breath, chest pain, palpitations, nausea, vomiting. - Constitutional Vitals: Temp Pulse Resp BP Pulse Ox 98.3 F 99 19 134/77 99 11/12/17 07:18 11/12/17 07:18 11/12/17 07:18 11/12/17 07:18 11/12/17 07:18 General appearance: Present: A&O X 3, pleasant, no acute distress, answers questions appropriately - Other Additional findings: General: Pleasant without distress Heart: Sinus tachycardia Lungs: Bibasilar crackles Abdomen: Soft nontender, nondistended positive bowel sounds Skin: warm and dry Extremities: Bilateral pedal edema Neuro: Alert oriented 3 Vascular: Pedal and radial pulses 2 out of 4 Internal Medicine: Result - Labs CBC & Chem 7: 11/12/17 04:00 11/12/17 04:00 Labs: Short CBC 11/11/17 11/11/17 11/12/17 Range/Units 11:56 21:45 04:00 WBC 2.7 L 2.8 L 1.7 L (4.3-11.1) K/mcL Hgb 8.1 L 8.1 L 6.5 L D (12.9-16.9) g/dL Hct 27.0 L 26.7 L 21.7 L (37.5-50.1) % Plt Count 22 L* 26 L* 23 L* (140-400) K/mcL Neutrophils # 1.2 L 1.9 0.8 L (1.6-8.9) K/mcL BMP 11/12/17 04:00 Sodium 137 Potassium 3.9 Chloride 106 Carbon Dioxide 21 L BUN 56 H Creatinine 2.22 H Glucose 248 H Calcium 8.2 L - ABG Interpretation ABG results: PT/INR, D-dimer PT 14.3 Seconds (9.4-12.1) H 11/11/17 17:18 - VTE Documentation of Mechanical Device: Intermittent pneumatic compression device Consult Discharge Plan - Plan [facility] Care Provider[facility] - 11/12/17 2:30 pm Laverne Mckinney MD [Partnered Physician] - (SENT WEB REQUEST ON 11-07-16 @ 6120) <Miah Zuluaga H - Last Filed: 11/12/17 16:30> Date of Encounter: 11/12/17 - Assessment and plan (1) Myelofibrosis Current Visit: Yes Status: Acute - Constitutional Vitals: Temp Pulse Resp BP Pulse Ox 98.7 F 101 16 131/72 99 11/12/17 12:30 11/12/17 12:30 11/12/17 12:30 11/12/17 12:30 11/12/17 12:30 Internal Medicine: Result - Labs CBC & Chem 7: 11/12/17 04:00 11/12/17 04:00 Labs: Short CBC 11/11/17 11/12/17 Range/Units 21:45 04:00 WBC 2.8 L 1.7 L (4.3-11.1) K/mcL Hgb 8.1 L 6.5 L D (12.9-16.9) g/dL Hct 26.7 L 21.7 L (37.5-50.1) % Plt Count 26 L* 23 L* (140-400) K/mcL Neutrophils # 1.9 0.8 L (1.6-8.9) K/mcL BMP 11/12/17 04:00 Sodium 137 Potassium 3.9 Chloride 106 Carbon Dioxide 21 L BUN 56 H Creatinine 2.22 H Glucose 248 H Calcium 8.2 L - ABG Interpretation ABG results: PT/INR, D-dimer PT 14.3 Seconds (9.4-12.1) H 11/11/17 17:18 - Attending Attestation Acute blood lows anemia secondary to GI bleed in the setting of pancytopenia due to myelofibrosis and acute C. difficile colitis Continue oral vancomycin, colonoscopy in the morning per GI Transfuse blood I examined this patient and my medical decision-making was reviewed with the Resident Physician. I agree with the documented findings, disposition and treatment plan as described except to the extent set forth below.
[2017-11-12] MEDS ORDERED: 0.9 % Sodium Chloride 250 ML ONE ×2 (09:06→16:13)
[2017-11-12] MEDS: Isosorbide MONOnitrate (24 HR) 30 MG TAB.ER.24H PO SCH (09:06)
[2017-11-12] MEDS: Lactobacillus 1 EACH CAP.SPRINK PO SCH ×2 (09:06→21:53)
[2017-11-12] MEDS: Insulin LISPRO 300 UNITS/3 ML VIAL SQ SCH ×4 (09:08→21:48)
[2017-11-12] MEDS: Vancomycin Oral Soln 250 MG/5 ML UDC PO SCH ×4 (09:08→21:54)
[2017-11-12] MEDS ORDERED: Furosemide 40 MG/4 ML VIAL IVP ONE (11:00)
--- NOTE | 2017-11-12 11:55 | Gastroenterology Progress Note ---
Date of Encounter: 11/12/17 Time of Encounter: 11:15 - Assessment and plan (1) Blood loss anemia Current Visit: Yes Status: Acute Assessment and plan: Pt had EGD/colonoscopy by Dr Aguirre but has continued GI bleeding. Spoke with Dr Aguirre. Pt and family advised that he is a risky candidate for colonoscopy due to thrombocytopenia but if he is actively bleeding it may be necessary. Pt and verbalize understanding and wish to proceed with endoscopy tomorrow. - Time Spent With Patient Total time spent is greater than 50% in coordination of care (as documented) at patient's floor/unit and/or counseling patient: - Subjective Interval history: Pt has continued bloody BMs but states is less. Hgb was 6.5 this am. He is being transfused 2 units PRBCs. - Constitutional Vitals: Temp Pulse Resp BP Pulse Ox 97.7 F 93 18 126/71 99 11/12/17 11:21 11/12/17 11:21 11/12/17 11:21 11/12/17 11:21 11/12/17 11:21 General appearance: Present: cooperative, A&O X 3, no acute distress, answers questions appropriately Exam: CONSTITUTIONAL:~alert, no acute distress.~HEAD:~normocephalic.~EYES:~no jaundice.~NECK:~no obvious swelling.~HEART:~regular rate and rhythm, no murmurs. ~LUNGS:~bilateral good air entry.~ABDOMEN:~non distended, soft, non tender, no masses palpable, no organomegaly.~RECTAL EXAM:~Deferred.~EXTREMITIES:~no clubbing, cyanosis or edema.~SKIN:~pallor noted, no stigmata of chronic liver disease.~NEUROLOGIC:~no obvious focal defect.~~~~ Results - Labs CBC & Chem 7: 11/12/17 04:00 11/12/17 04:00 Labs: Last Result Calcium 8.2 mg/dL (8.6-10.3) L 11/12/17 04:00 Iron 52 mcg/dL (65-175) L 11/11/17 11:56 % Saturation 23 % (20-55) 11/11/17 11:56 Transferrin 161 mg/dL (203-362) L 11/11/17 11:56 Ferritin > 1350 ng/ml (20-250) H 11/11/17 11:56 Vitamin B12 838 pg/mL (250-1100) 11/11/17 11:56 Folate 7.0 ng/mL (3.0-16.0) 11/11/17 11:56 Entire Visit Hgb 6.5 g/dL (12.9-16.9) L D 11/12/17 04:00 Hct 21.7 % (37.5-50.1) L 11/12/17 04:00 PT 14.3 Seconds (9.4-12.1) H 11/11/17 17:18 Ferritin > 1350 ng/ml (20-250) H 11/11/17 11:56 Folate 7.0 ng/mL (3.0-16.0) 11/11/17 11:56 - ABG ABG results: PT/INR, D-dimer PT 14.3 Seconds (9.4-12.1) H 11/11/17 17:18 - VTE Documentation of Mechanical Device: Intermittent pneumatic compression device Consult Discharge Plan - Plan [facility]errals: [facility]Primary Care Provider] - 11/12/17 2:30 pm Laverne Mckinney MD [Partnered Physician] - (SENT WEB REQUEST ON 11-07-16 @ 6178)
[2017-11-12] MEDS ORDERED: SODIUM CHLORIDE/NAHCO3/KCL/PEG 4,000 ML SOLN.RECON PO ONE (17:00)
[2017-11-12] MEDS: OXYCODONE Oral CONC 10 MG/0.5 ML ORAL.SYG SL PRN (17:44)
[2017-11-12] MEDS: Gabapentin 100 MG CAPSULE PO SCH (21:53)
[2017-11-12] MEDS: *HR* HYDROcodone/Acet 5/325 mg TABLET PO PRN (21:58)
[2017-11-12 22:15] LABS: Mean Corpuscular Volume 101.3 fL (83.0-100.0)
[2017-11-12 22:17] LABS: Hematocrit 30.1 % (37.5-50.1); Hemoglobin 9.2 g/dL (12.9-16.9); Immature Platelets 9.5 % (1.1-6.1); Mean Corpuscular HGB Conc 30.6 g/dL (31.6-35.5); Mean Platelet Volume 10.9 fL (9.4-12.4); Nucleated Red Blood Cells 2.9 /100 WBC (0); Red Blood Count 2.97 M/mcL (4.19-5.50); Red Cell Distribution Width 25.9 % (11.5-14.5)
[2017-11-12 22:21] LABS: Platelet Count 23 K/mcL (140-400)
[2017-11-12 22:51] LABS: Lymphocytes # 0.9 K/mcL (0.6-4.6); Monocytes # 0.3 K/mcL (0.0-1.3); Neutrophils # 6.3 K/mcL (1.6-8.9)
[2017-11-12 22:52] LABS: Platelet Estimate Marked Decrease (Normal); Toxic Vacuolation Present (Not Present)
[2017-11-12 22:53] LABS: Anisocytosis 3+ (Not Present); Dohle Bodies Present (Not Present)
[2017-11-12 22:57] LABS: Macrocytosis Present (Not Present); Polychromasia 1+ (Not Present)
[2017-11-13 05:22] LABS: Basophils % 0.3 %; Eosinophils % 0.3 %; Hemoglobin 8.2 g/dL (12.9-16.9)
[2017-11-13 05:24] LABS: Hematocrit 26.6 % (37.5-50.1); Immature Granulocytes % 1.2 % (0-4); Immature Platelets 9.8 % (1.1-6.1); Lymphocytes # 0.7 K/mcL (0.6-4.6); Lymphocytes % 12.2 %; Mean Corpuscular HGB Conc 30.8 g/dL (31.6-35.5); Mean Corpuscular Hemoglobin 31.1 pg (28.0-33.3); Mean Corpuscular Volume 100.8 fL (83.0-100.0); Mean Platelet Volume 11.6 fL (9.4-12.4); Monocytes # 0.8 K/mcL (0.0-1.3); Monocytes % 13.9 %; Neutrophils # 4.3 K/mcL (1.6-8.9); Nucleated Red Blood Cells 3.6 /100 WBC (0); Red Blood Count 2.64 M/mcL (4.19-5.50); Segmented Neutrophils % 72.1 %
[2017-11-13 05:27] LABS: Platelet Count 23 K/mcL (140-400)
[2017-11-13 05:43] LABS: Calcium 8.2 mg/dL (8.6-10.3)
[2017-11-13 05:57] LABS: Anisocytosis 3+ (Not Present); Platelet Estimate Marked Decrease (Normal); Polychromasia 2+ (Not Present)
[2017-11-13] MEDS: Pantoprazole 40 MG VIAL IVP SCH ×2 (06:03→16:54)
--- NOTE | 2017-11-13 08:17 | Internal Med Progress Note ---
<Mike Zamora - Last Filed: 11/13/17 08:14> Date of Encounter: 11/13/17 Time of Encounter: 08:14 - Assessment and plan (1) Blood loss anemia Current Visit: Yes Status: Acute Assessment and plan: Secondary to GI bleed in setting of MDS, thrombocytopenia hgb 8.2 continue to monitor (2) GI bleed Current Visit: Yes Status: Acute Assessment and plan: Plan for colonoscopy today patent receiving platelets this morning. Had additional bloddy bowel movement yesterday night continue to monitor hgb. Qualifiers: GI bleed type/associated pathology: unspecified gastrointestinal hemorrhage type Qualified Code(s): K92.2 - Gastrointestinal hemorrhage, unspecified (3) Chronic kidney disease, stage IV (severe) Current Visit: Yes Status: Chronic Assessment and plan: stable continue to monitor (4) Clostridium difficile colitis Current Visit: Yes Status: Acute Assessment and plan: Stool panel positive for C. difficile. Patient started on vancomycin by mouth. Continue C. difficile precautions. (5) Diabetes Current Visit: Yes Status: Chronic Assessment and plan: controlled Continue diabetic diet. Continue insulin regimen and sliding scale. Qualifiers: Diabetes mellitus type: type 2 Diabetes mellitus terminal system operator insulin use: with custodial use Diabetes mellitus complication status: without complication Qualified Code(s): E11.9 - Type 2 diabetes mellitus without complications; Z79.4 - residential (current) use of insulin; Z79.4 - [employer] terminal plant operator ( current) use of insulin; Z79.4 - petroleum terminal plant operator (current) use of insulin; Z79.4 - petroleum terminal plant operator (current) use of insulin (6) Thrombocytopenia Current Visit: Yes Status: Chronic Assessment and plan: stable Receiving platelet transfusion before colonoscopy continue to monitor (7) Myelofibrosis Current Visit: Yes Status: Acute - Subjective Interval history: Patient has colonoscopy planned for today. He continues to have left lower quadrant abdominal pain which remains unchanged. He reports no acute overnight events. - Constitutional Vitals: Temp Pulse Resp BP Pulse Ox 98.3 F 99 16 121/67 96 11/13/17 07:05 11/13/17 07:05 11/13/17 07:05 11/13/17 07:05 11/13/17 07:05 General appearance: Present: A&O X 3, pleasant, no acute distress, answers questions appropriately - Other Additional findings: General: plesant without distress Heart: Regular rate and rhythm with no murmur Lungs: Clear to auscultation bilaterally Abdomen: mild tenderness to LLQ, +BS, non-distended Skin: warm and dry Extremities: 1+ pedal edema Neuro: alert and oriented x 3 Vascular: Pedal and radial pulses 2 out of 4 Internal Medicine: Result - Labs CBC & Chem 7: 11/13/17 04:43 11/13/17 04:43 Labs: Short CBC 11/12/17 11/13/17 Range/Units 17:00 04:43 WBC 7.7 D 5.9 (4.3-11.1) K/mcL Hgb 9.2 L D 8.2 L (12.9-16.9) g/dL Hct 30.1 L 26.6 L (37.5-50.1) % Plt Count 23 L* 23 L* (140-400) K/mcL Neutrophils # 6.3 4.3 (1.6-8.9) K/mcL BMP 11/13/17 04:43 Sodium 137 Potassium 4.0 Chloride 105 Carbon Dioxide 23 BUN 47 H Creatinine 2.06 H Glucose 106 H Calcium 8.2 L - ABG Interpretation ABG results: PT/INR, D-dimer PT 14.3 Seconds (9.4-12.1) H 11/11/17 17:18 - VTE Documentation of Mechanical Device: Intermittent pneumatic compression device Consult Discharge Plan - Plan [facility]errals: [facility] [Primary Care Provider] - Laverne Mckinney MD [Partnered Physician] - (SENT WEB REQUEST ON 11-07-16 @ 1312) <Miah Zuluaga H - Last Filed: 11/13/17 09:25> Date of Encounter: 11/13/17 - Assessment and plan (1) Blood loss anemia Current Visit: Yes Status: Acute (2) GI bleed Current Visit: Yes Status: Acute Qualifiers: GI bleed type/associated pathology: unspecified gastrointestinal hemorrhage type Qualified Code(s): K92.2 - Gastrointestinal hemorrhage, unspecified (3) Chronic kidney disease, stage IV (severe) Current Visit: Yes Status: Chronic (4) Clostridium difficile colitis Current Visit: Yes Status: Acute (5) Diabetes Current Visit: Yes Status: Chronic Qualifiers: Diabetes mellitus type: type 2 Diabetes mellitus terminal system operator insulin use: with terminal system operator use Diabetes mellitus complication status: without complication Qualified Code(s): E11.9 - Type 2 diabetes mellitus without complications; Z79.4 - residential (current) use of insulin; Z79.4 - petroleum terminal plant operator ( current) use of insulin; Z79.4 - petroleum terminal plant operator (current) use of insulin; Z79.4 - petroleum terminal plant operator (current) use of insulin (6) Thrombocytopenia Current Visit: Yes Status: Chronic (7) Myelofibrosis Current Visit: Yes Status: Acute - Constitutional Vitals: Temp Pulse Resp BP Pulse Ox 98.4 F 102 16 127/70 95 11/13/17 08:27 11/13/17 08:27 11/13/17 08:27 11/13/17 08:27 11/13/17 08:27 Internal Medicine: Result - Labs CBC & Chem 7: 11/13/17 04:43 11/13/17 04:43 Labs: Short CBC 11/12/17 11/13/17 Range/Units 17:00 04:43 WBC 7.7 D 5.9 (4.3-11.1) K/mcL Hgb 9.2 L D 8.2 L (12.9-16.9) g/dL Hct 30.1 L 26.6 L (37.5-50.1) % Plt Count 23 L* 23 L* (140-400) K/mcL Neutrophils # 6.3 4.3 (1.6-8.9) K/mcL BMP 11/13/17 04:43 Sodium 137 Potassium 4.0 Chloride 105 Carbon Dioxide 23 BUN 47 H Creatinine 2.06 H Glucose 106 H Calcium 8.2 L - ABG Interpretation ABG results: PT/INR, D-dimer PT 14.3 Seconds (9.4-12.1) H 11/11/17 17:18 - Attending Attestation Acute blood lows anemia secondary to GI bleed in the setting of pancytopenia due to myelofibrosis and acute C. difficile colitis Continue oral vancomycin, colonoscopy today per GI Transfused blood I examined this patient and my medical decision-making was reviewed with the Resident Physician. I agree with the documented findings, disposition and treatment plan as described except to the extent set forth below.
[2017-11-13] MEDS: Insulin LISPRO 300 UNITS/3 ML VIAL SQ SCH ×4 (08:52→22:31)
[2017-11-13] MEDS: Isosorbide MONOnitrate (24 HR) 30 MG TAB.ER.24H PO SCH (10:18)
[2017-11-13] MEDS: Lactobacillus 1 EACH CAP.SPRINK PO SCH ×2 (10:19→21:09)
[2017-11-13] MEDS: Vancomycin Oral Soln 250 MG/5 ML UDC PO SCH ×4 (10:19→22:39)
[2017-11-13] MEDS: *HR* HYDROcodone/Acet 5/325 mg TABLET PO PRN (10:26)
[2017-11-13] MEDS ORDERED: Lidocaine -MPF 2% 2 ML VIAL ONE (13:21)
[2017-11-13] MEDS ORDERED: *HR* Propofol 200 MG/20 ML VIAL IVP ONE ×2 (13:21→13:43)
--- NOTE | 2017-11-13 14:12 | Anesthesia Evaluation PreOp ---
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 GOUT. PROSTATE CANCER.) Alcohol Use: none Drug use: none Medications and Allergies Atorvastatin Calcium [Lipitor] 10 mg PO DAILY 09/09/17 [History] Cholecalciferol (D-3) [Vitamin D] 1,000 unit PO DAILY 09/09/17 [History] Filgrastim [Neupogen] 480 mcg SQ TU 09/09/17 [History] Furosemide [Lasix] 40 mg PO BID 09/09/17 [History] Gabapentin [Neurontin] 200 mg PO BID 09/09/17 [History] Hydroxyzine HCl 20 mg PO BID 09/09/17 [History] Insulin NPH, HUMAN [HumuLIN N] 46 unit SQ QAM 09/09/17 [History] Insulin NPH, HUMAN [HumuLIN N] 50 units SQ QPM 09/09/17 [History] Isosorbide MONOnitrate (24 HR) [Imdur] 15 mg PO DAILY 09/09/17 [History] Omeprazole 20 mg PO BID 09/09/17 [History] Propranolol [Inderal] 20 mg PO BID 09/09/17 [History] Darbepoetin [Aranesp] 500 mcg SQ QWEEK 09/10/17 [History] Levothyroxine Sodium [Levoxyl] 125 mcg PO DAILY 11/06/17 [History] Multivit-Min/FA/Lycopen/Lutein [A Thru Z Select Multivit Tab] 1 tab PO DAILY 03/19 [History] Oxycodone HCl/Acetaminophen [Percocet 5-325 mg Tablet] 1 tab PO Q6H PRN [History] metOLazone [Zaroxolyn] 5 mg PO DAILY 11/06/17 [History] 3 Allergy/AdvReac Type Severity Reaction Status Date / Time lorazepam AdvReac Hallucinati Verified 09/12/17 08:38 ng metformin AdvReac See Verified 07/14/17 11:04 Comments niacin AdvReac Flushing Verified 07/14/17 11:04 nitroglycerin AdvReac See Verified 07/14/17 11:04 Comments Anesthesia Results - Labs 11/13/17 04:43 11/13/17 04:43 Anesthesia Exam Vital Signs/O2 Sat/Glucose, Most Recent Temp Pulse Resp BP Pulse Ox 98.1 F 93 16 116/63 96 11/13/17 11:11 11/13/17 11:11 11/13/17 11:11 11/13/17 11:11 11/13/17 11:11 Blood Glucose* 125 - HEENT Mallampati: II Teeth: Edentulous (UPPER) - ENVIRONMENT COORDINATOR LOC: Oriented - Cardiac Rhythm: Regular - Pulmonary Breath Sounds: bilateral Clear Anesthesia Assess/Plan ASA Score: 4 Modified Chandler Scale for Level of Consciousness: Cooperative, oriented, and tranquil Anesthetic Plan: MAC Monitoring Plan: Standard Monitors Recovery Plan: Other Anes Supervising Prov Stmt: I have participated in the evaluation of this patient. Patient informed and consented. Risks, benefits, and alternatives discussed. Patient wishes to proceed.
[2017-11-13] MEDS: OXYCODONE Oral CONC 10 MG/0.5 ML ORAL.SYG SL PRN ×2 (16:06→21:20)
[2017-11-13 17:36] LABS: Hematocrit 28.4 % (37.5-50.1); Hemoglobin 8.6 g/dL (12.9-16.9)
[2017-11-13] MEDS: Octreotide 50 MCG/ML SYRINGE IVP SCH ×2 (20:01→21:10)
[2017-11-13] MEDS: Gabapentin 100 MG CAPSULE PO SCH (21:09)
[2017-11-14] MEDS: Pantoprazole 40 MG VIAL IVP SCH ×3 (05:07→20:47)
[2017-11-14] MEDS: Lactobacillus 1 EACH CAP.SPRINK PO SCH ×2 (08:07→20:46)
[2017-11-14] MEDS: Isosorbide MONOnitrate (24 HR) 30 MG TAB.ER.24H PO SCH (08:07)
[2017-11-14] MEDS: Vancomycin Oral Soln 250 MG/5 ML UDC PO SCH ×4 (08:07→22:30)
[2017-11-14] MEDS: Octreotide 50 MCG/ML SYRINGE IVP SCH (08:11)
[2017-11-14] MEDS: Insulin LISPRO 300 UNITS/3 ML VIAL SQ SCH ×3 (08:28→17:30)
[2017-11-14 08:46] LABS: Hematocrit 26.8 % (37.5-50.1); Hemoglobin 8.1 g/dL (12.9-16.9); Mean Corpuscular HGB Conc 30.2 g/dL (31.6-35.5); Mean Corpuscular Hemoglobin 30.9 pg (28.0-33.3); Mean Corpuscular Volume 102.3 fL (83.0-100.0); Mean Platelet Volume 12.5 fL (9.4-12.4); Nucleated Red Blood Cells 2.3 /100 WBC (0); Red Blood Count 2.62 M/mcL (4.19-5.50); Red Cell Distribution Width 25.4 % (11.5-14.5)
[2017-11-14 08:53] LABS: Platelet Count 22 K/mcL (140-400)
[2017-11-14 10:34] LABS: Lymphocytes # 0.7 K/mcL (0.6-4.6); Monocytes # 0.3 K/mcL (0.0-1.3); Platelet Estimate Decreased (Normal)
[2017-11-14 10:35] LABS: Anisocytosis 1+ (Not Present)
--- NOTE | 2017-11-14 10:57 | Internal Med Progress Note ---
<Mike Zamora - Last Filed: 11/14/17 10:54> Date of Encounter: 11/14/17 Time of Encounter: 10:54 - Assessment and plan (1) Blood loss anemia Current Visit: Yes Status: Acute Assessment and plan: Secondary to upper and lower GI bleed. hgb 8.1 Status post EGD and colonoscopy with hemostasis of AVMs on sandostatin as per GI awaiting biopsy results from colonoscopy continue hgb monitoring (2) GI bleed Current Visit: Yes Status: Acute Assessment and plan: plan as above. Qualifiers: GI bleed type/associated pathology: unspecified gastrointestinal hemorrhage type Qualified Code(s): K92.2 - Gastrointestinal hemorrhage, unspecified (3) Chronic kidney disease, stage IV (severe) Current Visit: Yes Status: Chronic Assessment and plan: stable continue to monitor (4) Clostridium difficile colitis Current Visit: Yes Status: Acute Assessment and plan: Stool panel positive for C. difficile. Patient started on vancomycin by mouth. Continue C. difficile precautions. already has had 4 BMs this morning. plan: will continue vancomycin. (5) Diabetes Current Visit: Yes Status: Chronic Assessment and plan: controlled Continue diabetic diet. Continue insulin regimen and sliding scale. Qualifiers: Diabetes mellitus type: type 2 Diabetes mellitus terminal carman insulin use: with prison use Diabetes mellitus complication status: without complication Qualified Code(s): E11.9 - Type 2 diabetes mellitus without complications; Z79.4 - terminal make up operator (current) use of insulin; Z79.4 - terminal make up operator ( current) use of insulin; Z79.4 - terminal make up operator (current) use of insulin; Z79.4 - terminal make up operator (current) use of insulin (6) Thrombocytopenia Current Visit: Yes Status: Chronic Assessment and plan: stable Receiving platelet transfusion before colonoscopy continue to monitor (7) Myelofibrosis Current Visit: Yes Status: Acute Assessment and plan: follow up with oncology outpatient - Subjective Interval history: Endoscopy yesterday found multiple medium-sized diffuse and telangiectasias versus red spots throughout the entire colon and hemostasis achieved using argon plasma. She is here granular mucosa was found in the cecum which was biopsied. Biopsies are pending. GI started patient on octreotide. This morning patient had a nonbloody green bowel movement. She denies any abdominal pain, nausea, vomiting. He is tolerating a regular diet. - Constitutional Vitals: Temp Pulse Resp BP Pulse Ox 97.8 F 87 16 139/76 97 11/14/17 08:15 11/14/17 08:15 11/14/17 08:15 11/14/17 08:15 11/14/17 08:15 General appearance: Present: A&O X 3, pleasant, no acute distress, answers questions appropriately - Other Additional findings: General: Pleasant without distress Heart: Regular rate and rhythm with no murmur Lungs: Clear to auscultation bilaterally Abdomen: Soft mild tenderness of the left lower quadrant, nondistended positive bowel sounds Skin: warm and dry Extremities: Mild pedal edema bilaterally Neuro: Alert oriented 3 Vascular: Pedal and radial pulses 2 out of 4 Internal Medicine: Result - Labs CBC & Chem 7: 11/14/17 08:15 11/13/17 04:43 Labs: Short CBC 11/13/17 11/14/17 Range/Units 17:10 08:15 WBC 3.0 L (4.3-11.1) K/mcL Hgb 8.6 L 8.1 L (12.9-16.9) g/dL Hct 28.4 L 26.8 L (37.5-50.1) % Plt Count 22 L* (140-400) K/mcL Neutrophils # 2.0 (1.6-8.9) K/mcL - ABG Interpretation ABG results: PT/INR, D-dimer PT 14.3 Seconds (9.4-12.1) H 11/11/17 17:18 - VTE Documentation of Mechanical Device: Intermittent pneumatic compression device Consult Discharge Plan - Plan [facility]errals: [facility] [Primary Care Provider] - 12/03/17 10:00 am Laverne Mckinney MD [Partnered Physician] - (SENT WEB REQUEST ON 11-07-16 @ 2577) <Miah Zuluaga H - Last Filed: 11/14/17 13:21> Date of Encounter: 11/14/17 - Assessment and plan (1) Blood loss anemia Current Visit: Yes Status: Acute (2) GI bleed Current Visit: Yes Status: Acute Qualifiers: GI bleed type/associated pathology: unspecified gastrointestinal hemorrhage type Qualified Code(s): K92.2 - Gastrointestinal hemorrhage, unspecified (3) Chronic kidney disease, stage IV (severe) Current Visit: Yes Status: Chronic (4) Clostridium difficile colitis Current Visit: Yes Status: Acute (5) Diabetes Current Visit: Yes Status: Chronic Qualifiers: Diabetes mellitus type: type 2 Diabetes mellitus terminal carman insulin use: with prison use Diabetes mellitus complication status: without complication Qualified Code(s): E11.9 - Type 2 diabetes mellitus without complications; Z79.4 - terminal make up operator (current) use of insulin; Z79.4 - [facility] ( current) use of insulin; Z79.4 - [facility] (current) use of insulin; Z79.4 - [facility] (current) use of insulin (6) Thrombocytopenia Current Visit: Yes Status: Chronic (7) Myelofibrosis Current Visit: Yes Status: Acute - Constitutional Vitals: Temp Pulse Resp BP Pulse Ox 97.9 F 86 16 129/70 95 11/14/17 11:40 11/14/17 11:40 11/14/17 11:40 11/14/17 11:40 11/14/17 11:40 Internal Medicine: Result - Labs CBC & Chem 7: 11/14/17 08:15 11/14/17 10:50 Labs: Short CBC 11/13/17 11/14/17 Range/Units 17:10 08:15 WBC 3.0 L (4.3-11.1) K/mcL Hgb 8.6 L 8.1 L (12.9-16.9) g/dL Hct 28.4 L 26.8 L (37.5-50.1) % Plt Count 22 L* (140-400) K/mcL Neutrophils # 2.0 (1.6-8.9) K/mcL BMP 11/14/17 10:50 Sodium 134 L Potassium 4.6 Chloride 103 Carbon Dioxide 24 BUN 44 H Creatinine 2.08 H Glucose 216 H Calcium 8.2 L - ABG Interpretation ABG results: PT/INR, D-dimer PT 14.3 Seconds (9.4-12.1) H 11/11/17 17:18 - Attending Attestation Acute blood loss anemia secondary to upper and lower GI bleed in the setting of pancytopenia due to myelofibrosis and acute C. difficile colitis Continue oral vancomycin, colonoscopy showed miltiple AVMs that were cautherized and an area of granularity in the cecum that was biopsied Transfused blood I examined this patient and my medical decision-making was reviewed with the Resident Physician. I agree with the documented findings, disposition and treatment plan as described except to the extent set forth below.
[2017-11-14 12:14] LABS: Calcium 8.2 mg/dL (8.6-10.3); Potassium 4.6 mEq/L (3.5-5.1)
[2017-11-14] MEDS: *HR* HYDROcodone/Acet 5/325 mg TABLET PO PRN (16:33)
[2017-11-14] MEDS: Gabapentin 100 MG CAPSULE PO SCH (20:50)
[2017-11-15] MEDS: Octreotide 50 MCG/ML SYRINGE IVP SCH ×3 (02:02→22:30)
[2017-11-15] MEDS: Cholestyramine 4 GM POWD.PACK PO SCH ×4 (02:04→22:49)
[2017-11-15] MEDS: Insulin LISPRO 300 UNITS/3 ML VIAL SQ SCH ×5 (02:06→22:30)
[2017-11-15] MEDS: Pantoprazole 40 MG VIAL IVP SCH ×2 (05:47→17:45)
[2017-11-15 06:24] LABS: Basophils % 0.5 %; Eosinophils % 0.5 %; Hematocrit 25.8 % (37.5-50.1); Red Cell Distribution Width 25.2 % (11.5-14.5); Segmented Neutrophils % 53.1 %
[2017-11-15 06:26] LABS: Hemoglobin 7.8 g/dL (12.9-16.9); Immature Granulocytes % 6.1 % (0-4); Immature Platelets 6.7 % (1.1-6.1); Lymphocytes # 0.5 K/mcL (0.6-4.6); Lymphocytes % 24.8 %; Mean Corpuscular HGB Conc 30.2 g/dL (31.6-35.5); Mean Corpuscular Hemoglobin 30.8 pg (28.0-33.3); Mean Platelet Volume 10.1 fL (9.4-12.4); Monocytes # 0.3 K/mcL (0.0-1.3); Neutrophils # 1.1 K/mcL (1.6-8.9); Nucleated Red Blood Cells 3.3 /100 WBC (0); Red Blood Count 2.53 M/mcL (4.19-5.50)
[2017-11-15 06:41] LABS: Calcium 8.2 mg/dL (8.6-10.3); Potassium 4.4 mEq/L (3.5-5.1)
[2017-11-15 06:42] LABS: Platelet Count 18 K/mcL (140-400)
[2017-11-15 07:45] LABS: Platelet Estimate Marked Decrease (Normal)
--- NOTE | 2017-11-15 08:29 | Discharge Summary ---
<Mike Zamora - Last Filed: 11/15/17 08:25> Orders not resulted at time of discharge: Pending orders 11/13/17 15:14 Surgical Pathology [PTH] Routine Date of Encounter: 11/15/17 Time of Encounter: 08:26 - Discharge Diagnosis (1) Blood loss anemia Priority: Primary Status: Acute (2) GI bleed Priority: Secondary Status: Acute Qualifiers: GI bleed type/associated pathology: unspecified gastrointestinal hemorrhage type Qualified Code(s): K92.2 - Gastrointestinal hemorrhage, unspecified (3) Chronic kidney disease, stage IV (severe) Priority: Secondary Status: Chronic (4) Clostridium difficile colitis Priority: Secondary Status: Acute (5) Diabetes Priority: Secondary Status: Chronic Qualifiers: Diabetes mellitus type: type 2 Diabetes mellitus chcf insulin use: with chcf use Diabetes mellitus complication status: without complication Qualified Code(s): E11.9 - Type 2 diabetes mellitus without complications; Z79.4 - steel plate printer (current) use of insulin; Z79.4 - steel plate printer ( current) use of insulin; Z79.4 - steel plate printer (current) use of insulin; Z79.4 - correction (current) use of insulin (6) Thrombocytopenia Priority: Secondary Status: Chronic (7) Myelofibrosis Priority: Secondary Status: Acute Hospital course: Mr. James is a 76 year old male presented with severe weakness. Reported having dark stools for the past 7 days before admission. His hemoglobin was 5.9 on admission. Patient has history of myelofibrosis chronic thrombocytopenia and a baseline platelets of 21. Patient also was found to have acute on chronic renal failure. He was given 3 units of red blood cells on admission. Treated with IV fluids, Protonix IV every 12. GI was consulted. 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 The AVMs treated with argon plasma coagulation. Patient had 2 colonoscopies during his visit. Initial colonoscopy showed congested mucosa in the sigmoid colon with multiple erosions however initial colonoscopy was not able to advanced past the descending colon. Biopsies were taken from the initial colonoscopy and showed infectious colitis. And patient was tested positive for C. difficile colitis. Patient was started on by mouth vancomycin for treatment. During his stay patient required 8 units of red blood cell transfusions, 3 units of plasma and 7 units of platelets. Patient had a repeat colonoscopy doses successful in reaching ileocecal valve. Repeat colonoscopy showed multiple colonic angiectasia is which were treated with argon plasma coagulation and granularity in the cecum which was biopsied and pending. Patient also started on octreotide 100 g twice a day as a measure to decrease portal venous pressure and therefore decrease bleeding. Since starting vancomycin therapy. Oral vancomycin therapy was started on 11/11/17 and patient will need a long stepdown course as per ID guidelines. Patient continues to have over 6 loose bowel movements per day. Since his endoscopy procedures his hemoglobin has dropped from 8.6-7.8. He may require additional transfusions. His platelets currently are 18. He may require platelet transfusions as well. Patient will need to be inpatient until his bowel movements are controlled as he may need fluid resuscitation due to rehydration. Patient is tolerating his diet, and vitals are stable. [facility] has called stating they can take on the patient' s care. [facility] - Time Spent with Patient Total time spent providing and/or coordinating discharge services: - Discharge Medications Home Medications: Atorvastatin Calcium [Lipitor] 10 mg PO DAILY 09/09/17 [History] Cholecalciferol (D-3) [Vitamin D] 1,000 unit PO DAILY 09/09/17 [History] Filgrastim [Neupogen] 480 mcg SQ TU 09/09/17 [History] Furosemide [Lasix] 40 mg PO BID 09/09/17 [History] Gabapentin [Neurontin] 200 mg PO BID 09/09/17 [History] Hydroxyzine HCl 20 mg PO BID 09/09/17 [History] Insulin NPH, HUMAN [HumuLIN N] 46 unit SQ QAM 09/09/17 [History] Insulin NPH, HUMAN [HumuLIN N] 50 units SQ QPM 09/09/17 [History] Isosorbide MONOnitrate (24 HR) [Imdur] 15 mg PO DAILY 09/09/17 [History] Omeprazole 20 mg PO BID 09/09/17 [History] Propranolol [Inderal] 20 mg PO BID 09/09/17 [History] Darbepoetin [Aranesp] 500 mcg SQ QWEEK 09/10/17 [History] Levothyroxine Sodium [Levoxyl] 125 mcg PO DAILY 11/06/17 [History] Multivit-Min/FA/Lycopen/Lutein [A Thru Z Select Multivit Tab] 1 tab PO DAILY 03/19 [History] Oxycodone HCl/Acetaminophen [Percocet 5-325 mg Tablet] 1 tab PO Q6H PRN [History] metOLazone [Zaroxolyn] 5 mg PO DAILY 11/06/17 [History] Calcitriol [Rocaltrol] 0.25 mcg PO DAILY capsule 11/15/17 [Rx] HydrOXYzine 10 mg PO HS PRN tablet 11/15/17 [Rx] Lactobacillus [Culturelle] 1 each PO BID cap.sprink 11/15/17 [Rx] Octreotide [SandoSTATIN] 50 mcg IVP BID syringe 11/15/17 [Rx] Ondansetron [Zofran] 4 mg IVP Q8HR PRN vial 11/15/17 [Rx] Pantoprazole [Protonix] 40 mg IVP Q12HR vial 11/15/17 [Rx] Allergies/Adverse Reactions: 3 Allergy/AdvReac Type Severity Reaction Status Date / Time lorazepam AdvReac Hallucinati Verified 09/12/17 08:38 ng metformin AdvReac See Verified 07/14/17 11:04 Comments niacin AdvReac [place] Verified 07/14/17 11:04 nitroglycerin AdvReac See Verified 07/14/17 11:04 Comments Date of admission: 11/06/17 16:07 [facility]: [facility] Consults: 11/06/17 18:16 Consult to Pastoral Services [CONS] Routine Comment: 11/07/17 Consult to Nutrition [CONS] Routine Comment: Consulting Provider: NUTRITION Reason for Dietary Consult: Other MST Score 11/11/17 09:02 Consult to Oncology Hematology [CONS] Routine Consulting Provider: René Kimble Reason for Consult: MDS, thromobycotpenia Call Completed: Yes 11/14/17 10:50 Consult to Occupational Therapy [CONS] Routine Comment: Evaluate, develop and implement POC Reason for Consult: eval Does patient have active BEDREST order?: No Is patient medically & hemodynamically stable?: Yes Patient assessed for mobility or mobilized this visit?: Yes Consult to Physical Therapy [CONS] Routine Comment: Evaluate, develop and implement POC Reason for Consult: eval Does patient have active BEDREST order?: No Is patient medically & hemodynamically stable?: Yes Patient assessed for mobility or mobilized this visit?: Yes Discharging clinician: Mike Zamora Anticipated date of discharge: 11/15/17 - Constitutional Vitals: Temp Pulse Resp BP Pulse Ox 98.3 F 90 18 135/82 95 11/15/17 07:48 11/15/17 07:48 11/15/17 07:48 11/15/17 07:48 11/15/17 07:48 General appearance: Present: A&O X 3, pleasant, no acute distress, answers questions appropriately - Other Additional findings: General: Pleasant without distress HEENT: Head atraumatic, normocephalic, EOMI, PERRLA, neck nontender to palpation , absent lymphadenopathy, Moist Mucous Membranes, Heart: Regular rate and rhythm with no murmur Lungs: Clear to auscultation bilaterally Abdomen: Soft nontender, nondistended positive bowel sounds Skin: warm and dry Extremities: Absent pedal edema, Neuro: Cranial nerves II through XII intact, UE and LE sensation equal bilaterally, UE and LEstrength 5/5, alert oriented 3, Heel to rowe intact, finger to nose intact, Gait intact, rhombergs sign negative, b/l plantar reflexes downwards Vascular: Pedal and radial pulses 2 out of 4 - Patient Status Disposition: Transfer [facility] Condition: Fair Functional capacity at discharge: independent ambulation Overall status at discharge: patient is progressing back to baseline - Discharge Instructions [facility] With: [facility] Provider[facility] - 12/03/17 10:00 am Laverne Mckinney MD [Partnered Physician] - (SENT WEB REQUEST ON 11-07-16 @ [id number]) - Diet and Activity Activity: increase activity as tolerated Diet: diabetic diet, low fat, low cholesterol, low salt diet - VTE Documentation of Mechanical Device: Intermittent pneumatic compression device <Miah Zuluaga - Last Filed: 11/15/17 16:32> Orders not resulted at time of discharge: Pending orders 11/16/17 04:00 BMP [Basic Metabolic Panel] AM 0400 Complete Blood Count [HEME] AM 0400 Date of Encounter: 11/15/17 - Discharge Diagnosis (1) Blood loss anemia Status: Acute (2) GI bleed Status: Acute Qualifiers: GI bleed type/associated pathology: unspecified gastrointestinal hemorrhage type Qualified Code(s): K92.2 - Gastrointestinal hemorrhage, unspecified (3) Chronic kidney disease, stage IV (severe) Status: Chronic (4) Clostridium difficile colitis Status: Acute (5) Diabetes Status: Chronic Qualifiers: Diabetes mellitus type: type 2 Diabetes mellitus chcf insulin use: with chcf use Diabetes mellitus complication status: without complication Qualified Code(s): E11.9 - Type 2 diabetes mellitus without complications; Z79.4 - steel plate printer (current) use of insulin; Z79.4 - steel plate printer ( current) use of insulin; Z79.4 - steel plate printer (current) use of insulin; Z79.4 - steel plate printer (current) use of insulin (6) Thrombocytopenia Status: Chronic (7) Myelofibrosis Status: Acute Hospital course: Mr. James is a 76 year old male - Time Spent with Patient Total time spent providing and/or coordinating discharge services: Date of admission: 11/06/17 16:07 Primary care physician: [facility] Consults: 11/06/17 18:16 Consult to Pastoral Services [CONS] Routine Comment: 11/07/17 Consult to Nutrition [CONS] Routine Comment: Consulting Provider: NUTRITION Reason for Dietary Consult: Other MST Score 11/11/17 09:02 Consult to Oncology Hematology [CONS] Routine Consulting Provider: René Kimble Reason for Consult: MDS, thromobycotpenia Call Completed: Yes 11/14/17 10:50 Consult to Physical Therapy [CONS] Routine Comment: Evaluate, develop and implement POC Reason for Consult: eval Does patient have active BEDREST order?: No Is patient medically & hemodynamically stable?: Yes Patient assessed for mobility or mobilized this visit?: Yes - Constitutional Vitals: Temp Pulse Resp BP Pulse Ox 98.3 F 97 18 134/83 96 11/15/17 07:48 11/15/17 11:53 11/15/17 11:53 11/15/17 11:53 11/15/17 11:53 - Attending Attestation Acute blood loss anemia secondary to upper and lower GI bleed in the setting of pancytopenia due to myelofibrosis and acute C. difficile colitis Continue oral vancomycin, colonoscopy showed miltiple AVMs that were cautherized and an area of granularity in the cecum that was biopsied Was Transfused blood [facility] called on requesting him to go back to their facility. Still requires hopsitalization due to multiple BMs and risk of rapid dehydration time spent: 40 min I examined this patient and my medical decision-making was reviewed with the Resident Physician. I agree with the documented findings, disposition and treatment plan as described except to the extent set forth below.
--- NOTE | 2017-11-15 08:42 | Physician Discharge Referral ---
<Mike Zamora - Last Filed: 11/15/17 08:40> [facility] Referral Info Transfer To: [facility] Provider in Charge: Dulce Provider in Charge after Transfer: PCP - Diagnosis (1) Blood loss anemia Priority: Primary Status: Acute (2) GI bleed Priority: Secondary Status: Acute (3) Chronic kidney disease, stage IV (severe) Priority: Secondary Status: Chronic (4) Clostridium difficile colitis Priority: Secondary Status: Acute (5) Diabetes Priority: Secondary Status: Chronic (6) Thrombocytopenia Priority: Secondary Status: Chronic (7) Myelofibrosis Priority: Secondary Status: Acute Prognosis: Fair Aware of Diagnosis: Patient, Family Aware of Prognosis: Patient, Family - Transfer Medications Home Medications: Atorvastatin Calcium [Lipitor] 10 mg PO DAILY 09/09/17 [History] Cholecalciferol (D-3) [Vitamin D] 1,000 unit PO DAILY 09/09/17 [History] Filgrastim [Neupogen] 480 mcg SQ TU 09/09/17 [History] Furosemide [Lasix] 40 mg PO BID 09/09/17 [History] Gabapentin [Neurontin] 200 mg PO BID 09/09/17 [History] Hydroxyzine HCl 20 mg PO BID 09/09/17 [History] Insulin NPH, HUMAN [HumuLIN N] 46 unit SQ QAM 09/09/17 [History] Insulin NPH, HUMAN [HumuLIN N] 50 units SQ QPM 09/09/17 [History] Isosorbide MONOnitrate (24 HR) [Imdur] 15 mg PO DAILY 09/09/17 [History] Omeprazole 20 mg PO BID 09/09/17 [History] Propranolol [Inderal] 20 mg PO BID 09/09/17 [History] Darbepoetin [Aranesp] 500 mcg SQ QWEEK 09/10/17 [History] Levothyroxine Sodium [Levoxyl] 125 mcg PO DAILY 11/06/17 [History] Multivit-Min/FA/Lycopen/Lutein [A Thru Z Select Multivit Tab] 1 tab PO DAILY 03/19 [History] Oxycodone HCl/Acetaminophen [Percocet 5-325 mg Tablet] 1 tab PO Q6H PRN [History] metOLazone [Zaroxolyn] 5 mg PO DAILY 11/06/17 [History] Calcitriol [Rocaltrol] 0.25 mcg PO DAILY capsule 11/15/17 [Rx] HydrOXYzine 10 mg PO HS PRN tablet 11/15/17 [Rx] Lactobacillus [Culturelle] 1 each PO BID cap.sprink 11/15/17 [Rx] Octreotide [SandoSTATIN] 50 mcg IVP BID syringe 11/15/17 [Rx] Ondansetron [Zofran] 4 mg IVP Q8HR PRN vial 11/15/17 [Rx] Pantoprazole [Protonix] 40 mg IVP Q12HR vial 11/15/17 [Rx] Allergies/Adverse Reactions: 3 Allergy/AdvReac Type Severity Reaction Status Date / Time lorazepam AdvReac Hallucinati Verified 09/12/17 08:38 ng metformin AdvReac See Verified 07/14/17 11:04 Comments niacin AdvReac [place] Verified 07/14/17 11:04 nitroglycerin AdvReac See Verified 07/14/17 11:04 Comments - Respiratory Orders None Smoking Cessation: Smoking cessation has been advised. For more information, call the [facility] Line at 4-349-YIQX-NOW. - Lab Orders Lab Orders: CBC, Other (include drug levels w/frequency) (BMP) - Advance Directives Code Status: DNR-Arrest/Don't Intubate - Mobility Orders Ambulate - Diet Orders Cardiac (diabetic) CERTIFICATION: I certify that the transfer of the above named patient to an Extended Care Facility is necessary for the continuing treatment of the diagnosis listed. The above information is true and accurate reflection of patient's current condition. Confidential - Redisclosure prohibited without a patient's written consent. <Miah Zuluaga H - Last Filed: 11/15/17 16:33> - Diagnosis (1) Blood loss anemia Status: Acute (2) GI bleed Status: Acute (3) Chronic kidney disease, stage IV (severe) Status: Chronic (4) Clostridium difficile colitis Status: Acute (5) Diabetes Status: Chronic (6) Thrombocytopenia Status: Chronic (7) Myelofibrosis Status: Acute - Respiratory Orders Smoking Cessation: Smoking cessation has been advised. For more information, call the [employer] Quit Line at 6-163-TYSB-NOW. CERTIFICATION: I certify that the transfer of the above named patient to an Extended Care Facility is necessary for the continuing treatment of the diagnosis listed. The above information is true and accurate reflection of patient's current condition. Confidential - Redisclosure prohibited without a patient's written consent.
[2017-11-15] MEDS: Isosorbide MONOnitrate (24 HR) 30 MG TAB.ER.24H PO SCH (09:07)
[2017-11-15] MEDS: Vancomycin Oral Soln 250 MG/5 ML UDC PO SCH ×4 (09:07→21:34)
[2017-11-15] MEDS: Lactobacillus 1 EACH CAP.SPRINK PO SCH ×2 (09:08→21:34)
[2017-11-15] MEDS: OXYCODONE Oral CONC 10 MG/0.5 ML ORAL.SYG SL PRN ×2 (17:12→21:33)
[2017-11-15] MEDS: Gabapentin 100 MG CAPSULE PO SCH (21:35)
[2017-11-15] MEDS: Acetaminophen 325 MG TABLET PO PRN (22:30)
[2017-11-16] MEDS: Pantoprazole 40 MG VIAL IVP SCH ×2 (07:08→19:53)
[2017-11-16 07:31] LABS: Hemoglobin 8.4 g/dL (12.9-16.9); Mean Corpuscular Hemoglobin 31.3 pg (28.0-33.3); Red Blood Count 2.68 M/mcL (4.19-5.50)
[2017-11-16 07:32] LABS: Hematocrit 27.2 % (37.5-50.1); Lymphocytes # 0.5 K/mcL (0.6-4.6); Mean Corpuscular HGB Conc 30.9 g/dL (31.6-35.5); Mean Corpuscular Volume 101.5 fL (83.0-100.0); Nucleated Red Blood Cells 4.1 /100 WBC (0); Red Cell Distribution Width 25.4 % (11.5-14.5)
[2017-11-16 07:46] LABS: Platelet Count 16 K/mcL (140-400)
[2017-11-16 07:47] LABS: Calcium 7.8 mg/dL (8.6-10.3); Potassium 4.5 mEq/L (3.5-5.1)
[2017-11-16 08:19] LABS: Monocytes # 0.2 K/mcL (0.0-1.3)
[2017-11-16 08:20] LABS: Basophilic Stippling 1+ (Not Present); Platelet Estimate Marked Decrease (Normal); Toxic Granulation Present (Not Present)
--- NOTE | 2017-11-16 08:49 | Internal Med Progress Note ---
<Mike Zamora - Last Filed: 11/16/17 08:45> Date of Encounter: 11/16/17 Time of Encounter: 08:45 - Assessment and plan (1) Blood loss anemia Current Visit: Yes Status: Acute Assessment and plan: Secondary to GI bleed in setting of MDS, thrombocytopenia hgb stable (2) GI bleed Current Visit: Yes Status: Acute Assessment and plan: no signs of acute bleeding at this point Hemoglobin stable. Continue PPI twice a day. Qualifiers: GI bleed type/associated pathology: unspecified gastrointestinal hemorrhage type Qualified Code(s): K92.2 - Gastrointestinal hemorrhage, unspecified (3) Chronic kidney disease, stage IV (severe) Current Visit: Yes Status: Chronic Assessment and plan: stable continue to monitor (4) Clostridium difficile colitis Current Visit: Yes Status: Acute Assessment and plan: Stool panel positive for C. difficile. vanc day 01/09. formed bowel movements (5) Diabetes Current Visit: Yes Status: Chronic Assessment and plan: controlled Continue diabetic diet. Continue insulin regimen and sliding scale. Qualifiers: Diabetes mellitus type: type 2 Diabetes mellitus watermaster insulin use: with prison use Diabetes mellitus complication status: without complication Qualified Code(s): E11.9 - Type 2 diabetes mellitus without complications; Z79.4 - USP (current) use of insulin; Z79.4 - USP ( current) use of insulin; Z79.4 - salvage determiner (current) use of insulin; Z79.4 - USP (current) use of insulin (6) Thrombocytopenia Current Visit: Yes Status: Chronic Assessment and plan: 16 this morning will replace before d/c patient patient will get hgb and platelets [facility] (7) Myelofibrosis Current Visit: Yes Status: Acute Assessment and plan: follow up with hematology outpatient. - Subjective Interval history: Patient tolerating breakfast this morning. He had 2 formed elements since midnight without hematochezia or melena. His abdominal pain is improved. He denies nausea/vomiting. He is able to ambulate without assistance. - Constitutional Vitals: Temp Pulse Resp BP Pulse Ox 97.8 F 91 18 126/80 97 11/16/17 07:20 11/16/17 07:20 11/16/17 07:20 11/16/17 07:20 11/16/17 07:20 General appearance: Present: A&O X 3, pleasant, no acute distress, answers questions appropriately - Other Additional findings: General: Pleasant without distress HEENT: Head atraumatic, normocephalic, EOMI, PERRL, neck nontender to palpation , absent lymphadenopathy, Moist Mucous Membranes, Heart: Regular rate and rhythm with no murmur Lungs: Clear to auscultation bilaterally Abdomen: Soft nontender, nondistended positive bowel sounds Skin: warm and dry Extremities: Absent pedal edema, Neuro: Cranial nerves II through XII intact, UE and LE sensation equal bilaterally, UE and LE strength 4/5, alert oriented 3, Vascular: Pedal and radial pulses 2 out of 4 Internal Medicine: Result - Labs CBC & Chem 7: 11/16/17 07:08 11/16/17 04:00 Labs: Short CBC 11/16/17 Range/Units 07:08 WBC 1.7 L (4.3-11.1) K/mcL Hgb 8.4 L (12.9-16.9) g/dL Hct 27.2 L (37.5-50.1) % Plt Count 16 L* (140-400) K/mcL Neutrophils # 1.0 L (1.6-8.9) K/mcL BMP 11/16/17 04:00 Sodium 136 Potassium 4.5 Chloride 111 H Carbon Dioxide 21 L BUN 42 H Creatinine 1.92 H Glucose 183 H Calcium 7.8 L - ABG Interpretation ABG results: PT/INR, D-dimer PT 14.3 Seconds (9.4-12.1) H 11/11/17 17:18 - VTE Documentation of Mechanical Device: Intermittent pneumatic compression device Consult Discharge Plan - Plan [facility]errals: [facility] Provider[facility] - 12/03/17 10:00 am Laverne Mckinney MD [Partnered Physician] - (SENT WEB REQUEST ON 11-07-16 @ [id number]) <Saroj Horner - Last Filed: 11/16/17 13:39> Date of Encounter: 11/16/17 Time of Encounter: 10:00 - Assessment and plan (1) Blood loss anemia Current Visit: Yes Status: Acute (2) Chronic kidney disease, stage IV (severe) Current Visit: Yes Status: Chronic (3) Clostridium difficile colitis Current Visit: Yes Status: Acute (4) Diabetes Current Visit: Yes Status: Chronic Qualifiers: Diabetes mellitus type: type 2 Diabetes mellitus prison insulin use: with prison use Diabetes mellitus complication status: without complication Qualified Code(s): E11.9 - Type 2 diabetes mellitus without complications; Z79.4 - salvage determiner (current) use of insulin; Z79.4 - salvage determiner ( current) use of insulin; Z79.4 - USP (current) use of insulin; Z79.4 - salvage determiner (current) use of insulin (5) GI bleed Current Visit: Yes Status: Acute Qualifiers: GI bleed type/associated pathology: unspecified gastrointestinal hemorrhage type Qualified Code(s): K92.2 - Gastrointestinal hemorrhage, unspecified (6) Myelofibrosis Current Visit: Yes Status: Acute (7) Thrombocytopenia Current Visit: Yes Status: Chronic - Constitutional Vitals: Temp Pulse Resp BP Pulse Ox 98 F 88 18 136/84 96 11/16/17 12:00 11/16/17 12:00 11/16/17 12:00 11/16/17 12:00 11/16/17 12:00 Internal Medicine: Result - Labs CBC & Chem 7: 11/16/17 07:08 11/16/17 04:00 Labs: Short CBC 11/16/17 Range/Units 07:08 WBC 1.7 L (4.3-11.1) K/mcL Hgb 8.4 L (12.9-16.9) g/dL Hct 27.2 L (37.5-50.1) % Plt Count 16 L* (140-400) K/mcL Neutrophils # 1.0 L (1.6-8.9) K/mcL BMP 11/16/17 04:00 Sodium 136 Potassium 4.5 Chloride 111 H Carbon Dioxide 21 L BUN 42 H Creatinine 1.92 H Glucose 183 H Calcium 7.8 L - ABG Interpretation ABG results: PT/INR, D-dimer PT 14.3 Seconds (9.4-12.1) H 11/11/17 17:18 - Attending Attestation I examined this patient and my medical decision-making was reviewed with the Resident Physician, Mike Zamora. I agree with the documented findings, disposition and treatment plan as described with any changes as documented below. Patient is awake and alert. Doing better. Frequency of diarrheal stools improving. More formed now. Denies any abdominal pain. No hematemesis or melena reported. [facility]. Continue oral vancomycin. Planned 10 day treatment course for second episode of C. difficile previously treated with Flagyl. Continues to have low platelet count. Transfusion ordered for today. We will avoid more transfusions unless patient develops acute bleeding or platelets less than 10. Neutropenic and leukopenic. Receiving Neupogen. Continue to monitor blood counts. Blood sugars are coming more consistently elevated. We will add small dose of long- acting insulin coverage.
[2017-11-16] MEDS: Lactobacillus 1 EACH CAP.SPRINK PO SCH ×2 (09:02→22:05)
[2017-11-16] MEDS: Isosorbide MONOnitrate (24 HR) 30 MG TAB.ER.24H PO SCH (09:02)
[2017-11-16] MEDS: Octreotide 50 MCG/ML SYRINGE IVP SCH ×2 (09:03→22:07)
[2017-11-16] MEDS: Insulin LISPRO 300 UNITS/3 ML VIAL SQ SCH ×4 (09:03→22:11)
[2017-11-16] MEDS: Vancomycin Oral Soln 250 MG/5 ML UDC PO SCH ×4 (09:03→22:06)
[2017-11-16] MEDS: Cholestyramine 4 GM POWD.PACK PO SCH ×3 (11:55→22:05)
[2017-11-16] MEDS: Insulin DETEMIR 100 UNIT/ML X5UNITS SQ SCH (14:26)
[2017-11-16] MEDS: OXYCODONE Oral CONC 10 MG/0.5 ML ORAL.SYG SL PRN ×2 (16:25→22:05)
[2017-11-16] MEDS: *HR* HYDROcodone/Acet 5/325 mg TABLET PO PRN (19:55)
[2017-11-16] MEDS: Gabapentin 100 MG CAPSULE PO SCH (22:05)
[2017-11-17] MEDS: Pantoprazole 40 MG VIAL IVP SCH ×2 (05:32→17:14)
[2017-11-17] MEDS: Lactobacillus 1 EACH CAP.SPRINK PO SCH (08:04)
[2017-11-17] MEDS: Isosorbide MONOnitrate (24 HR) 30 MG TAB.ER.24H PO SCH (08:04)
[2017-11-17] MEDS: Insulin LISPRO 300 UNITS/3 ML VIAL SQ SCH ×3 (08:05→17:14)
[2017-11-17] MEDS: Vancomycin Oral Soln 250 MG/5 ML UDC PO SCH ×3 (08:20→17:14)
--- NOTE | 2017-11-17 10:39 | Internal Med Progress Note ---
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 (2) GI bleed Current Visit: Yes Status: Acute Assessment and plan: no signs of acute bleeding at this point Hemoglobin stable. Continue PPI twice a day. Qualifiers: GI bleed type/associated pathology: unspecified gastrointestinal hemorrhage type Qualified Code(s): K92.2 - Gastrointestinal hemorrhage, unspecified (3) Chronic kidney disease, stage IV (severe) Current Visit: Yes Status: Chronic Assessment and plan: stable continue to monitor (4) Clostridium difficile colitis Current Visit: Yes Status: Acute Assessment and plan: Stool panel positive for C. difficile. vanc day 02/09. formed bowel movements today (5) Diabetes Current Visit: Yes Status: Chronic Assessment and plan: controlled Continue diabetic diet. Continue insulin regimen and sliding scale. Qualifiers: Diabetes mellitus type: type 2 Diabetes mellitus exterminator termite insulin use: with exterminator termite use Diabetes mellitus complication status: without complication Qualified Code(s): E11.9 - Type 2 diabetes mellitus without complications; Z79.4 - keno terminal operator (current) use of insulin; Z79.4 - keno terminal operator ( current) use of insulin; Z79.4 - group home (current) use of insulin; Z79.4 - group home (current) use of insulin (6) Thrombocytopenia Current Visit: Yes Status: Chronic Assessment and plan: stable Follow-up with [facility] for repeat CBC. (7) Myelofibrosis Current Visit: Yes Status: Acute Assessment and plan: follow up with hematology outpatient. - Subjective Interval history: Patient tolerating breakfast this morning. Bowel movements former currently. Will be discharged today. His abdominal pain is improved. He denies nausea/ vomiting. He is able to ambulate without assistance. - Constitutional Vitals: Temp Pulse Resp BP Pulse Ox 97.8 F 87 18 135/71 96 11/17/17 07:17 11/17/17 08:24 11/17/17 07:17 11/17/17 07:17 11/17/17 07:17 General appearance: Present: A&O X 3, pleasant, no acute distress, answers questions appropriately - Other Additional findings: General: plesant without distress HEENT: Head atraumatic, normocephalic, EOMI, PERRL, neck nontender to palpation , absent lymphadenopathy, Moist Mucous Membranes, Heart: Regular rate and rhythm with no murmur Lungs: Clear to auscultation bilaterally Abdomen: Soft nontender, nondistended positive bowel sounds Skin: warm and dry Extremities: Absent pedal edema, Neuro: Cranial nerves II through XII intact, UE and LE sensation equal bilaterally, UE and LEstrength 5/5, alert oriented 3, Vascular: Pedal and radial pulses 2 out of 4 Internal Medicine: Result - Labs CBC & Chem 7: 11/16/17 07:08 11/16/17 04:00 - ABG Interpretation ABG results: PT/INR, D-dimer PT 14.3 Seconds (9.4-12.1) H 11/11/17 17:18 - VTE Documentation of Mechanical Device: Intermittent pneumatic compression device Consult Discharge Plan - Plan [facility]errals: [facility] Provider[facility] - 12/03/17 10:00 am Laverne Mckinney MD [Partnered Physician] - (SENT WEB REQUEST ON 11-07-16 @ [id number]) Prescriptions: Pantoprazole Sodium [Protonix] 40 mg PO BID #60 tablet. Sucralfate [Carafate] 1 gm PO TIDAC #90 tablet Vancomycin Oral Soln [Vancocin] 125 mg PO QID #16 udc <Saroj Horner - Last Filed: 11/17/17 14:06> Date of Encounter: 11/17/17 Time of Encounter: 10:35 - Assessment and plan (1) Blood loss anemia Current Visit: Yes Status: Acute (2) Chronic kidney disease, stage IV (severe) Current Visit: Yes Status: Chronic (3) Clostridium difficile colitis Current Visit: Yes Status: Acute (4) Diabetes Current Visit: Yes Status: Chronic Qualifiers: Diabetes mellitus type: type 2 Diabetes mellitus exterminator termite insulin use: with exterminator termite use Diabetes mellitus complication status: without complication Qualified Code(s): E11.9 - Type 2 diabetes mellitus without complications; Z79.4 - keno terminal operator (current) use of insulin; Z79.4 - group home ( current) use of insulin; Z79.4 - keno terminal operator (current) use of insulin; Z79.4 - group home (current) use of insulin (5) GI bleed Current Visit: Yes Status: Acute Qualifiers: GI bleed type/associated pathology: unspecified gastrointestinal hemorrhage type Qualified Code(s): K92.2 - Gastrointestinal hemorrhage, unspecified (6) Myelofibrosis Current Visit: Yes Status: Acute (7) Thrombocytopenia Current Visit: Yes Status: Chronic - Constitutional Vitals: Temp Pulse Resp BP Pulse Ox 98.3 F 90 18 127/71 97 11/17/17 11:37 11/17/17 11:55 11/17/17 11:37 11/17/17 11:37 11/17/17 11:37 Internal Medicine: Result - Labs CBC & Chem 7: 11/16/17 07:08 11/16/17 04:00 - ABG Interpretation ABG results: PT/INR, D-dimer PT 14.3 Seconds (9.4-12.1) H 11/11/17 17:18 - Attending Attestation I examined this patient and my medical decision-making was reviewed with the Resident Physician, Mike Zamora. I agree with the documented findings, disposition and treatment plan as described with any changes as documented below. Patient is doing well. Diarrhea has improved. Patient is having more formed stools now. Tolerating diet well. Stable for discharge from medical standpoint. We will complete 10 day course of oral vancomycin for C. difficile colitis. He will have his blood work checked on Saturday and follow-up with oncology.
[2017-11-17] MEDS: Insulin DETEMIR 100 UNIT/ML X5UNITS SQ SCH (10:40)
[2017-11-17] MEDS: Octreotide 50 MCG/ML SYRINGE IVP SCH (10:40)
[2017-11-17] MEDS: Cholestyramine 4 GM POWD.PACK PO SCH ×2 (10:40→14:41)
[2017-11-17 11:39] VITALS: BP 127/71
[2017-11-17] MEDS: OXYCODONE Oral CONC 10 MG/0.5 ML ORAL.SYG SL PRN (14:41)
[2017-11-17] MEDS: Acetaminophen 325 MG TABLET PO PRN (17:17)
== END 2017-11-17 18:00 | DRG 378 ==
LOC: EMEROO 11:06 → SUATTDRO 16:07 → 2NNU 16:07
PROVIDERS: ADMIT Internal Medicine; ATTEND Internal Medicine
PROC: ENDOCBX (2017-11-10 10:00)
PROC: ENDOCCB (2017-11-13 13:30)